=== PATIENT | female | born 1985 | race Caucasian/White ===

== ENCOUNTER 2019-10-19 22:20 | Inpatient (IN) | payer BC, OTHER ==
--- NOTE | 2019-10-19 22:34 | EDM.PDOC ---
ED HPI GENERAL MEDICAL PROBLEM - General Stated Complaint: SKIN CONDITION Time Seen by Provider: 10/19/19 22:21 Source of Information: Reports: Patient History Limitations: Reports: No Limitations - History of Present Illness INITIAL COMMENTS - FREE TEXT/NARRATIVE: 34 yo F history type 2 diabetes presents with perirectal abscess since last . She tried to drain it was very sterile razor blade, and states it ruptured on Friday with minimal drainage. Pain has worsened since. It is localized to the perirectal region, constant, exacerbated with sitting, moderate in severity, nonradiating. Patient denies fever, chills, headache, chest pain, shortness of breath, abdominal pain, focal numbness or weakness. ROS: A 10-point review of systems, other than pertinent positives and negatives as stated per HPI, is otherwise negative Past medical history: No additional pertinent history Past Surgical history: No additional pertinent history Social history: No additional pertinent history Family history: No additional pertinent history PHYSICAL EXAM General: AOx4, GCS = 15, mild distress HEENT: dry mucous membrane Neck: supple, no meningismus, no Kernig or Brudzinski Cardiac: S1S2 tachycardia Respiratory: CTAB, no crackles or rales, no wheezing Abdomen: Soft, nontender, no rebound or guarding, nondistended, no pulsatile mass. perirectal abscess and tenderness Back: nontender Musculoskeletal: NVI distally, no deformity Neuro: No focal deficits, CN 2 - 12 WNL. mid gluteal area Pain Score (Numeric/FACES): 10 - Related Data Allergies Allergy/AdvReac Type Severity Reaction Status Date / Time No Known Allergies Allergy Verified 10/19/19 22:40 Home Meds: Home Meds FLUoxetine [PROzac] 25 mg PO DAILY 10/19/19 [History] metFORMIN [Glucophage] 1,000 mg PO BIDMEALS 10/19/19 [History] ED ROS GENERAL - Review of Systems Review Of Systems: Comprehensive ROS is negative, except as noted in HPI. ED EXAM, GENERAL - Physical Exam Exam: See Below (see dictation) Course - Vital Signs Last Recorded V/S: Last Vital Signs Temp 97.5 F 10/19/19 22:40 Pulse 107 H 10/19/19 23:25 Resp 18 10/19/19 23:25 BP 107/69 10/19/19 23:25 Pulse Ox 98 10/19/19 23:25 - Orders/Labs/Meds Orders: Active Orders 24 hr Category Date Time Status Admission Status [Patient Status] [ADT] Stat ADT 10/20/19 01:37 Ordered CORONAVIRUS COVID-19 PCR PHL Stat Lab 10/20/19 01:30 Ordered CULTURE BLOOD [BC] Stat Lab 10/20/19 01:30 Ordered CULTURE BLOOD [BC] Stat Lab 10/20/19 01:35 Ordered LACTIC ACID,WHOLE BLOOD [BG] Stat Lab 10/20/19 01:36 Ordered Lactated Ringers [Ringers, Lactated] 1,000 ml Med 10/20/19 01:40 Ordered IV .BOLUS Piperacillin/Tazobactam [Piperacil-Tazobact] 3.375 gm Med 10/20/19 01:28 Ordered Sodium Chloride 0.9% [Normal Saline] 50 ml IV ONETIME Vancomycin 1 gm Med 10/20/19 01:28 Ordered Sodium Chloride 0.9% [Normal Saline (AdvBag)] 250 ml IV ONETIME Medication Orders Piperacillin Sod/Tazobactam (Sod 3.375 gm/ Sodium Chloride) 50 mls @ 100 mls/hr IV ONETIME ONE Stop: 10/20/19 01:57 Vancomycin HCl 1 gm/ Sodium (Chloride) 250 mls @ 166 mls/hr IV ONETIME ONE Stop: 10/20/19 02:58 Labs: Laboratory Tests 10/19/19 10/19/19 10/19/19 Range/Units 23:10 23:10 23:10 WBC 12.51 H (4.0-11.0) K/uL RBC 3.89 L (4.30-5.90) M/uL Hgb 11.9 L (12.0-16.0) g/dL Hct 35.7 L (36.0-46.0) % MCV 91.8 (80.0-98.0) fL MCH 30.6 (27.0-32.0) pg MCHC 33.3 (31.0-37.0) g/dL RDW Std Deviation 43.1 (28.0-62.0) fl RDW Coeff of [place] 13 (11.0-15.0) % Plt Count 411 H (150-400) K/uL MPV 10.00 (7.40-12.00) fL Neut % (Auto) 82.2 H (48.0-80.0) % Lymph % (Auto) 11.2 L (16.0-40.0) % [place] % (Auto) 5.6 (0.0-15.0) % Eos % (Auto) 0.8 (0.0-7.0) % Baso % (Auto) 0.2 (0.0-1.5) % Neut # (Auto) 10.3 H (1.4-5.7) K/uL Lymph # (Auto) 1.4 (0.6-2.4) K/uL [place] # (Auto) 0.7 (0.0-0.8) K/uL Eos # (Auto) 0.1 (0.0-0.7) K/uL Baso # (Auto) 0.0 (0.0-0.1) K/uL Nucleated RBC % 0.0 /100WBC Nucleated RBCs # 0 K/uL APTT 25.0 (18.6-31.3) SEC Sodium 132 L (136-145) mmol/L Potassium 4.2 (3.5-5.1) mmol/L Chloride 100 (98-107) mmol/L Carbon Dioxide 18.5 L (21.0-32.0) mmol/L BUN 20 H (7.0-18.0) mg/dL Creatinine 1.2 H (0.6-1.0) mg/dL Est Cr Clr Drug Dosing 66.01 mL/min Estimated GFR (MDRD) 51.1 ml/min Glucose 615 H* (74-106) mg/dL Calcium 8.8 (8.5-10.1) mg/dL Total Bilirubin 0.2 (0.2-1.0) mg/dL AST 10 L (15-37) IU/L ALT 9 L (14-63) IU/L Alkaline Phosphatase 93 (46-116) U/L Total Protein 7.3 (6.4-8.2) g/dL Albumin 3.3 L (3.4-5.0) g/dL Globulin 4.0 (2.6-4.0) g/dL Albumin/Globulin Ratio 0.8 L (0.9-1.6) HCG, Qual (NEG) Ketones (NEG) 10/19/19 10/20/19 Range/Units 23:10 23:10 WBC (4.0-11.0) K/uL RBC (4.30-5.90) M/uL Hgb (12.0-16.0) g/dL Hct (36.0-46.0) % MCV (80.0-98.0) fL MCH (27.0-32.0) pg MCHC (31.0-37.0) g/dL RDW Std Deviation (28.0-62.0) fl RDW Coeff of [place] (11.0-15.0) % Plt Count (150-400) K/uL MPV (7.40-12.00) fL Neut % (Auto) (48.0-80.0) % Lymph % (Auto) (16.0-40.0) % [place] % (Auto) (0.0-15.0) % Eos % (Auto) (0.0-7.0) % Baso % (Auto) (0.0-1.5) % Neut # (Auto) (1.4-5.7) K/uL Lymph # (Auto) (0.6-2.4) K/uL [place] # (Auto) (0.0-0.8) K/uL Eos # (Auto) (0.0-0.7) K/uL Baso # (Auto) (0.0-0.1) K/uL Nucleated RBC % /100WBC Nucleated RBCs # K/uL APTT (18.6-31.3) SEC Sodium (136-145) mmol/L Potassium (3.5-5.1) mmol/L Chloride (98-107) mmol/L Carbon Dioxide (21.0-32.0) mmol/L BUN (7.0-18.0) mg/dL Creatinine (0.6-1.0) mg/dL Est Cr Clr Drug Dosing mL/min Estimated GFR (MDRD) ml/min Glucose (74-106) mg/dL Calcium (8.5-10.1) mg/dL Total Bilirubin (0.2-1.0) mg/dL AST (15-37) IU/L ALT (14-63) IU/L Alkaline Phosphatase (46-116) U/L Total Protein (6.4-8.2) g/dL Albumin (3.4-5.0) g/dL Globulin (2.6-4.0) g/dL Albumin/Globulin Ratio (0.9-1.6) HCG, Qual NEGATIVE (NEG) Ketones NEGATIVE (NEG) Meds: Medications Generic Name Dose Route Start Last Admin Trade Name Freq PRN Reason Stop Dose Admin Piperacillin Sod/Tazobactam 50 mls @ 100 mls/hr 10/20/19 01:28 Sod 3.375 gm/ Sodium Chloride IV 10/20/19 01:57 ONETIME ONE Vancomycin HCl 1 gm/ Sodium 250 mls @ 166 mls/hr 10/20/19 01:28 Chloride IV 10/20/19 02:58 ONETIME ONE Discontinued Medications Generic Name Dose Route Start Last Admin Trade Name Freq PRN Reason Stop Dose Admin Lactated Ringer's 1,000 mls @ 999 mls/hr 10/19/19 23:08 10/19/19 23:29 Ringers, Lactated IV 10/20/19 00:08 999 mls/hr .BOLUS ONE Administration Lactated Ringer's 1,000 mls @ 999 mls/hr 10/20/19 00:12 10/20/19 00:40 Ringers, Lactated IV 10/20/19 01:12 999 mls/hr .BOLUS ONE Administration Insulin Human Regular 8 unit 10/20/19 00:13 10/20/19 00:41 Novolin R IVPUSH 10/20/19 00:14 8 unit ONETIME ONE Administration Protocol Iopamidol 75 ml 10/20/19 00:38 10/20/19 00:39 Isovue Multipack-370 (76%) IVPUSH 10/20/19 00:39 75 ml ONETIME STA Administration Morphine Sulfate 4 mg 10/19/19 23:08 10/19/19 23:29 Morphine IVPUSH 10/19/19 23:09 4 mg ONETIME ONE Administration - Re-Assessments/Exams Free Text/Narrative Re-Assessment/Exam: 10/20/19 00:13 Ordered second liter IV fluids and 8 units IV regular insulin for blood glucose = 615 with anion gap of 13 10/20/19 01:[address] Robb, who agrees to admit patient to obs/tele. Initiated vancomycin and zosyn IV. The hospitalist's documentation supersedes all other documentation on this patient with regard to any conflicts or discrepancies from this point forward. Any emergency conditions have been treated to the ability of the ED prior to admission. 10/20/19 01:41 SHe was ordered 3L IVF, given IV Abx. She is hemodynamically stable after fluid resuscitation. Blood cultures x2 and lactate drawn. Departure - Departure Time of Disposition: 01:39 Disposition: Refer to Observation Condition: Good Clinical Impression: Cellulitis, Abscess, Hyperglycemia, Sepsis - Discharge Information *PRESCRIPTION DRUG MONITORING PROGRAM REVIEWED*: Not Applicable *COPY OF PRESCRIPTION DRUG MONITORING REPORT IN PATIENT LANG: Not Applicable Referrals: PCP,Not In Area [Primary Care Provider] - Critical Care Note - Critical Care Note Total Time (mins): 40 Comments: Critical Care: The high probability of sudden, clinically significant deterioration in the patient's condition required the highest level of my preparedness to intervene urgently. The services I provided to this patient were to treat and/or prevent clinically significant deterioration. Services included the following: chart data review, reviewing nursing notes and/or old charts, documentation time, analysis consultant collaboration regarding findings and treatment options, medication orders and management, direct patient care, vital sign assessments and ordering, interpreting and reviewing diagnostic studies/lab tests. Aggregate critical care time includes only time during which I was engaged in work directly related to the patient's care, as described above, whether at the bedside or elsewhere in the Emergency Department. It did not include time spent performing other reported procedures or the services of residents, students, nurses or physician assistants. Frequent interventions and/or frequent repeat evaluations were required as well as counseling and coordination of care regarding prognosis, treatments, and discussions with patient, staff and consultants. Critical Care (excluding other procedures): 40 minutes Sepsis Event Note (ED) - Focused Exam Vital Signs: Vital Signs Temp Pulse Resp BP Pulse Ox 10/19/19 23:25 107 H 18 107/69 98 10/19/19 22:40 97.5 F 126 H 18 144/94 H 98 - My Orders Last 24 Hours: My Active Orders 10/20/19 01:28 Piperacillin/Tazobactam [Piperacil-Tazobact] 3.375 gm Sodium Chloride 0.9% [Normal Saline] 50 ml IV ONETIME Vancomycin 1 gm Sodium Chloride 0.9% [Normal Saline (AdvBag)] 250 ml IV ONETIME 10/20/19 01:30 CORONAVIRUS COVID-19 PCR PHL Stat CULTURE BLOOD [BC] Stat 10/20/19 01:35 CULTURE BLOOD [BC] Stat 10/20/19 01:36 LACTIC ACID,WHOLE BLOOD [BG] Stat 10/20/19 01:37 Admission Status [Patient Status] [ADT] Stat 10/20/19 01:40 Lactated Ringers [Ringers, Lactated] 1,000 ml IV .BOLUS - Assessment/Plan Last 24 Hours: My Active Orders 10/20/19 01:28 Piperacillin/Tazobactam [Piperacil-Tazobact] 3.375 gm Sodium Chloride 0.9% [Normal Saline] 50 ml IV ONETIME Vancomycin 1 gm Sodium Chloride 0.9% [Normal Saline (AdvBag)] 250 ml IV ONETIME 10/20/19 01:30 CORONAVIRUS COVID-19 PCR PHL Stat CULTURE BLOOD [BC] Stat 10/20/19 01:35 CULTURE BLOOD [BC] Stat 10/20/19 01:36 LACTIC ACID,WHOLE BLOOD [BG] Stat 10/20/19 01:37 Admission Status [Patient Status] [ADT] Stat 10/20/19 01:40 Lactated Ringers [Ringers, Lactated] 1,000 ml IV .BOLUS
[2019-10-19] MEDS ORDERED: Morphine 4 MG/ML Syringe IVPUSH ONE (23:08)
[2019-10-19] MEDS ORDERED: Lactated Ringers 1,000 ML IV ONE (23:08)
[2019-10-19 23:42] LABS: CARBON DIOXIDE,CO2 18.5 mmol/L (21.0-32.0); POTASSIUM,K 4.2 mmol/L (3.5-5.1)
[2019-10-20] MEDS ORDERED: Lactated Ringers 1,000 ML IV ONE ×2 (00:12→01:40)
[2019-10-20] MEDS ORDERED: Insulin Regular, Human 100 Units/ML 10 ML Vial IVPUSH ONE (00:13)
[2019-10-20] MEDS ORDERED: Iopamidol 755 MG/ML 500 ML Multipack Bottle IVPUSH STA (00:38)
--- NOTE | 2019-10-20 00:51 | CT ---
INDICATION: Perirectal abscess TECHNIQUE: CT pelvis with 75 cc Isovue 370 intravenous contrast. COMPARISON: None FINDINGS: Bowel: No dilated loops of large or small intestine. Pelvis: The bladder is unremarkable. Uterus is anteverted. No adnexal mass. Rectum and anus: At the right posterior perianal tissues, just distal to the anal sphincter there is fat stranding which extends into the subcutaneous tissues to the level of the skin surface. There is some amorphous low-density within this area measuring up to 11 millimeters in maximal diameter. This shows some partial rim enhancement. Other: Right inguinal lymph nodes measure up to 12 millimeters in short axis. IMPRESSION: 1. Right posterior perianal fat stranding consistent with cellulitis. Just distal to the anal sphincter there is an 11 millimeter area of poorly defined fluid, likely phlegmon versus early/forming abscess. Please note that all CT scans at this facility use dose modulation, iterative reconstruction, and/or weight-based dosing when appropriate to reduce radiation dose to as low as reasonably achievable. Dictated by Ace Muñiz MD @ Oct 20 2019 12:37AM Signed by Dr. Ace Muñiz @ Oct 20 2019 12:50AM
[2019-10-20] MEDS ORDERED: Piperacillin/Tazobactam 3.375 GM in Sodium Chloride 0.9% 50 ML IV ONE (01:28)
[2019-10-20] MEDS ORDERED: Morphine 4 MG/ML Syringe IVPUSH ONE (02:29)
[2019-10-20] MEDS ORDERED: Ondansetron 4 MG/2 ML SDV IVPUSH ONE (02:29)
[2019-10-20] MEDS: Morphine 2 MG/ML SYRINGE IVPUSH PRN ×4 (04:15→15:04)
[2019-10-20] MEDS: Lactated Ringers 1,000 ML IV SCH ×2 (04:15→17:45)
[2019-10-20] MEDS ORDERED: Insulin Aspart 100 Units/ML 3 ML Pen SUBCUT SCH ×2 (07:30→12:00)
--- NOTE | 2019-10-20 08:31 | PCM.HP.2 ---
<[place] - Last Filed: 10/20/19 12:02> H&P History of Present Illness - General Date of Service: 10/20/19 Admit Problem/Dx: Admission Diagnosis/Problem Admission Diagnosis/Problem Cellulitis Source of Information: Patient - History of Present Illness Initial Comments - Free Text/Narative: Patient is a 34-year-old female with a significant past medical history of type 2 diabetes presenting today with concerns about abscess formation around the rectum. States on noticing some pain in the perirectal area thinking it was a hemorrhoid; noticed pain was worsening and tried popping the region with a razor blade; sterile. However this morning states the pain has increased and proceeded to the ED. Throughout this time patient denies any fevers, chills, body aches, constipation. Did endorse not taking her metformin for the past 4 days secondary to not eating as much. ED; received 2 L IV normal saline with 8 units of insulin secondary to blood glucose of 650. CT pelvis showed area of cellulitis with concerns about early abscess versus phlegmon formation. No rectal involvement at this time Bedside; endorsing pain has improved but is still interfering with her sleep denies any fevers, chills, body aches, constipation, diarrhea. Denies any anal intercourse, foreign body insertion or hair plucking. mid gluteal area Pain Score (Numeric/FACES): 8 - Related Data Allergies/Adverse Reactions: Allergies Allergy/AdvReac Type Severity Reaction Status Date / Time No Known Allergies Allergy Verified 10/20/19 03:43 Home Medications: Home Meds FLUoxetine [PROzac] 20 mg PO DAILY 10/19/19 [History] metFORMIN [Glucophage] 1,000 mg PO BIDMEALS 10/19/19 [History] glyBURIDE [Micronase] 5 mg PO DAILY 10/20/19 [History] Past Medical History HEENT History: Reports: None Cardiovascular History: Reports: None Respiratory History: Reports: None Gastrointestinal History: Reports: None Genitourinary History: Reports: None TREE PRUNER History: Reports: None Musculoskeletal History: Reports: None Neurological History: Reports: None Psychiatric History: Reports: Anxiety, Depression Endocrine/Metabolic History: Reports: Diabetes, Type II Insulin Pump Model and Toddler Caregiver: None Hematologic History: Reports: None Immunologic History: Reports: None Oncologic (Cancer) History: Reports: None Dermatologic History: Reports: None - Infectious Disease History Infectious Disease History: Reports: None - Past Surgical History Head Surgeries/Procedures: Reports: None Female Surgical History: Reports: None Social & Family History - Tobacco Use Smoking Status *Q: Current Every Day Smoker Years of Tobacco use: 20 Packs/Tins Daily: 1.5 - Caffeine Use Caffeine Use: Reports: None - Recreational Drug Use Recreational Drug Use: No H&P Review of Systems - Review of Systems: Review Of Systems: See Below General: Reports: No Symptoms. Denies: Fever, Chills, Malaise HEENT: Reports: No Symptoms Pulmonary: Reports: No Symptoms Cardiovascular: Reports: No Symptoms Gastrointestinal: Reports: Other (rectal pain ). Denies: Bloody Stool, Constipation, Diarrhea, Decreased Appetite, Nausea, Vomiting Genitourinary: Reports: No Symptoms Musculoskeletal: Reports: No Symptoms Psychiatric: Reports: No Symptoms Neurological: Reports: No Symptoms Exam - Exam Exam: See Below - Vital Signs Vital Signs: Last Vital Signs Temp 98.6 F 10/20/19 07:00 Pulse 101 H 10/20/19 07:00 Resp 16 10/20/19 07:00 BP 109/72 10/20/19 07:00 Pulse Ox 97 10/20/19 07:00 Weight: 71.259 kg - Exam Quality Assessment: No: Supplemental Oxygen General: Alert, Oriented HEENT: EOMI, Hearing Intact Neck: Supple, Trachea Midline Lungs: Clear to Auscultation, Normal Respiratory Effort Cardiovascular: Regular Rate, Regular Rhythm GI/Abdominal Exam: Soft, Non-Tender Rectal (Female) Exam: Tenderness, Other (margot-rectal tenderness from 2 o'clock top 6 o'clock position; no signs of bleeding; good rectal tone . nurse :elle present in room; no overt fluctuance appreciated ..) Back Exam: Normal Inspection Extremities: Normal Inspection Skin: Warm, Dry Neurological: Cranial Nerves Intact Neuro Extensive - Mental Status: Alert, Oriented x3, Normal Mood/Affect Neuro Extensive - Motor, Sensory, Reflexes: CN II-XII Intact Psychiatric: Alert, Normal Affect, Normal Mood - Patient Data Lab Results Last 24 hrs: Laboratory Results - last 24 hr 10/19/19 10/19/19 10/19/19 Range/Units 23:10 23:10 23:10 WBC 12.51 H (4.0-11.0) K/uL RBC 3.89 L (4.30-5.90) M/uL Hgb 11.9 L (12.0-16.0) g/dL Hct 35.7 L (36.0-46.0) % MCV 91.8 (80.0-98.0) fL MCH 30.6 (27.0-32.0) pg MCHC 33.3 (31.0-37.0) g/dL RDW Std Deviation 43.1 (28.0-62.0) fl RDW Coeff of Yuin 13 (11.0-15.0) % Plt Count 411 H (150-400) K/uL MPV 10.00 (7.40-12.00) fL Neut % (Auto) 82.2 H (48.0-80.0) % Lymph % (Auto) 11.2 L (16.0-40.0) % Arthur % (Auto) 5.6 (0.0-15.0) % Eos % (Auto) 0.8 (0.0-7.0) % Baso % (Auto) 0.2 (0.0-1.5) % Neut # (Auto) 10.3 H (1.4-5.7) K/uL Lymph # (Auto) 1.4 (0.6-2.4) K/uL Arthur # (Auto) 0.7 (0.0-0.8) K/uL Eos # (Auto) 0.1 (0.0-0.7) K/uL Baso # (Auto) 0.0 (0.0-0.1) K/uL Nucleated RBC % 0.0 /100WBC Nucleated RBCs # 0 K/uL APTT 25.0 (18.6-31.3) SEC Lactate (0.20-2.00) mmol/L Sodium 132 L (136-145) mmol/L Potassium 4.2 (3.5-5.1) mmol/L Chloride 100 (98-107) mmol/L Carbon Dioxide 18.5 L (21.0-32.0) mmol/L BUN 20 H (7.0-18.0) mg/dL Creatinine 1.2 H (0.6-1.0) mg/dL Est Cr Clr Drug Dosing 66.01 mL/min Estimated GFR (MDRD) 51.1 ml/min Glucose 615 H* (74-106) mg/dL POC Glucose (60-110) mg/dL Calcium 8.8 (8.5-10.1) mg/dL Total Bilirubin 0.2 (0.2-1.0) mg/dL AST 10 L (15-37) IU/L ALT 9 L (14-63) IU/L Alkaline Phosphatase 93 (46-116) U/L Total Protein 7.3 (6.4-8.2) g/dL Albumin 3.3 L (3.4-5.0) g/dL Globulin 4.0 (2.6-4.0) g/dL Albumin/Globulin Ratio 0.8 L (0.9-1.6) HCG, Qual (NEG) Urine Color Urine Appearance Urine pH (5.0-8.0) Ur Specific [place] (1.001-1.035) Urine Protein (NEGATIVE) mg/dL Urine Glucose (UA) (NEGATIVE) mg/dL Urine Ketones (NEGATIVE) mg/dL Urine Occult Blood (NEGATIVE) Urine Nitrite (NEGATIVE) Urine Bilirubin (NEGATIVE) Urine Urobilinogen (<2.0) EU/dL Ur Leukocyte Esterase (NEGATIVE) Urine RBC (0-2/HPF) Urine WBC (0-5/HPF) Ur Epithelial Cells (NONE-FEW) Urine Bacteria (NEGATIVE) Urine Mucus (NONE-MOD) Ketones (NEG) SARS Virus RNA (PCR) (NEGATIVE) 10/19/19 10/20/19 10/20/19 Range/Units 23:10 01:30 01:45 WBC (4.0-11.0) K/uL RBC (4.30-5.90) M/uL Hgb (12.0-16.0) g/dL Hct (36.0-46.0) % MCV (80.0-98.0) fL MCH (27.0-32.0) pg MCHC (31.0-37.0) g/dL RDW Std Deviation (28.0-62.0) fl RDW Coeff of Yuni (11.0-15.0) % Plt Count (150-400) K/uL MPV (7.40-12.00) fL Neut % (Auto) (48.0-80.0) % Lymph % (Auto) (16.0-40.0) % Arthur % (Auto) (0.0-15.0) % Eos % (Auto) (0.0-7.0) % Baso % (Auto) (0.0-1.5) % Neut # (Auto) (1.4-5.7) K/uL Lymph # (Auto) (0.6-2.4) K/uL Arthur # (Auto) (0.0-0.8) K/uL Eos # (Auto) (0.0-0.7) K/uL Baso # (Auto) (0.0-0.1) K/uL Nucleated RBC % /100WBC Nucleated RBCs # K/uL APTT (18.6-31.3) SEC Lactate (0.20-2.00) mmol/L Sodium (136-145) mmol/L Potassium (3.5-5.1) mmol/L Chloride (98-107) mmol/L Carbon Dioxide (21.0-32.0) mmol/L BUN (7.0-18.0) mg/dL Creatinine (0.6-1.0) mg/dL Est Cr Clr Drug Dosing mL/min Estimated GFR (MDRD) ml/min Glucose (74-106) mg/dL POC Glucose (60-110) mg/dL Calcium (8.5-10.1) mg/dL Total Bilirubin (0.2-1.0) mg/dL AST (15-37) IU/L ALT (14-63) IU/L Alkaline Phosphatase (46-116) U/L Total Protein (6.4-8.2) g/dL Albumin (3.4-5.0) g/dL Globulin (2.6-4.0) g/dL Albumin/Globulin Ratio (0.9-1.6) HCG, Qual NEGATIVE (NEG) Urine Color YELLOW Urine Appearance CLEAR Urine pH 5.5 (5.0-8.0) Ur Specific [place] 1.010 (1.001-1.035) Urine Protein NEGATIVE (NEGATIVE) mg/dL Urine Glucose (UA) >=1000 (NEGATIVE) mg/dL Urine Ketones NEGATIVE (NEGATIVE) mg/dL Urine Occult Blood TRACE-INTACT H (NEGATIVE) Urine Nitrite NEGATIVE (NEGATIVE) Urine Bilirubin NEGATIVE (NEGATIVE) Urine Urobilinogen 0.2 (<2.0) EU/dL Ur Leukocyte Esterase NEGATIVE (NEGATIVE) Urine RBC NONE SEEN (0-2/HPF) Urine WBC 0-1 (0-5/HPF) Ur Epithelial Cells RARE (NONE-FEW) Urine Bacteria RARE (NEGATIVE) Urine Mucus LIGHT (NONE-MOD) Ketones (NEG) SARS Virus RNA (PCR) NEGATIVE (NEGATIVE) 10/20/19 10/20/19 10/20/19 Range/Units 01:53 03:16 06:27 WBC (4.0-11.0) K/uL RBC (4.30-5.90) M/uL Hgb (12.0-16.0) g/dL Hct (36.0-46.0) % MCV (80.0-98.0) fL MCH (27.0-32.0) pg MCHC (31.0-37.0) g/dL RDW Std Deviation (28.0-62.0) fl RDW Coeff of Yuni (11.0-15.0) % Plt Count (150-400) K/uL MPV (7.40-12.00) fL Neut % (Auto) (48.0-80.0) % Lymph % (Auto) (16.0-40.0) % Arthur % (Auto) (0.0-15.0) % Eos % (Auto) (0.0-7.0) % Baso % (Auto) (0.0-1.5) % Neut # (Auto) (1.4-5.7) K/uL Lymph # (Auto) (0.6-2.4) K/uL Arthur # (Auto) (0.0-0.8) K/uL Eos # (Auto) (0.0-0.7) K/uL Baso # (Auto) (0.0-0.1) K/uL Nucleated RBC % /100WBC Nucleated RBCs # K/uL APTT (18.6-31.3) SEC Lactate 2.0 (0.20-2.00) mmol/L Sodium (136-145) mmol/L Potassium (3.5-5.1) mmol/L Chloride (98-107) mmol/L Carbon Dioxide (21.0-32.0) mmol/L BUN (7.0-18.0) mg/dL Creatinine (0.6-1.0) mg/dL Est Cr Clr Drug Dosing mL/min Estimated GFR (MDRD) ml/min Glucose (74-106) mg/dL POC Glucose 192 H 202 H (60-110) mg/dL Calcium (8.5-10.1) mg/dL Total Bilirubin (0.2-1.0) mg/dL AST (15-37) IU/L ALT (14-63) IU/L Alkaline Phosphatase (46-116) U/L Total Protein (6.4-8.2) g/dL Albumin (3.4-5.0) g/dL Globulin (2.6-4.0) g/dL Albumin/Globulin Ratio (0.9-1.6) HCG, Qual (NEG) Urine Color Urine Appearance Urine pH (5.0-8.0) Ur Specific [place] (1.001-1.035) Urine Protein (NEGATIVE) mg/dL Urine Glucose (UA) (NEGATIVE) mg/dL Urine Ketones (NEGATIVE) mg/dL Urine Occult Blood (NEGATIVE) Urine Nitrite (NEGATIVE) Urine Bilirubin (NEGATIVE) Urine Urobilinogen (<2.0) EU/dL Ur Leukocyte Esterase (NEGATIVE) Urine RBC (0-2/HPF) Urine WBC (0-5/HPF) Ur Epithelial Cells (NONE-FEW) Urine Bacteria (NEGATIVE) Urine Mucus (NONE-MOD) Ketones (NEG) SARS Virus RNA (PCR) (NEGATIVE) 10/20/19 Range/Units 23:10 WBC (4.0-11.0) K/uL RBC (4.30-5.90) M/uL Hgb (12.0-16.0) g/dL Hct (36.0-46.0) % MCV (80.0-98.0) fL MCH (27.0-32.0) pg MCHC (31.0-37.0) g/dL RDW Std Deviation (28.0-62.0) fl RDW Coeff of Yuni (11.0-15.0) % Plt Count (150-400) K/uL MPV (7.40-12.00) fL Neut % (Auto) (48.0-80.0) % Lymph % (Auto) (16.0-40.0) % Arthur % (Auto) (0.0-15.0) % Eos % (Auto) (0.0-7.0) % Baso % (Auto) (0.0-1.5) % Neut # (Auto) (1.4-5.7) K/uL Lymph # (Auto) (0.6-2.4) K/uL Arthur # (Auto) (0.0-0.8) K/uL Eos # (Auto) (0.0-0.7) K/uL Baso # (Auto) (0.0-0.1) K/uL Nucleated RBC % /100WBC Nucleated RBCs # K/uL APTT (18.6-31.3) SEC Lactate (0.20-2.00) mmol/L Sodium (136-145) mmol/L Potassium (3.5-5.1) mmol/L Chloride (98-107) mmol/L Carbon Dioxide (21.0-32.0) mmol/L BUN (7.0-18.0) mg/dL Creatinine (0.6-1.0) mg/dL Est Cr Clr Drug Dosing mL/min Estimated GFR (MDRD) ml/min Glucose (74-106) mg/dL POC Glucose (60-110) mg/dL Calcium (8.5-10.1) mg/dL Total Bilirubin (0.2-1.0) mg/dL AST (15-37) IU/L ALT (14-63) IU/L Alkaline Phosphatase (46-116) U/L Total Protein (6.4-8.2) g/dL Albumin (3.4-5.0) g/dL Globulin (2.6-4.0) g/dL Albumin/Globulin Ratio (0.9-1.6) HCG, Qual (NEG) Urine Color Urine Appearance Urine pH (5.0-8.0) Ur Specific [place] (1.001-1.035) Urine Protein (NEGATIVE) mg/dL Urine Glucose (UA) (NEGATIVE) mg/dL Urine Ketones (NEGATIVE) mg/dL Urine Occult Blood (NEGATIVE) Urine Nitrite (NEGATIVE) Urine Bilirubin (NEGATIVE) Urine Urobilinogen (<2.0) EU/dL Ur Leukocyte Esterase (NEGATIVE) Urine RBC (0-2/HPF) Urine WBC (0-5/HPF) Ur Epithelial Cells (NONE-FEW) Urine Bacteria (NEGATIVE) Urine Mucus (NONE-MOD) Ketones NEGATIVE (NEG) SARS Virus RNA (PCR) (NEGATIVE) Result Diagrams: 10/20/19 11:15 10/20/19 11:15 Sepsis Event Note - Evaluation Sepsis Screening Result: No Definite Risk - Focused Exam Vital Signs: Vital Signs Temp Pulse Resp BP Pulse Ox 10/20/19 07:00 98.6 F 101 H 16 109/72 97 10/20/19 03:40 98.2 F 108 H 16 126/78 97 10/20/19 01:44 98.6 F 101 H 18 110/80 97 10/19/19 23:25 107 H 18 107/69 98 10/19/19 22:40 97.5 F 126 H 18 144/94 H 98 Problem List Initiated/Reviewed/Updated: Yes Orders Last 24hrs: Active Orders 24 hr Category Date Time Status Admission Status [Patient Status] [ADT] Stat ADT 10/20/19 01:37 Active Antiembolic Devices [RC] PER UNIT ROUTINE Care 10/20/19 02:58 Active Blood Glucose Check, Bedside [RC] TIDAC Care 10/20/19 02:57 Active Oxygen Therapy [RC] ASDIRECTED Care 10/20/19 02:57 Active Telemetry Monitoring [Cardiac Monitoring] [RC] Q8H Care 10/20/19 03:14 Active Up With Assistance [RC] ASDIRECTED Care 10/20/19 02:57 Active Vital Signs [RC] Q4H Care 10/20/19 02:57 Active [employer] Diet [DIET] Diet 10/20/19 Breakfast Active CULTURE BLOOD [BC] Stat Lab 10/20/19 01:45 Received CULTURE BLOOD [BC] Stat Lab 10/20/19 01:53 Received GLYCOSYLATED HEMOGLOBIN,HGBA1C [CHEM] Routine Lab 10/20/19 08:27 Ordered VANCOMYCIN TROUGH [CHEM] Timed Lab 10/22/19 02:30 Ordered Insulin Aspart [NovoLOG] Med 10/20/19 07:30 Active See Protocol SUBCUT TIDAC Lactated Ringers [Ringers, Lactated] 1,000 ml Med 10/20/19 03:00 Active IV ASDIRECTED Morphine Med 10/20/19 02:57 Active 1 mg IVPUSH Q4H PRN Pharmacy to Dose - Vancomycin Med 10/20/19 03:00 Active 1 dose .XX ASDIRECTED Vancomycin [Vancocin] 1 gm Med 10/20/19 03:30 Active Sodium Chloride 0.9% [Normal Saline (AdvBag)] 250 ml IV Q12H Sequential Compression Device [OM.PC] Routine Oth 10/20/19 02:57 Ordered Medication Orders Lactated Ringer's (Ringers, Lactated) 1,000 mls @ 125 mls/hr IV ASDIRECTED [facility] Last Admin: 10/20/19 04:15 Dose: 125 mls/hr Documented by: ULISES Vancomycin HCl 1 gm/ Sodium (Chloride) 250 mls @ 166 mls/hr IV Q12H [facility] Last Admin: 10/20/19 03:48 Dose: Not Given Documented by: ULISES Insulin Aspart (Novolog) 0 unit SUBCUT TIDAC [facility]; Protocol Last Admin: 10/20/19 07:37 Dose: 6 units Documented by: ULISES Morphine Sulfate (Morphine) 1 mg IVPUSH Q4H PRN PRN Reason: Chest Pain Last Admin: 10/20/19 07:36 Dose: 1 mg Documented by: Admin: 10/20/19 04:15 Dose: 1 mg Documented by: ULISES Vancomycin HCl (Pharmacy To Dose - Vancomycin) 1 dose .XX ASDIRECTED [facility] Assessment/Plan Comment:: Assessment: 1. Margot-rectal cellulitis w. concerns for early abscess vs phlegmon formation 2. Elevated BG in a type II DM 3. Mild leukocytosis 4. Pseudohyponatremia Plan Admit to observation. Full code. i/O;s per routine. GI:pantoprazole 40 DVT: SCD (if surgery required) NPO: until evaluated by surgery 1. Cellulitis: Bcx ordered, afebrile; started on Vancomycin and Zosyn Concerns for early abscess formation vs phlegmon based off of pelvic CT; will consider General surgery consult Denies any constipation/anal intercourse and or trauma Denies any overt pain on defecation; just pressure sensation Mentions some drainage on BM Morphine for pain control 2. DM w. elevated BG: hold PO meds including glyburide and metformin: sliding s saul initiated A1c elevated at 12 <Elias Robb - Last Filed: 10/21/19 10:52> H&P History of Present Illness - General Admit Problem/Dx: Admission Diagnosis/Problem Admission Diagnosis/Problem Cellulitis - History of Present Illness Initial Comments - Free Text/Narative: I performed a history and physical exam of the patient and discussed management with resident. I have reviewed the residents note and agree with documented findings and plan unless otherwise specified in my note. Exam - Vital Signs Vital Signs: Last Vital Signs Temp 37.0 C 10/21/19 07:00 Pulse 90 10/21/19 03:24 Resp 16 10/21/19 07:00 BP 110/63 10/21/19 07:00 Pulse Ox 96 10/21/19 07:00 - Patient Data Lab Results Last 24 hrs: Laboratory Results - last 24 hr 10/20/19 10/20/19 10/20/19 Range/Units 11:15 11:15 11:36 WBC 13.25 H (4.0-11.0) K/uL RBC 3.61 L (4.30-5.90) M/uL Hgb 10.9 L (12.0-16.0) g/dL Hct 32.5 L (36.0-46.0) % MCV 90.0 (80.0-98.0) fL MCH 30.2 (27.0-32.0) pg MCHC 33.5 (31.0-37.0) g/dL RDW Std Deviation 41.7 (28.0-62.0) fl RDW Coeff of Yuni 13 (11.0-15.0) % Plt Count 381 (150-400) K/uL MPV 9.30 (7.40-12.00) fL Neut % (Auto) 84.4 H (48.0-80.0) % Lymph % (Auto) 9.1 L (16.0-40.0) % Arthur % (Auto) 5.6 (0.0-15.0) % Eos % (Auto) 0.6 (0.0-7.0) % Baso % (Auto) 0.3 (0.0-1.5) % Neut # (Auto) 11.2 H (1.4-5.7) K/uL Lymph # (Auto) 1.2 (0.6-2.4) K/uL Arthur # (Auto) 0.7 (0.0-0.8) K/uL Eos # (Auto) 0.1 (0.0-0.7) K/uL Baso # (Auto) 0.0 (0.0-0.1) K/uL Nucleated RBC % 0.0 /100WBC Nucleated RBCs # 0 K/uL Sodium 132 L (136-145) mmol/L Potassium 3.8 (3.5-5.1) mmol/L Chloride 103 (98-107) mmol/L Carbon Dioxide 18.0 L (21.0-32.0) mmol/L BUN 13 (7.0-18.0) mg/dL Creatinine 0.8 (0.6-1.0) mg/dL Est Cr Clr Drug Dosing 99.01 mL/min Estimated GFR (MDRD) > 60.0 ml/min Glucose 329 H (74-106) mg/dL POC Glucose 289 H (60-110) mg/dL Calcium 8.3 L (8.5-10.1) mg/dL 10/20/19 10/20/19 10/21/19 Range/Units 17:45 20:48 05:08 WBC 10.41 (4.0-11.0) K/uL RBC 3.28 L (4.30-5.90) M/uL Hgb 9.8 L (12.0-16.0) g/dL Hct 29.4 L (36.0-46.0) % MCV 89.6 (80.0-98.0) fL MCH 29.9 (27.0-32.0) pg MCHC 33.3 (31.0-37.0) g/dL RDW Std Deviation 40.5 (28.0-62.0) fl RDW Coeff of Yuni 12 (11.0-15.0) % Plt Count 393 (150-400) K/uL MPV 9.70 (7.40-12.00) fL Neut % (Auto) 72.9 (48.0-80.0) % Lymph % (Auto) 17.4 (16.0-40.0) % Arthur % (Auto) 7.7 (0.0-15.0) % Eos % (Auto) 1.6 (0.0-7.0) % Baso % (Auto) 0.4 (0.0-1.5) % Neut # (Auto) 7.6 H (1.4-5.7) K/uL Lymph # (Auto) 1.8 (0.6-2.4) K/uL Arthur # (Auto) 0.8 (0.0-0.8) K/uL Eos # (Auto) 0.2 (0.0-0.7) K/uL Baso # (Auto) 0.0 (0.0-0.1) K/uL Nucleated RBC % 0.0 /100WBC Nucleated RBCs # 0 K/uL Sodium (136-145) mmol/L Potassium (3.5-5.1) mmol/L Chloride (98-107) mmol/L Carbon Dioxide (21.0-32.0) mmol/L BUN (7.0-18.0) mg/dL Creatinine (0.6-1.0) mg/dL Est Cr Clr Drug Dosing mL/min Estimated GFR (MDRD) ml/min Glucose (74-106) mg/dL POC Glucose 207 H 202 H (60-110) mg/dL Calcium (8.5-10.1) mg/dL 10/21/19 10/21/19 10/21/19 Range/Units 05:08 06:29 08:49 WBC (4.0-11.0) K/uL RBC (4.30-5.90) M/uL Hgb (12.0-16.0) g/dL Hct (36.0-46.0) % MCV (80.0-98.0) fL MCH (27.0-32.0) pg MCHC (31.0-37.0) g/dL RDW Std Deviation (28.0-62.0) fl RDW Coeff of [place]uni (11.0-15.0) % Plt Count (150-400) K/uL MPV (7.40-12.00) fL Neut % (Auto) (48.0-80.0) % Lymph % (Auto) (16.0-40.0) % Arthur % (Auto) (0.0-15.0) % Eos % (Auto) (0.0-7.0) % Baso % (Auto) (0.0-1.5) % Neut # (Auto) (1.4-5.7) K/uL Lymph # (Auto) (0.6-2.4) K/uL Arthur # (Auto) (0.0-0.8) K/uL Eos # (Auto) (0.0-0.7) K/uL Baso # (Auto) (0.0-0.1) K/uL Nucleated RBC % /100WBC Nucleated RBCs # K/uL Sodium 136 (136-145) mmol/L Potassium 3.3 L (3.5-5.1) mmol/L Chloride 106 (98-107) mmol/L Carbon Dioxide 17.1 L (21.0-32.0) mmol/L BUN 13 (7.0-18.0) mg/dL Creatinine 0.6 (0.6-1.0) mg/dL Est Cr Clr Drug Dosing 132.02 mL/min Estimated GFR (MDRD) > 60.0 ml/min Glucose 241 H (74-106) mg/dL POC Glucose 232 H 221 H (60-110) mg/dL Calcium 8.4 L (8.5-10.1) mg/dL Result Diagrams: 10/21/19 05:08 10/21/19 05:08 Javi Results Last 24 hrs: Microbiology 10/20/19 01:45 Aerobic Blood Culture - Preliminary Blood NO GROWTH AFTER 1 DAY Anaerobic Blood Culture - Preliminary NO GROWTH AFTER 1 DAY 10/20/19 01:53 Aerobic Blood Culture - Preliminary Blood NO GROWTH AFTER 1 DAY Anaerobic Blood Culture - Preliminary NO GROWTH AFTER 1 DAY Sepsis Event Note - Focused Exam Vital Signs: Vital Signs Temp Pulse Resp BP Pulse Ox 10/21/19 07:00 37.0 C 16 110/63 96 10/21/19 03:24 36.6 C 90 16 99/65 97 10/20/19 22:55 36.6 C 105 H 16 109/69 98 Orders Last 24hrs: Active Orders 24 hr Category Date Time Status Patient Status [ADT] Stat ADT 10/21/19 10:26 Active Accu Check [Blood Glucose Check, Bedside] [RC] TIDMEALS Care 10/20/19 16:49 Active Fecal Occult Blood Collection [RC] ASDIRECTED Care 10/21/19 07:29 Active Notify Provider Consults [RC] ASDIRECTED Care 10/20/19 12:19 Active Consult to Check Processing Clerk [Consult to Diabetic Nurse Cons 10/21/19 07:33 Active Specialist] [CONS] Routine Consult to Physician [CONS] Routine Cons 10/20/19 12:18 Active [employer] Diet [DIET] Diet 10/20/19 Lunch Active BMP [BASIC METABOLIC PANEL,BMP] [CHEM] AM Lab 10/22/19 05:11 Ordered BMP [BASIC METABOLIC PANEL,BMP] [CHEM] AM Lab 10/23/19 05:11 Ordered BMP [BASIC METABOLIC PANEL,BMP] [CHEM] AM Lab 10/24/19 05:11 Ordered CBC WITH AUTO DIFF [HEME] AM Lab 10/22/19 05:11 Ordered CBC WITH AUTO DIFF [HEME] AM Lab 10/23/19 05:11 Ordered CBC WITH AUTO DIFF [HEME] AM Lab 10/24/19 05:11 Ordered VANCOMYCIN TROUGH [CHEM] Timed Lab 10/22/19 02:30 Ordered Acetaminophen/HYDROcodone [[place] 325-5 MG] Med 10/20/19 18:16 Active 1 tab PO Q4H PRN HYDROmorphone [Dilaudid] Med 10/21/19 10:26 Active 0.5 mg IVPUSH Q4H PRN Ibuprofen [Motrin] Med 10/20/19 18:17 Active 400 mg PO Q6H PRN Insulin Aspart [NovoLOG] Med 10/20/19 17:00 Active See Protocol SUBCUT TIDAC Melatonin Med 10/20/19 21:36 Active 6 mg PO BEDTIME PRN Piperacillin/Tazobactam [Piperacil-Tazobact] 3.375 gm Med 10/20/19 11:15 Active Sodium Chloride 0.9% [Normal Saline] 50 ml IV Q6H [place] [OM.PC] Routine Oth 10/20/19 13:35 Ordered Code Status [Resuscitation Status] Routine Resus Stat 10/20/19 14:45 Ordered Medication Orders Hydrocodone Bitart/Acetaminophen ([place] 325-5 Mg) 1 tab PO Q4H PRN PRN Reason: Pain Last Admin: 10/21/19 08:41 Dose: 1 tab Documented by: OSCAR Cosigned by: MICHELLE Admin: 10/21/19 03:54 Dose: 1 tab Documented by: Admin: 10/20/19 22:57 Dose: 1 tab Documented by: Admin: 10/20/19 18:31 Dose: 1 tab Documented by: JEFF Fluoxetine HCl (Prozac) 20 mg PO DAILY [facility] Last Admin: 10/21/19 08:42 Dose: 20 mg Documented by: OSCAR Cosigned by: MICHELLE Admin: 10/20/19 09:53 Dose: 20 mg Documented by: MICHELLE Hydromorphone HCl (Dilaudid) 0.5 mg IVPUSH Q4H PRN PRN Reason: Pain Lactated Ringer's (Ringers, Lactated) 1,000 mls @ 125 mls/hr IV ASDIRECTED [facility] Last Admin: 10/21/19 07:25 Dose: 125 mls/hr Documented by: Infusion: 10/21/19 01:45 Dose: 125 mls/hr Documented by: Admin: 10/20/19 17:45 Dose: 125 mls/hr Documented by: Infusion: 10/20/19 12:15 Dose: 125 mls/hr Documented by: Admin: 10/20/19 04:15 Dose: 125 mls/hr Documented by: ULISES Vancomycin HCl 1 gm/ Sodium (Chloride) 250 mls @ 166 mls/hr IV Q12H [facility] Last Admin: 10/21/19 03:54 Dose: 166 mls/hr Documented by: Infusion: 10/20/19 16:38 Dose: 166 mls/hr Documented by: Admin: 10/20/19 15:07 Dose: 166 mls/hr Documented by: Admin: 10/20/19 03:48 Dose: Not Given Documented by: ULISES Piperacillin Sod/Tazobactam (Sod 3.375 gm/ Sodium Chloride) 50 mls @ 100 mls/hr IV Q6H [facility] Last Admin: 10/21/19 05:36 Dose: 100 mls/hr Documented by: Infusion: 10/20/19 23:30 Dose: 100 mls/hr Documented by: Admin: 10/20/19 23:00 Dose: 100 mls/hr Documented by: Infusion: 10/20/19 17:20 Dose: 100 mls/hr Documented by: Admin: 10/20/19 16:50 Dose: 100 mls/hr Documented by: Infusion: 10/20/19 12:00 Dose: 100 mls/hr Documented by: Admin: 10/20/19 11:30 Dose: 100 mls/hr Documented by: MICHELLE Ibuprofen (Motrin) 400 mg PO Q6H PRN PRN Reason: Pain Last Admin: 10/20/19 20:39 Dose: 400 mg Documented by: SOSA [facility] ([facility]olog) [facility] Protocol Last Admin: 10/21/19 08:50 Dose: 6 units Documented by: OSCAR Cosigned by: MICHELLE Admin: 10/20/19 18:12 Dose: 6 units Documented by: MICHELLE Melatonin (Melatonin) 6 mg PO BEDTIME PRN PRN Reason: Insomnia Last Admin: 10/20/19 22:48 Dose: 6 mg Documented by: SOSA Vancomycin HCl (Pharmacy To Dose - Vancomycin) 1 dose .XX ASDIRECTED [facility]
[2019-10-20] MEDS ORDERED: Morphine 2 MG/ML SYRINGE IVPUSH PRN (08:59)
[2019-10-20 09:30] LABS: HEMOGLOBIN A1C 12.8 % (4.5-6.2)
[2019-10-20] MEDS: FLUoxetine 20 MG Cap PO SCH (09:53)
[2019-10-20] MEDS: Piperacillin/Tazobactam 3.375 GM in Sodium Chloride 0.9% 50 ML IV SCH ×3 (11:30→23:00)
[2019-10-20 11:53] LABS: BLOOD UREA NITROGEN,BUN 13 mg/dL (7.0-18.0); CHLORIDE,CL 103 mmol/L (98-107); GLUCOSE RANDOM 329 mg/dL (74-106); POTASSIUM,K 3.8 mmol/L (3.5-5.1); SODIUM,NA 132 mmol/L (136-145)
--- NOTE | 2019-10-20 12:58 | PCM.CONS ---
H&P History of Present Illness - General Date of Service: 10/20/19 Admit Problem/Dx: Admission Diagnosis/Problem Admission Diagnosis/Problem Cellulitis Source of Information: Patient History Limitations: Reports: No Limitations - History of Present Illness Initial Comments - Free Text/Narative: Patient is a 34-year-old female who was admitted via the emergency room last night with complaints of significant perianal pain and swelling. She states this started last Friday and she thought she may have had an abscess. She says she sterilely prepped. A razor blade and tried to incise this. There was some drainage. She denies any fever or chills. The pain became progressively worse to the point that she finally sought medical attention in the emergency room and was admitted to the hospitalist service last night. I do note that her white count was 13,000 with 84% segs and her lactate was 2.0. Symptom Onset Date: 10/15/19 Duration of Symptoms: Reports: Day(s): Location: Reports: Other (Perianal region) Quality: Reports: Pressure, Throbbing Severity: Moderate Improves with: Reports: Rest Worsens with: Reports: Movement Associated Symptoms: Denies: Confusion, Chest Pain, Fever/Chills, Headaches, Loss of Appetite, Malaise, Nausea/Vomiting mid gluteal area Pain Score (Numeric/FACES): 8 - Related Data Allergies/Adverse Reactions: Allergies Allergy/AdvReac Type Severity Reaction Status Date / Time No Known Allergies Allergy Verified 10/20/19 03:43 Home Medications: Home Meds FLUoxetine [PROzac] 20 mg PO DAILY 10/19/19 [History] metFORMIN [Glucophage] 1,000 mg PO BIDMEALS 10/19/19 [History] glyBURIDE [Micronase] 5 mg PO DAILY 10/20/19 [History] Past Medical History HEENT History: Reports: None Cardiovascular History: Reports: None Respiratory History: Reports: None Gastrointestinal History: Reports: None Genitourinary History: Reports: None [employer] History: Reports: None Musculoskeletal History: Reports: None Neurological History: Reports: None Psychiatric History: Reports: Anxiety, Depression Endocrine/Metabolic History: Reports: Diabetes, Type II Insulin Pump Model and Wellness Assistant: None Hematologic History: Reports: None Immunologic History: Reports: None Oncologic (Cancer) History: Reports: None Dermatologic History: Reports: None - Infectious Disease History Infectious Disease History: Reports: None - Past Surgical History Head Surgeries/Procedures: Reports: None GI Surgical History: Reports: Appendectomy Female Surgical History: Reports: None Social & Family History - Tobacco Use Smoking Status *Q: Current Every Day Smoker Years of Tobacco use: 20 Packs/Tins Daily: 1.5 - Caffeine Use Caffeine Use: Reports: None - Recreational Drug Use Recreational Drug Use: No H&P Review of Systems - Review of Systems: Review Of Systems: See Below General: Denies: Fever, Chills, Malaise, Weakness, Fatigue HEENT: Reports: No Symptoms Pulmonary: Denies: Shortness of Breath, Wheezing Cardiovascular: Denies: Chest Pain, Palpitations, Dyspnea on Exertion Gastrointestinal: Reports: Flatus. Denies: Abdominal Pain, Anorexia, Black Stool, Bloody Stool, Constipation, Diarrhea, Decreased Appetite, Distension, Hematemesis, Hematochezia, Melena, Nausea, Stool Incontinence, Vomiting Genitourinary: Denies: Dysuria, Frequency, Burning, Pain, Urgency Musculoskeletal: Denies: Neck Pain, Shoulder Pain Skin: Denies: Cyanosis, Jaundice, Mottled, Pallor, Diaphoresis Psychiatric: Denies: Confusion, Depression, Mood Lability, Anxiety Neurological: Denies: Confusion, Dizziness, Headache Hematologic/Lymphatic: Reports: No Symptoms Immunologic: Reports: No Symptoms Exam - Exam Exam: See Below - Vital Signs Vital Signs: Last Vital Signs Temp 98.6 F 10/20/19 07:00 Pulse 101 H 10/20/19 07:00 Resp 16 10/20/19 07:00 BP 109/72 10/20/19 07:00 Pulse Ox 97 10/20/19 07:00 Weight: 157 lb 1.6 oz - Exam Quality Assessment: No: Supplemental Oxygen, Central Line/PICC, Urinary Catheter General: Alert, Oriented, Cooperative, Moderate Distress HEENT: Conjunctiva Clear, EACs Clear, Nares Patent, Pupils Equal, Pupils Reactive. No: Scleral Icterus Neck: Supple, Trachea Midline Lungs: Clear to Auscultation, Normal Respiratory Effort Cardiovascular: Regular Rate, Regular Rhythm, Normal S1, Normal S2, Tachycardia (Mild) GI/Abdominal Exam: Normal Bowel Sounds, Soft, Non-Tender (Female) Exam: Deferred Rectal (Female) Exam: Tenderness, Other (Patient does have significant cellulitis along the right buttock. No fluctuant mass is noted.) Extremities: Normal Inspection, Normal Range of Motion, Non-Tender. No: Keisha's Sign Skin: Warm, Dry, Intact Neurological: Cranial Nerves Intact Neuro Extensive - Mental Status: Alert, Oriented x3, Normal Mood/Affect Psychiatric: Alert, Normal Affect, Normal Mood. No: Anxious, Depressed - Patient Data Lab Results Last 24 hrs: Laboratory Results - last 24 hr 10/19/19 10/19/19 10/19/19 Range/Units 23:10 23:10 23:10 WBC 12.51 H (4.0-11.0) K/uL RBC 3.89 L (4.30-5.90) M/uL Hgb 11.9 L (12.0-16.0) g/dL Hct 35.7 L (36.0-46.0) % MCV 91.8 (80.0-98.0) fL MCH 30.6 (27.0-32.0) pg MCHC 33.3 (31.0-37.0) g/dL RDW Std Deviation 43.1 (28.0-62.0) fl RDW Coeff of [place]uni 13 (11.0-15.0) % Plt Count 411 H (150-400) K/uL MPV 10.00 (7.40-12.00) fL Neut % (Auto) 82.2 H (48.0-80.0) % Lymph % (Auto) 11.2 L (16.0-40.0) % Dare % (Auto) 5.6 (0.0-15.0) % Eos % (Auto) 0.8 (0.0-7.0) % Baso % (Auto) 0.2 (0.0-1.5) % Neut # (Auto) 10.3 H (1.4-5.7) K/uL Lymph # (Auto) 1.4 (0.6-2.4) K/uL Dare # (Auto) 0.7 (0.0-0.8) K/uL Eos # (Auto) 0.1 (0.0-0.7) K/uL Baso # (Auto) 0.0 (0.0-0.1) K/uL Nucleated RBC % 0.0 /100WBC Nucleated RBCs # 0 K/uL APTT 25.0 (18.6-31.3) SEC Lactate (0.20-2.00) mmol/L Sodium 132 L (136-145) mmol/L Potassium 4.2 (3.5-5.1) mmol/L Chloride 100 (98-107) mmol/L Carbon Dioxide 18.5 L (21.0-32.0) mmol/L BUN 20 H (7.0-18.0) mg/dL Creatinine 1.2 H (0.6-1.0) mg/dL Est Cr Clr Drug Dosing 66.01 mL/min Estimated GFR (MDRD) 51.1 ml/min Glucose 615 H* (74-106) mg/dL POC Glucose (60-110) mg/dL Hemoglobin A1c (4.5-6.2) % Calcium 8.8 (8.5-10.1) mg/dL Total Bilirubin 0.2 (0.2-1.0) mg/dL AST 10 L (15-37) IU/L ALT 9 L (14-63) IU/L Alkaline Phosphatase 93 (46-116) U/L Total Protein 7.3 (6.4-8.2) g/dL Albumin 3.3 L (3.4-5.0) g/dL Globulin 4.0 (2.6-4.0) g/dL Albumin/Globulin Ratio 0.8 L (0.9-1.6) HCG, Qual (NEG) Urine Color Urine Appearance Urine pH (5.0-8.0) Ur Specific [place] (1.001-1.035) Urine Protein (NEGATIVE) mg/dL Urine Glucose (UA) (NEGATIVE) mg/dL Urine Ketones (NEGATIVE) mg/dL Urine Occult Blood (NEGATIVE) Urine Nitrite (NEGATIVE) Urine Bilirubin (NEGATIVE) Urine Urobilinogen (<2.0) EU/dL Ur Leukocyte Esterase (NEGATIVE) Urine RBC (0-2/HPF) Urine WBC (0-5/HPF) Ur Epithelial Cells (NONE-FEW) Urine Bacteria (NEGATIVE) Urine Mucus (NONE-MOD) Ketones (NEG) SARS Virus RNA (PCR) (NEGATIVE) 10/19/19 10/19/19 10/20/19 Range/Units 23:10 23:10 01:30 WBC (4.0-11.0) K/uL RBC (4.30-5.90) M/uL Hgb (12.0-16.0) g/dL Hct (36.0-46.0) % MCV (80.0-98.0) fL MCH (27.0-32.0) pg MCHC (31.0-37.0) g/dL RDW Std Deviation (28.0-62.0) fl RDW Coeff of [place] (11.0-15.0) % Plt Count (150-400) K/uL MPV (7.40-12.00) fL Neut % (Auto) (48.0-80.0) % Lymph % (Auto) (16.0-40.0) % Dare % (Auto) (0.0-15.0) % Eos % (Auto) (0.0-7.0) % Baso % (Auto) (0.0-1.5) % Neut # (Auto) (1.4-5.7) K/uL Lymph # (Auto) (0.6-2.4) K/uL Dare # (Auto) (0.0-0.8) K/uL Eos # (Auto) (0.0-0.7) K/uL Baso # (Auto) (0.0-0.1) K/uL Nucleated RBC % /100WBC Nucleated RBCs # K/uL APTT (18.6-31.3) SEC Lactate (0.20-2.00) mmol/L Sodium (136-145) mmol/L Potassium (3.5-5.1) mmol/L Chloride (98-107) mmol/L Carbon Dioxide (21.0-32.0) mmol/L BUN (7.0-18.0) mg/dL Creatinine (0.6-1.0) mg/dL Est Cr Clr Drug Dosing mL/min Estimated GFR (MDRD) ml/min Glucose (74-106) mg/dL POC Glucose (60-110) mg/dL Hemoglobin A1c 12.8 H (4.5-6.2) % Calcium (8.5-10.1) mg/dL Total Bilirubin (0.2-1.0) mg/dL AST (15-37) IU/L ALT (14-63) IU/L Alkaline Phosphatase (46-116) U/L Total Protein (6.4-8.2) g/dL Albumin (3.4-5.0) g/dL Globulin (2.6-4.0) g/dL Albumin/Globulin Ratio (0.9-1.6) HCG, Qual NEGATIVE (NEG) Urine Color Urine Appearance Urine pH (5.0-8.0) Ur Specific [place] (1.001-1.035) Urine Protein (NEGATIVE) mg/dL Urine Glucose (UA) (NEGATIVE) mg/dL Urine Ketones (NEGATIVE) mg/dL Urine Occult Blood (NEGATIVE) Urine Nitrite (NEGATIVE) Urine Bilirubin (NEGATIVE) Urine Urobilinogen (<2.0) EU/dL Ur Leukocyte Esterase (NEGATIVE) Urine RBC (0-2/HPF) Urine WBC (0-5/HPF) Ur Epithelial Cells (NONE-FEW) Urine Bacteria (NEGATIVE) Urine Mucus (NONE-MOD) Ketones (NEG) SARS Virus RNA (PCR) NEGATIVE (NEGATIVE) 10/20/19 10/20/19 10/20/19 Range/Units 01:45 01:53 03:16 WBC (4.0-11.0) K/uL RBC (4.30-5.90) M/uL Hgb (12.0-16.0) g/dL Hct (36.0-46.0) % MCV (80.0-98.0) fL MCH (27.0-32.0) pg MCHC (31.0-37.0) g/dL RDW Std Deviation (28.0-62.0) fl RDW Coeff of [place] (11.0-15.0) % Plt Count (150-400) K/uL MPV (7.40-12.00) fL Neut % (Auto) (48.0-80.0) % Lymph % (Auto) (16.0-40.0) % Dare % (Auto) (0.0-15.0) % Eos % (Auto) (0.0-7.0) % Baso % (Auto) (0.0-1.5) % Neut # (Auto) (1.4-5.7) K/uL Lymph # (Auto) (0.6-2.4) K/uL Dare # (Auto) (0.0-0.8) K/uL Eos # (Auto) (0.0-0.7) K/uL Baso # (Auto) (0.0-0.1) K/uL Nucleated RBC % /100WBC Nucleated RBCs # K/uL APTT (18.6-31.3) SEC Lactate 2.0 (0.20-2.00) mmol/L Sodium (136-145) mmol/L Potassium (3.5-5.1) mmol/L Chloride (98-107) mmol/L Carbon Dioxide (21.0-32.0) mmol/L BUN (7.0-18.0) mg/dL Creatinine (0.6-1.0) mg/dL Est Cr Clr Drug Dosing mL/min Estimated GFR (MDRD) ml/min Glucose (74-106) mg/dL POC Glucose 192 H (60-110) mg/dL Hemoglobin A1c (4.5-6.2) % Calcium (8.5-10.1) mg/dL Total Bilirubin (0.2-1.0) mg/dL AST (15-37) IU/L ALT (14-63) IU/L Alkaline Phosphatase (46-116) U/L Total Protein (6.4-8.2) g/dL Albumin (3.4-5.0) g/dL Globulin (2.6-4.0) g/dL Albumin/Globulin Ratio (0.9-1.6) HCG, Qual (NEG) Urine Color YELLOW Urine Appearance CLEAR Urine pH 5.5 (5.0-8.0) Ur Specific [place] 1.010 (1.001-1.035) Urine Protein NEGATIVE (NEGATIVE) mg/dL Urine Glucose (UA) >=1000 (NEGATIVE) mg/dL Urine Ketones NEGATIVE (NEGATIVE) mg/dL Urine Occult Blood TRACE-INTACT H (NEGATIVE) Urine Nitrite NEGATIVE (NEGATIVE) Urine Bilirubin NEGATIVE (NEGATIVE) Urine Urobilinogen 0.2 (<2.0) EU/dL Ur Leukocyte Esterase NEGATIVE (NEGATIVE) Urine RBC NONE SEEN (0-2/HPF) Urine WBC 0-1 (0-5/HPF) Ur Epithelial Cells RARE (NONE-FEW) Urine Bacteria RARE (NEGATIVE) Urine Mucus LIGHT (NONE-MOD) Ketones (NEG) SARS Virus RNA (PCR) (NEGATIVE) 08/26/20 08/26/20 08/26/20 Range/Units 06:27 11:15 11:15 WBC 13.25 H (4.0-11.0) K/uL RBC 3.61 L (4.30-5.90) M/uL Hgb 10.9 L (12.0-16.0) g/dL Hct 32.5 L (36.0-46.0) % MCV 90.0 (80.0-98.0) fL MCH 30.2 (27.0-32.0) pg MCHC 33.5 (31.0-37.0) g/dL RDW Std Deviation 41.7 (28.0-62.0) fl RDW Coeff of [place] 13 (11.0-15.0) % Plt Count 381 (150-400) K/uL MPV 9.30 (7.40-12.00) fL Neut % (Auto) 84.4 H (48.0-80.0) % Lymph % (Auto) 9.1 L (16.0-40.0) % Dare % (Auto) 5.6 (0.0-15.0) % Eos % (Auto) 0.6 (0.0-7.0) % Baso % (Auto) 0.3 (0.0-1.5) % Neut # (Auto) 11.2 H (1.4-5.7) K/uL Lymph # (Auto) 1.2 (0.6-2.4) K/uL Dare # (Auto) 0.7 (0.0-0.8) K/uL Eos # (Auto) 0.1 (0.0-0.7) K/uL Baso # (Auto) 0.0 (0.0-0.1) K/uL Nucleated RBC % 0.0 /100WBC Nucleated RBCs # 0 K/uL APTT (18.6-31.3) SEC Lactate (0.20-2.00) mmol/L Sodium 132 L (136-145) mmol/L Potassium 3.8 (3.5-5.1) mmol/L Chloride 103 (98-107) mmol/L Carbon Dioxide 18.0 L (21.0-32.0) mmol/L BUN 13 (7.0-18.0) mg/dL Creatinine 0.8 (0.6-1.0) mg/dL Est Cr Clr Drug Dosing 99.01 mL/min Estimated GFR (MDRD) > 60.0 ml/min Glucose 329 H (74-106) mg/dL POC Glucose 202 H (60-110) mg/dL Hemoglobin A1c (4.5-6.2) % Calcium 8.3 L (8.5-10.1) mg/dL Total Bilirubin (0.2-1.0) mg/dL AST (15-37) IU/L ALT (14-63) IU/L Alkaline Phosphatase (46-116) U/L Total Protein (6.4-8.2) g/dL Albumin (3.4-5.0) g/dL Globulin (2.6-4.0) g/dL Albumin/Globulin Ratio (0.9-1.6) HCG, Qual (NEG) Urine Color Urine Appearance Urine pH (5.0-8.0) Ur Specific [place] (1.001-1.035) Urine Protein (NEGATIVE) mg/dL Urine Glucose (UA) (NEGATIVE) mg/dL Urine Ketones (NEGATIVE) mg/dL Urine Occult Blood (NEGATIVE) Urine Nitrite (NEGATIVE) Urine Bilirubin (NEGATIVE) Urine Urobilinogen (<2.0) EU/dL Ur Leukocyte Esterase (NEGATIVE) Urine RBC (0-2/HPF) Urine WBC (0-5/HPF) Ur Epithelial Cells (NONE-FEW) Urine Bacteria (NEGATIVE) Urine Mucus (NONE-MOD) Ketones (NEG) SARS Virus RNA (PCR) (NEGATIVE) 10/20/19 10/20/19 Range/Units 11:36 23:10 WBC (4.0-11.0) K/uL RBC (4.30-5.90) M/uL Hgb (12.0-16.0) g/dL Hct (36.0-46.0) % MCV (80.0-98.0) fL MCH (27.0-32.0) pg MCHC (31.0-37.0) g/dL RDW Std Deviation (28.0-62.0) fl RDW Coeff of [place] (11.0-15.0) % Plt Count (150-400) K/uL MPV (7.40-12.00) fL Neut % (Auto) (48.0-80.0) % Lymph % (Auto) (16.0-40.0) % Dare % (Auto) (0.0-15.0) % Eos % (Auto) (0.0-7.0) % Baso % (Auto) (0.0-1.5) % Neut # (Auto) (1.4-5.7) K/uL Lymph # (Auto) (0.6-2.4) K/uL Dare # (Auto) (0.0-0.8) K/uL Eos # (Auto) (0.0-0.7) K/uL Baso # (Auto) (0.0-0.1) K/uL Nucleated RBC % /100WBC Nucleated RBCs # K/uL APTT (18.6-31.3) SEC Lactate (0.20-2.00) mmol/L Sodium (136-145) mmol/L Potassium (3.5-5.1) mmol/L Chloride (98-107) mmol/L Carbon Dioxide (21.0-32.0) mmol/L BUN (7.0-18.0) mg/dL Creatinine (0.6-1.0) mg/dL Est Cr Clr Drug Dosing mL/min Estimated GFR (MDRD) ml/min Glucose (74-106) mg/dL POC Glucose 289 H (60-110) mg/dL Hemoglobin A1c (4.5-6.2) % Calcium (8.5-10.1) mg/dL Total Bilirubin (0.2-1.0) mg/dL AST (15-37) IU/L ALT (14-63) IU/L Alkaline Phosphatase (46-116) U/L Total Protein (6.4-8.2) g/dL Albumin (3.4-5.0) g/dL Globulin (2.6-4.0) g/dL Albumin/Globulin Ratio (0.9-1.6) HCG, Qual (NEG) Urine Color Urine Appearance Urine pH (5.0-8.0) Ur Specific [place] (1.001-1.035) Urine Protein (NEGATIVE) mg/dL Urine Glucose (UA) (NEGATIVE) mg/dL Urine Ketones (NEGATIVE) mg/dL Urine Occult Blood (NEGATIVE) Urine Nitrite (NEGATIVE) Urine Bilirubin (NEGATIVE) Urine Urobilinogen (<2.0) EU/dL Ur Leukocyte Esterase (NEGATIVE) Urine RBC (0-2/HPF) Urine WBC (0-5/HPF) Ur Epithelial Cells (NONE-FEW) Urine Bacteria (NEGATIVE) Urine Mucus (NONE-MOD) Ketones NEGATIVE (NEG) SARS Virus RNA (PCR) (NEGATIVE) Result Diagrams: 10/20/19 11:15 10/20/19 11:15 Sepsis Event Note - Evaluation Sepsis Screening Result: No Definite Risk - Focused Exam Vital Signs: Vital Signs Temp Pulse Resp BP Pulse Ox 10/20/19 07:00 98.6 F 101 H 16 109/72 97 10/20/19 03:40 98.2 F 108 H 16 126/78 97 10/20/19 01:44 98.6 F 101 H 18 110/80 97 Consult PN Assessment/Plan (1) Perianal cellulitis SNOMED Code(s): 492267151 Code(s): K61.0 - ANAL ABSCESS Current Visit: Yes Assessment:: This is perianal cellulitis with no obvious abscess at the present time. (2) Type 2 diabetes mellitus SNOMED Code(s): 38343045 Code(s): E11.9 - TYPE 2 DIABETES MELLITUS WITHOUT COMPLICATIONS Priority: High Current Visit: Yes Problem List Initiated/Reviewed/Updated: Yes Plan: At the present time I do not see any evidence of an abscess. She does have significant cellulitis and I would certainly continue the antibiotic regimen that you have her on. Additionally, she would benefit from sitz baths, 1-2 times daily. Would also repeat her laboratory studies tomorrow. Patient will also need better control of her her diabetes. Thank you for this consultation.
[2019-10-20] MEDS ORDERED: Acetaminophen 325 MG Tab PO PRN (15:13)
[2019-10-20] MEDS: Insulin Aspart 100 Units/ML 3 ML Pen SUBCUT SCH (18:12)
[2019-10-20] MEDS: Acetaminophen/HYDROcodone 325-5 MG Tab PO PRN ×2 (18:31→22:57)
[2019-10-20] MEDS ORDERED: Insulin Detemir 100 Units/ML 3 ML Pen SUBCUT ONE (19:15)
[2019-10-20] MEDS: Ibuprofen 400 MG Tab PO PRN (20:39)
[2019-10-20] MEDS: Melatonin 3 MG Tab PO PRN (22:48)
[2019-10-21] MEDS: Acetaminophen/HYDROcodone 325-5 MG Tab PO PRN ×4 (03:54→19:30)
[2019-10-21] MEDS: Piperacillin/Tazobactam 3.375 GM in Sodium Chloride 0.9% 50 ML IV SCH ×4 (05:36→23:00)
[2019-10-21 06:17] LABS: BLOOD UREA NITROGEN,BUN 13 mg/dL (7.0-18.0); CARBON DIOXIDE,CO2 17.1 mmol/L (21.0-32.0); CHLORIDE,CL 106 mmol/L (98-107); GLUCOSE RANDOM 241 mg/dL (74-106); POTASSIUM,K 3.3 mmol/L (3.5-5.1); SODIUM,NA 136 mmol/L (136-145)
[2019-10-21] MEDS: Lactated Ringers 1,000 ML IV SCH ×2 (07:25→18:06)
[2019-10-21] MEDS ORDERED: Potassium Chloride 20 MEQ Tab.ER PO ONE (07:30)
--- NOTE | 2019-10-21 08:29 | PCM.PN ---
<[place] - Last Filed: 10/21/19 10:29> - General Info Date of Service: 10/21/19 Subjective Update: Bedside : endorsing a mild NAVARRO; pain improving with PO meds but is noticing swelling is still present - Review of Systems General: Reports: No Symptoms HEENT: Reports: No Symptoms Pulmonary: Reports: No Symptoms Cardiovascular: Reports: No Symptoms Gastrointestinal: Reports: Other (rectal pain ). Denies: Abdominal Pain, Diarrhea, Hematochezia, Nausea, Vomiting Genitourinary: Reports: No Symptoms Musculoskeletal: Reports: No Symptoms Neurological: Reports: No Symptoms - Patient Data Vitals - Most Recent: Last Vital Signs Temp 97.8 F 10/21/19 03:24 Pulse 90 10/21/19 03:24 Resp 16 10/21/19 03:24 BP 99/65 10/21/19 03:24 Pulse Ox 97 10/21/19 03:24 Weight - Most Recent: 71.259 kg I&O - Last 24 Hours: Intake & Output 10/20/19 10/21/19 10/21/19 22:59 06:59 14:59 Intake Total 640 3950 Output Total 850 Balance 640 3100 Lab Results Last 24 Hours: Laboratory Results - last 24 hr 10/19/19 10/20/19 10/20/19 Range/Units 23:10 11:15 11:15 WBC 13.25 H (4.0-11.0) K/uL RBC 3.61 L (4.30-5.90) M/uL Hgb 10.9 L (12.0-16.0) g/dL Hct 32.5 L (36.0-46.0) % MCV 90.0 (80.0-98.0) fL MCH 30.2 (27.0-32.0) pg MCHC 33.5 (31.0-37.0) g/dL RDW Std Deviation 41.7 (28.0-62.0) fl RDW Coeff of Yuni 13 (11.0-15.0) % Plt Count 381 (150-400) K/uL MPV 9.30 (7.40-12.00) fL Neut % (Auto) 84.4 H (48.0-80.0) % Lymph % (Auto) 9.1 L (16.0-40.0) % Wheeler % (Auto) 5.6 (0.0-15.0) % Eos % (Auto) 0.6 (0.0-7.0) % Baso % (Auto) 0.3 (0.0-1.5) % Neut # (Auto) 11.2 H (1.4-5.7) K/uL Lymph # (Auto) 1.2 (0.6-2.4) K/uL Wheeler # (Auto) 0.7 (0.0-0.8) K/uL Eos # (Auto) 0.1 (0.0-0.7) K/uL Baso # (Auto) 0.0 (0.0-0.1) K/uL Nucleated RBC % 0.0 /100WBC Nucleated RBCs # 0 K/uL Sodium 132 L (136-145) mmol/L Potassium 3.8 (3.5-5.1) mmol/L Chloride 103 (98-107) mmol/L Carbon Dioxide 18.0 L (21.0-32.0) mmol/L BUN 13 (7.0-18.0) mg/dL Creatinine 0.8 (0.6-1.0) mg/dL Est Cr Clr Drug Dosing 99.01 mL/min Estimated GFR (MDRD) > 60.0 ml/min Glucose 329 H (74-106) mg/dL POC Glucose (60-110) mg/dL Hemoglobin A1c 12.8 H (4.5-6.2) % Calcium 8.3 L (8.5-10.1) mg/dL 10/20/19 10/20/19 10/20/19 Range/Units 11:36 17:45 20:48 WBC (4.0-11.0) K/uL RBC (4.30-5.90) M/uL Hgb (12.0-16.0) g/dL Hct (36.0-46.0) % MCV (80.0-98.0) fL MCH (27.0-32.0) pg MCHC (31.0-37.0) g/dL RDW Std Deviation (28.0-62.0) fl RDW Coeff of Yuni (11.0-15.0) % Plt Count (150-400) K/uL MPV (7.40-12.00) fL Neut % (Auto) (48.0-80.0) % Lymph % (Auto) (16.0-40.0) % Wheeler % (Auto) (0.0-15.0) % Eos % (Auto) (0.0-7.0) % Baso % (Auto) (0.0-1.5) % Neut # (Auto) (1.4-5.7) K/uL Lymph # (Auto) (0.6-2.4) K/uL Wheeler # (Auto) (0.0-0.8) K/uL Eos # (Auto) (0.0-0.7) K/uL Baso # (Auto) (0.0-0.1) K/uL Nucleated RBC % /100WBC Nucleated RBCs # K/uL Sodium (136-145) mmol/L Potassium (3.5-5.1) mmol/L Chloride (98-107) mmol/L Carbon Dioxide (21.0-32.0) mmol/L BUN (7.0-18.0) mg/dL Creatinine (0.6-1.0) mg/dL Est Cr Clr Drug Dosing mL/min Estimated GFR (MDRD) ml/min Glucose (74-106) mg/dL POC Glucose 289 H 207 H 202 H (60-110) mg/dL Hemoglobin A1c (4.5-6.2) % Calcium (8.5-10.1) mg/dL 10/21/19 10/21/19 Range/Units 05:08 05:08 WBC 10.41 (4.0-11.0) K/uL RBC 3.28 L (4.30-5.90) M/uL Hgb 9.8 L (12.0-16.0) g/dL Hct 29.4 L (36.0-46.0) % MCV 89.6 (80.0-98.0) fL MCH 29.9 (27.0-32.0) pg MCHC 33.3 (31.0-37.0) g/dL RDW Std Deviation 40.5 (28.0-62.0) fl RDW Coeff of Yuni 12 (11.0-15.0) % Plt Count 393 (150-400) K/uL MPV 9.70 (7.40-12.00) fL Neut % (Auto) 72.9 (48.0-80.0) % Lymph % (Auto) 17.4 (16.0-40.0) % Wheeler % (Auto) 7.7 (0.0-15.0) % Eos % (Auto) 1.6 (0.0-7.0) % Baso % (Auto) 0.4 (0.0-1.5) % Neut # (Auto) 7.6 H (1.4-5.7) K/uL Lymph # (Auto) 1.8 (0.6-2.4) K/uL Wheeler # (Auto) 0.8 (0.0-0.8) K/uL Eos # (Auto) 0.2 (0.0-0.7) K/uL Baso # (Auto) 0.0 (0.0-0.1) K/uL Nucleated RBC % 0.0 /100WBC Nucleated RBCs # 0 K/uL Sodium 136 (136-145) mmol/L Potassium 3.3 L (3.5-5.1) mmol/L Chloride 106 (98-107) mmol/L Carbon Dioxide 17.1 L (21.0-32.0) mmol/L BUN 13 (7.0-18.0) mg/dL Creatinine 0.6 (0.6-1.0) mg/dL Est Cr Clr Drug Dosing 132.02 mL/min Estimated GFR (MDRD) > 60.0 ml/min Glucose 241 H (74-106) mg/dL POC Glucose (60-110) mg/dL Hemoglobin A1c (4.5-6.2) % Calcium 8.4 L (8.5-10.1) mg/dL Javi Results Last 24 Hours: Microbiology 10/20/19 01:45 Aerobic Blood Culture - Preliminary Blood NO GROWTH AFTER 1 DAY Anaerobic Blood Culture - Preliminary NO GROWTH AFTER 1 DAY 10/20/19 01:53 Aerobic Blood Culture - Preliminary Blood NO GROWTH AFTER 1 DAY Anaerobic Blood Culture - Preliminary NO GROWTH AFTER 1 DAY Med Orders - Current: Current Medications Hydrocodone Bitart/Acetaminophen ([place] 325-5 Mg) 1 tab PO Q4H PRN PRN Reason: Pain Last Admin: 10/21/19 03:54 Dose: 1 tab Documented by: Fluoxetine HCl (Prozac) 20 mg PO DAILY [facility] Last Admin: 10/20/19 09:53 Dose: 20 mg Documented by: Lactated Ringer's (Ringers, Lactated) 1,000 mls @ 125 mls/hr IV ASDIRECTED [facility] Last Admin: 10/21/19 07:25 Dose: 125 mls/hr Documented by: Vancomycin HCl 1 gm/ Sodium (Chloride) 250 mls @ 166 mls/hr IV Q12H [facility] Last Admin: 10/21/19 03:54 Dose: 166 mls/hr Documented by: Piperacillin Sod/Tazobactam (Sod 3.375 gm/ Sodium Chloride) 50 mls @ 100 mls/hr IV Q6H [facility] Last Admin: 10/21/19 05:36 Dose: 100 mls/hr Documented by: Ibuprofen (Motrin) 400 mg PO Q6H PRN PRN Reason: Pain Last Admin: 10/20/19 20:39 Dose: 400 mg Documented by: Insulin Asp[facility] (Nov[facility]) [facility]; Protocol Last Admin: 10/20/19 18:12 Dose: 6 units Documented by: Melatonin (Melatonin) 6 mg PO BEDTIME PRN PRN Reason: Insomnia Last Admin: 10/20/19 22:48 Dose: 6 mg Documented by: Vancomycin HCl (Pharmacy To Dose - Vancomycin) 1 dose .XX ASDIRECTED [facility] Discontinued Medications Acetaminophen (Tylenol) 650 mg PO Q6H PRN PRN Reason: Pain Last Admin: 10/20/19 15:00 Dose: 650 mg Documented by: Fluoxetine HCl (Prozac) 25 mg PO DAILY [facility] Lactated Ringer's (Ringers, Lactated) 1,000 mls @ 999 mls/hr IV .BOLUS ONE Stop: 10/20/19 00:08 Last Admin: 10/19/19 23:29 Dose: 999 mls/hr Documented by: Lactated Ringer's (Ringers, Lactated) 1,000 mls @ 999 mls/hr IV .BOLUS ONE Stop: 10/20/19 01:12 Last Admin: 10/20/19 00:40 Dose: 999 mls/hr Documented by: Piperacillin Sod/Tazobactam (Sod 3.375 gm/ Sodium Chloride) 50 mls @ 100 mls/hr IV ONETIME ONE Stop: 10/20/19 01:57 Last Admin: 10/20/19 03:47 Dose: 100 mls/hr Documented by: Vancomycin HCl 1 gm/ Sodium (Chloride) 250 mls @ 166 mls/hr IV ONETIME ONE Stop: 10/20/19 02:58 Last Admin: 10/20/19 01:44 Dose: 166 mls/hr Documented by: Lactated Ringer's (Ringers, Lactated) 1,000 mls @ 999 mls/hr IV .BOLUS ONE Stop: 10/20/19 02:40 Last Admin: 10/20/19 01:45 Dose: 999 mls/hr Documented by: Insulin Aspart (Novolog) 0 unit SUBCUT TIDAC [facility]; Protocol Last Admin: 10/20/19 07:37 Dose: 6 units Documented by: Insulin Aspart (Novolog) 0 unit SUBCUT Q6H [facility]; Protocol Last Admin: 10/20/19 11:40 Dose: 9 units Documented by: Insulin Detemir (Levemir) 10 unit SUBCUT ONETIME ONE Stop: 10/20/19 19:16 Last Admin: 10/20/19 20:49 Dose: 10 units Documented by: Insulin Human Regular (Novolin R) 8 unit IVPUSH ONETIME ONE; Protocol Stop: 10/20/19 00:14 Last Admin: 10/20/19 00:41 Dose: 8 unit Documented by: Iopamidol (Isovue Multipack-370 (76%)) 75 ml IVPUSH ONETIME STA Stop: 10/20/19 00:39 Last Admin: 10/20/19 00:39 Dose: 75 ml Documented by: Morphine Sulfate (Morphine) 4 mg IVPUSH ONETIME ONE Stop: 10/19/19 23:09 Last Admin: 10/19/19 23:29 Dose: 4 mg Documented by: Morphine Sulfate (Morphine) 4 mg IVPUSH ONETIME ONE Stop: 10/20/19 02:30 Last Admin: 10/20/19 02:37 Dose: 4 mg Documented by: Morphine Sulfate (Morphine) 1 mg IVPUSH Q4H PRN PRN Reason: Chest Pain Last Admin: 10/20/19 07:36 Dose: 1 mg Documented by: Morphine Sulfate (Morphine) 2 mg IVPUSH Q4H PRN PRN Reason: Pain Morphine Sulfate (Morphine) 2 mg IVPUSH Q4H PRN PRN Reason: Pain Last Admin: 10/20/19 15:04 Dose: 2 mg Documented by: Ondansetron HCl (Zofran) 4 mg IVPUSH ONETIME ONE Stop: 10/20/19 02:30 Last Admin: 10/20/19 02:36 Dose: 4 mg Documented by: Potassium Chloride (Klor-Con M20) 40 meq PO ONETIME ONE Stop: 10/21/19 07:31 - Exam General: Alert, Oriented, Cooperative, No Acute Distress HEENT: EOMI Neck: Supple Lungs: Clear to Auscultation, Normal Respiratory Effort Cardiovascular: Regular Rate, Regular Rhythm GI/Abdominal Exam: Soft, Non-Tender, Other (increasing discharge at 2-3 o'clock position; decreased redness ;soft tissue swelling unchanged... no other changes ) Back Exam: Normal Inspection Skin: Warm, Dry Neurological: No New Focal Deficit Psy/Mental Status: Alert, Normal Affect, Normal Mood Sepsis Event Note - Evaluation Sepsis Screening Result: No Definite Risk - Focused Exam Vital Signs: Vital Signs Temp Pulse Resp BP Pulse Ox 10/21/19 03:24 97.8 F 90 16 99/65 97 10/20/19 22:55 97.8 F 105 H 16 109/69 98 - Problem List Review Problem List Initiated/Reviewed/Updated: Yes - My Orders Last 24 Hours: My Active Orders 10/20/19 09:00 FLUoxetine [PROzac] 20 mg PO DAILY 10/20/19 09:25 Antiembolic Devices [RC] PER UNIT ROUTINE Sequential Compression Device [OM.PC] Routine 10/20/19 Lunch [place] [employer] Diet [DIET] 10/20/19 12:18 Consult to Physician [CONS] Routine 10/20/19 12:19 Notify Provider Consults [RC] ASDIRECTED 10/20/19 13:35 Sitz Bath [OM.PC] Routine 10/20/19 14:45 Code Status [Resuscitation Status] Routine 10/20/19 16:49 Accu Check [Blood Glucose Check, Bedside] [RC] TIDMEALS 10/20/19 17:00 Insulin Aspart [NovoLOG] See Protocol SUBCUT TIDAC 10/20/19 18:16 Acetaminophen/HYDROcodone [[place] 325-5 MG] 1 tab PO Q4H PRN 10/20/19 18:17 Ibuprofen [Motrin] 400 mg PO Q6H PRN 10/21/19 07:29 Fecal Occult Blood Collection [RC] ASDIRECTED 10/21/19 07:33 Consult to Sixth Grade Teacher [Consult to Diabetic Nurse Specialist] [CONS] Routine - Plan Plan:: Assessment: 1. Margot-rectal cellulitis w. concerns for early abscess vs phlegmon formation 2. Elevated BG in a type II DM 3. Mild leukocytosis:resolved 4. Pseudohyponatremia:resolved 5. Hypokalemia Plan Admit to observation. Full code. i/O;s per routine. GI:pantoprazole 40 DVT: SCD (if surgery required) NPO: until evaluated by surgery 1. Cellulitis: Bcx ordered, afebrile; continue on Vancomycin and Zosyn General surgery recommends IV abx + sitz bath with daily monitoring: we appreciate Dr Chase's expertise and help with this case Denies any constipation/anal intercourse and or trauma Denies any overt pain on defecation; just pressure sensation Mentions some drainage on BM Dilaudid for pain control +[place] + ibuprofen 2. DM w. elevated BG: hold PO meds including glyburide and metformin: sliding scale initiated A1c elevated at 12 DM educator consult placed. history of DKA 4 years prior; never on insulin provided Levemir 10 units last night to evaluate for response and tolerability Discussed diet + medication regimen; will reassess based off of insurance/tolerability Hypokalemia: provided with 40 PO mEq of Potassium Chloride in AM ; recheck BMP tomorrow AM <Elias Robb - Last Filed: 10/21/19 10:50> - General Info Subjective Update: I have seen and evaluated the patient and agree with the residents note unless specified in my note - Patient Data Vitals - Most Recent: Last Vital Signs Temp 37.0 C 10/21/19 07:00 Pulse 90 10/21/19 03:24 Resp 16 10/21/19 07:00 BP 110/63 10/21/19 07:00 Pulse Ox 96 10/21/19 07:00 I&O - Last 24 Hours: Intake & Output 10/20/19 10/21/19 10/21/19 22:59 06:59 14:59 Intake Total 640 3950 Output Total 850 Balance 640 3100 Lab Results Last 24 Hours: Laboratory Results - last 24 hr 10/20/19 10/20/19 10/20/19 Range/Units 11:15 11:15 11:36 WBC 13.25 H (4.0-11.0) K/uL RBC 3.61 L (4.30-5.90) M/uL Hgb 10.9 L (12.0-16.0) g/dL Hct 32.5 L (36.0-46.0) % MCV 90.0 (80.0-98.0) fL MCH 30.2 (27.0-32.0) pg MCHC 33.5 (31.0-37.0) g/dL RDW Std Deviation 41.7 (28.0-62.0) fl RDW Coeff of Yuni 13 (11.0-15.0) % Plt Count 381 (150-400) K/uL MPV 9.30 (7.40-12.00) fL Neut % (Auto) 84.4 H (48.0-80.0) % Lymph % (Auto) 9.1 L (16.0-40.0) % Wheeler % (Auto) 5.6 (0.0-15.0) % Eos % (Auto) 0.6 (0.0-7.0) % Baso % (Auto) 0.3 (0.0-1.5) % Neut # (Auto) 11.2 H (1.4-5.7) K/uL Lymph # (Auto) 1.2 (0.6-2.4) K/uL Wheeler # (Auto) 0.7 (0.0-0.8) K/uL Eos # (Auto) 0.1 (0.0-0.7) K/uL Baso # (Auto) 0.0 (0.0-0.1) K/uL Nucleated RBC % 0.0 /100WBC Nucleated RBCs # 0 K/uL Sodium 132 L (136-145) mmol/L Potassium 3.8 (3.5-5.1) mmol/L Chloride 103 (98-107) mmol/L Carbon Dioxide 18.0 L (21.0-32.0) mmol/L BUN 13 (7.0-18.0) mg/dL Creatinine 0.8 (0.6-1.0) mg/dL Est Cr Clr Drug Dosing 99.01 mL/min Estimated GFR (MDRD) > 60.0 ml/min Glucose 329 H (74-106) mg/dL POC Glucose 289 H (60-110) mg/dL Calcium 8.3 L (8.5-10.1) mg/dL 10/20/19 10/20/19 10/21/19 Range/Units 17:45 20:48 05:08 WBC 10.41 (4.0-11.0) K/uL RBC 3.28 L (4.30-5.90) M/uL Hgb 9.8 L (12.0-16.0) g/dL Hct 29.4 L (36.0-46.0) % MCV 89.6 (80.0-98.0) fL MCH 29.9 (27.0-32.0) pg MCHC 33.3 (31.0-37.0) g/dL RDW Std Deviation 40.5 (28.0-62.0) fl RDW Coeff of Yuni 12 (11.0-15.0) % Plt Count 393 (150-400) K/uL MPV 9.70 (7.40-12.00) fL Neut % (Auto) 72.9 (48.0-80.0) % Lymph % (Auto) 17.4 (16.0-40.0) % Wheeler % (Auto) 7.7 (0.0-15.0) % Eos % (Auto) 1.6 (0.0-7.0) % Baso % (Auto) 0.4 (0.0-1.5) % Neut # (Auto) 7.6 H (1.4-5.7) K/uL Lymph # (Auto) 1.8 (0.6-2.4) K/uL Wheeler # (Auto) 0.8 (0.0-0.8) K/uL Eos # (Auto) 0.2 (0.0-0.7) K/uL Baso # (Auto) 0.0 (0.0-0.1) K/uL Nucleated RBC % 0.0 /100WBC Nucleated RBCs # 0 K/uL Sodium (136-145) mmol/L Potassium (3.5-5.1) mmol/L Chloride (98-107) mmol/L Carbon Dioxide (21.0-32.0) mmol/L BUN (7.0-18.0) mg/dL Creatinine (0.6-1.0) mg/dL Est Cr Clr Drug Dosing mL/min Estimated GFR (MDRD) ml/min Glucose (74-106) mg/dL POC Glucose 207 H 202 H (60-110) mg/dL Calcium (8.5-10.1) mg/dL 10/21/19 10/21/19 10/21/19 Range/Units 05:08 06:29 08:49 WBC (4.0-11.0) K/uL RBC (4.30-5.90) M/uL Hgb (12.0-16.0) g/dL Hct (36.0-46.0) % MCV (80.0-98.0) fL MCH (27.0-32.0) pg MCHC (31.0-37.0) g/dL RDW Std Deviation (28.0-62.0) fl RDW Coeff of Yuni (11.0-15.0) % Plt Count (150-400) K/uL MPV (7.40-12.00) fL Neut % (Auto) (48.0-80.0) % Lymph % (Auto) (16.0-40.0) % Wheeler % (Auto) (0.0-15.0) % Eos % (Auto) (0.0-7.0) % Baso % (Auto) (0.0-1.5) % Neut # (Auto) (1.4-5.7) K/uL Lymph # (Auto) (0.6-2.4) K/uL Wheeler # (Auto) (0.0-0.8) K/uL Eos # (Auto) (0.0-0.7) K/uL Baso # (Auto) (0.0-0.1) K/uL Nucleated RBC % /100WBC Nucleated RBCs # K/uL Sodium 136 (136-145) mmol/L Potassium 3.3 L (3.5-5.1) mmol/L Chloride 106 (98-107) mmol/L Carbon Dioxide 17.1 L (21.0-32.0) mmol/L BUN 13 (7.0-18.0) mg/dL Creatinine 0.6 (0.6-1.0) mg/dL Est Cr Clr Drug Dosing 132.02 mL/min Estimated GFR (MDRD) > 60.0 ml/min Glucose 241 H (74-106) mg/dL POC Glucose 232 H 221 H (60-110) mg/dL Calcium 8.4 L (8.5-10.1) mg/dL Javi Results Last 24 Hours: Microbiology 10/20/19 01:45 Aerobic Blood Culture - Preliminary Blood NO GROWTH AFTER 1 DAY Anaerobic Blood Culture - Preliminary NO GROWTH AFTER 1 DAY 10/20/19 01:53 Aerobic Blood Culture - Preliminary Blood NO GROWTH AFTER 1 DAY Anaerobic Blood Culture - Preliminary NO GROWTH AFTER 1 DAY Med Orders - Current: Current Medications Hydrocodone Bitart/Acetaminophen ([place] 325-5 Mg) 1 tab PO Q4H PRN PRN Reason: Pain Last Admin: 10/21/19 08:41 Dose: 1 tab Documented by: Fluoxetine HCl (Prozac) 20 mg PO DAILY [facility] Last Admin: 10/21/19 08:42 Dose: 20 mg Documented by: Hydromorphone HCl (Dilaudid) 0.5 mg IVPUSH Q4H PRN PRN Reason: Pain Lactated Ringer's (Ringers, Lactated) 1,000 mls @ 125 mls/hr IV ASDIRECTED [facility] Last Admin: 10/21/19 07:25 Dose: 125 mls/hr Documented by: Vancomycin HCl 1 gm/ Sodium (Chloride) 250 mls @ 166 mls/hr IV Q12H [facility] Last Admin: 10/21/19 03:54 Dose: 166 mls/hr Documented by: Piperacillin Sod/Tazobactam (Sod 3.375 gm/ Sodium Chloride) 50 mls @ 100 mls/hr IV Q6H [facility] Last Admin: 10/21/19 05:36 Dose: 100 mls/hr Documented by: Ibuprofen (Motrin) 400 mg PO Q6H PRN PRN Reason: Pain Last Admin: 10/20/19 20:39 Dose: 400 mg Documented by: Insulin Aspart (Novolog) 0 unit SUBCUT TIDAC [facility]; Protocol Last Admin: 10/21/19 08:50 Dose: 6 units Documented by: Melatonin (Melatonin) 6 mg PO BEDTIME PRN PRN Reason: Insomnia Last Admin: 10/20/19 22:48 Dose: 6 mg Documented by: Vancomycin HCl (Pharmacy To Dose - Vancomycin) 1 dose .XX ASDIRECTED [facility] Discontinued Medications Acetaminophen (Tylenol) 650 mg PO Q6H PRN PRN Reason: Pain Last Admin: 10/20/19 15:00 Dose: 650 mg Documented by: Fluoxetine HCl (Prozac) 25 mg PO DAILY [facility] Lactated Ringer's (Ringers, Lactated) 1,000 mls @ 999 mls/hr IV .BOLUS ONE Stop: 10/20/19 00:08 Last Admin: 10/19/19 23:29 Dose: 999 mls/hr Documented by: Lactated Ringer's (Ringers, Lactated) 1,000 mls @ 999 mls/hr IV .BOLUS ONE Stop: 10/20/19 01:12 Last Admin: 10/20/19 00:40 Dose: 999 mls/hr Documented by: Piperacillin Sod/Tazobactam (Sod 3.375 gm/ Sodium Chloride) 50 mls @ 100 mls/hr IV ONETIME ONE Stop: 10/20/19 01:57 Last Admin: 10/20/19 03:47 Dose: 100 mls/hr Documented by: Vancomycin HCl 1 gm/ Sodium (Chloride) 250 mls @ 166 mls/hr IV ONETIME ONE Stop: 10/20/19 02:58 Last Admin: 10/20/19 01:44 Dose: 166 mls/hr Documented by: Lactated Ringer's (Ringers, Lactated) 1,000 mls @ 999 mls/hr IV .BOLUS ONE Stop: 10/20/19 02:40 Last Admin: 10/20/19 01:45 Dose: 999 mls/hr Documented by: Insulin Aspart (Novolog) 0 unit SUBCUT TIDAC [facility]; Protocol Last Admin: 10/20/19 07:37 Dose: 6 units Documented by: Insulin Aspart (Novolog) 0 unit SUBCUT Q6H [facility]; Protocol Last Admin: 10/20/19 11:40 Dose: 9 units Documented by: Insulin Detemir (Levemir) 10 unit SUBCUT ONETIME ONE Stop: 10/20/19 19:16 Last Admin: 10/20/19 20:49 Dose: 10 units Documented by: Insulin Human Regular (Novolin R) 8 unit IVPUSH ONETIME ONE; Protocol Stop: 10/20/19 00:14 Last Admin: 10/20/19 00:41 Dose: 8 unit Documented by: Iopamidol (Isovue Multipack-370 (76%)) 75 ml IVPUSH ONETIME STA Stop: 10/20/19 00:39 Last Admin: 10/20/19 00:39 Dose: 75 ml Documented by: Morphine Sulfate (Morphine) 4 mg IVPUSH ONETIME ONE Stop: 10/19/19 23:09 Last Admin: 10/19/19 23:29 Dose: 4 mg Documented by: Morphine Sulfate (Morphine) 4 mg IVPUSH ONETIME ONE Stop: 10/20/19 02:30 Last Admin: 10/20/19 02:37 Dose: 4 mg Documented by: Morphine Sulfate (Morphine) 1 mg IVPUSH Q4H PRN PRN Reason: Chest Pain Last Admin: 10/20/19 07:36 Dose: 1 mg Documented by: Morphine Sulfate (Morphine) 2 mg IVPUSH Q4H PRN PRN Reason: Pain Morphine Sulfate (Morphine) 2 mg IVPUSH Q4H PRN PRN Reason: Pain Last Admin: 10/20/19 15:04 Dose: 2 mg Documented by: Ondansetron HCl (Zofran) 4 mg IVPUSH ONETIME ONE Stop: 10/20/19 02:30 Last Admin: 10/20/19 02:36 Dose: 4 mg Documented by: Potassium Chloride (Klor-Con M20) 40 meq PO ONETIME ONE Stop: 10/21/19 07:31 Last Admin: 10/21/19 08:40 Dose: 40 meq Documented by: Sepsis Event Note - Focused Exam Vital Signs: Vital Signs Temp Pulse Resp BP Pulse Ox 10/21/19 07:00 37.0 C 16 110/63 96 10/21/19 03:24 36.6 C 90 16 99/65 97 10/20/19 22:55 36.6 C 105 H 16 109/69 98 - My Orders Last 24 Hours: My Active Orders 10/20/19 21:36 Melatonin 6 mg PO BEDTIME PRN
[2019-10-21] MEDS: FLUoxetine 20 MG Cap PO SCH (08:42)
--- NOTE | 2019-10-21 08:49 | PCM.CONSN ---
- General Info Date of Service: 10/21/19 Admission Dx/Problem (Free Text): Admission Diagnosis/Problem Admission Diagnosis/Problem Cellulitis Subjective Update: Patient states she is feeling better today. As long as she is not sitting. She denies any pain. There has been some drainage. Overall she feels she is doing better. Functional Status: Reports: Pain Controlled, Tolerating Diet, Ambulating, Urinating. Denies: New Symptoms - Review of Systems General: Denies: Fever, Weakness, Fatigue HEENT: Reports: No Symptoms Pulmonary: Denies: Shortness of Breath, Cough Cardiovascular: Denies: Chest Pain Gastrointestinal: Denies: Abdominal Pain, Constipation, Diarrhea, Nausea, Vomiting Genitourinary: Reports: No Symptoms Musculoskeletal: Reports: No Symptoms Skin: Denies: Cyanosis, Jaundice, Mottled Neurological: Reports: No Symptoms Psychiatric: Reports: No Symptoms - Patient Data Vitals - Most Recent: Last Vital Signs Temp 97.8 F 10/21/19 03:24 Pulse 90 10/21/19 03:24 Resp 16 10/21/19 03:24 BP 99/65 10/21/19 03:24 Pulse Ox 97 10/21/19 03:24 Weight - Most Recent: 157 lb 1.6 oz I&O - Last 24 Hours: Intake & Output 10/20/19 10/21/19 10/21/19 19:59 03:59 11:59 Intake Total 690 2650 1300 Output Total 850 Balance 690 2650 450 Lab Results Last 24 Hours: Laboratory Results - last 24 hr 10/19/19 10/20/19 10/20/19 Range/Units 23:10 11:15 11:15 WBC 13.25 H (4.0-11.0) K/uL RBC 3.61 L (4.30-5.90) M/uL Hgb 10.9 L (12.0-16.0) g/dL Hct 32.5 L (36.0-46.0) % MCV 90.0 (80.0-98.0) fL MCH 30.2 (27.0-32.0) pg MCHC 33.5 (31.0-37.0) g/dL RDW Std Deviation 41.7 (28.0-62.0) fl RDW Coeff of Yuni 13 (11.0-15.0) % Plt Count 381 (150-400) K/uL MPV 9.30 (7.40-12.00) fL Neut % (Auto) 84.4 H (48.0-80.0) % Lymph % (Auto) 9.1 L (16.0-40.0) % Edmunds % (Auto) 5.6 (0.0-15.0) % Eos % (Auto) 0.6 (0.0-7.0) % Baso % (Auto) 0.3 (0.0-1.5) % Neut # (Auto) 11.2 H (1.4-5.7) K/uL Lymph # (Auto) 1.2 (0.6-2.4) K/uL Edmunds # (Auto) 0.7 (0.0-0.8) K/uL Eos # (Auto) 0.1 (0.0-0.7) K/uL Baso # (Auto) 0.0 (0.0-0.1) K/uL Nucleated RBC % 0.0 /100WBC Nucleated RBCs # 0 K/uL Sodium 132 L (136-145) mmol/L Potassium 3.8 (3.5-5.1) mmol/L Chloride 103 (98-107) mmol/L Carbon Dioxide 18.0 L (21.0-32.0) mmol/L BUN 13 (7.0-18.0) mg/dL Creatinine 0.8 (0.6-1.0) mg/dL Est Cr Clr Drug Dosing 99.01 mL/min Estimated GFR (MDRD) > 60.0 ml/min Glucose 329 H (74-106) mg/dL POC Glucose (60-110) mg/dL Hemoglobin A1c 12.8 H (4.5-6.2) % Calcium 8.3 L (8.5-10.1) mg/dL 10/20/19 10/20/19 10/20/19 Range/Units 11:36 17:45 20:48 WBC (4.0-11.0) K/uL RBC (4.30-5.90) M/uL Hgb (12.0-16.0) g/dL Hct (36.0-46.0) % MCV (80.0-98.0) fL MCH (27.0-32.0) pg MCHC (31.0-37.0) g/dL RDW Std Deviation (28.0-62.0) fl RDW Coeff of Yuni (11.0-15.0) % Plt Count (150-400) K/uL MPV (7.40-12.00) fL Neut % (Auto) (48.0-80.0) % Lymph % (Auto) (16.0-40.0) % Edmunds % (Auto) (0.0-15.0) % Eos % (Auto) (0.0-7.0) % Baso % (Auto) (0.0-1.5) % Neut # (Auto) (1.4-5.7) K/uL Lymph # (Auto) (0.6-2.4) K/uL Edmunds # (Auto) (0.0-0.8) K/uL Eos # (Auto) (0.0-0.7) K/uL Baso # (Auto) (0.0-0.1) K/uL Nucleated RBC % /100WBC Nucleated RBCs # K/uL Sodium (136-145) mmol/L Potassium (3.5-5.1) mmol/L Chloride (98-107) mmol/L Carbon Dioxide (21.0-32.0) mmol/L BUN (7.0-18.0) mg/dL Creatinine (0.6-1.0) mg/dL Est Cr Clr Drug Dosing mL/min Estimated GFR (MDRD) ml/min Glucose (74-106) mg/dL POC Glucose 289 H 207 H 202 H (60-110) mg/dL Hemoglobin A1c (4.5-6.2) % Calcium (8.5-10.1) mg/dL 10/21/19 10/21/19 Range/Units 05:08 05:08 WBC 10.41 (4.0-11.0) K/uL RBC 3.28 L (4.30-5.90) M/uL Hgb 9.8 L (12.0-16.0) g/dL Hct 29.4 L (36.0-46.0) % MCV 89.6 (80.0-98.0) fL MCH 29.9 (27.0-32.0) pg MCHC 33.3 (31.0-37.0) g/dL RDW Std Deviation 40.5 (28.0-62.0) fl RDW Coeff of Yuni 12 (11.0-15.0) % Plt Count 393 (150-400) K/uL MPV 9.70 (7.40-12.00) fL Neut % (Auto) 72.9 (48.0-80.0) % Lymph % (Auto) 17.4 (16.0-40.0) % Edmunds % (Auto) 7.7 (0.0-15.0) % Eos % (Auto) 1.6 (0.0-7.0) % Baso % (Auto) 0.4 (0.0-1.5) % Neut # (Auto) 7.6 H (1.4-5.7) K/uL Lymph # (Auto) 1.8 (0.6-2.4) K/uL Edmunds # (Auto) 0.8 (0.0-0.8) K/uL Eos # (Auto) 0.2 (0.0-0.7) K/uL Baso # (Auto) 0.0 (0.0-0.1) K/uL Nucleated RBC % 0.0 /100WBC Nucleated RBCs # 0 K/uL Sodium 136 (136-145) mmol/L Potassium 3.3 L (3.5-5.1) mmol/L Chloride 106 (98-107) mmol/L Carbon Dioxide 17.1 L (21.0-32.0) mmol/L BUN 13 (7.0-18.0) mg/dL Creatinine 0.6 (0.6-1.0) mg/dL Est Cr Clr Drug Dosing 132.02 mL/min Estimated GFR (MDRD) > 60.0 ml/min Glucose 241 H (74-106) mg/dL POC Glucose (60-110) mg/dL Hemoglobin A1c (4.5-6.2) % Calcium 8.4 L (8.5-10.1) mg/dL Javi Results Last 24 Hours: Microbiology 10/20/19 01:45 Aerobic Blood Culture - Preliminary Blood NO GROWTH AFTER 1 DAY Anaerobic Blood Culture - Preliminary NO GROWTH AFTER 1 DAY 10/20/19 01:53 Aerobic Blood Culture - Preliminary Blood NO GROWTH AFTER 1 DAY Anaerobic Blood Culture - Preliminary NO GROWTH AFTER 1 DAY Med Orders - Current: Current Medications Hydrocodone Bitart/Acetaminophen ([place] 325-5 Mg) 1 tab PO Q4H PRN PRN Reason: Pain Last Admin: 10/21/19 08:41 Dose: 1 tab Documented by: Fluoxetine HCl (Prozac) 20 mg PO DAILY [facility] Last Admin: 10/21/19 08:42 Dose: 20 mg Documented by: Lactated Ringer's (Ringers, Lactated) 1,000 mls @ 125 mls/hr IV ASDIRECTED [facility] Last Admin: 10/21/19 07:25 Dose: 125 mls/hr Documented by: Vancomycin HCl 1 gm/ Sodium (Chloride) 250 mls @ 166 mls/hr IV Q12H [facility] Last Admin: 10/21/19 03:54 Dose: 166 mls/hr Documented by: Piperacillin Sod/Tazobactam (Sod 3.375 gm/ Sodium Chloride) 50 mls @ 100 mls/hr IV Q6H [facility] Last Admin: 10/21/19 05:36 Dose: 100 mls/hr Documented by: Ibuprofen (Motrin) 400 mg PO Q6H PRN PRN Reason: Pain Last Admin: 10/20/19 20:39 Dose: 400 mg Documented by: Insulin Aspart (Novolog) 0 unit SUBCUT TIDAC [facility]; Protocol Last Admin: 10/20/19 18:12 Dose: 6 units Documented by: Melatonin (Melatonin) 6 mg PO BEDTIME PRN PRN Reason: Insomnia Last Admin: 10/20/19 22:48 Dose: 6 mg Documented by: Vancomycin HCl (Pharmacy To Dose - Vancomycin) 1 dose .XX ASDIRECTED [facility] Discontinued Medications Acetaminophen (Tylenol) 650 mg PO Q6H PRN PRN Reason: Pain Last Admin: 10/20/19 15:00 Dose: 650 mg Documented by: Fluoxetine HCl (Prozac) 25 mg PO DAILY [facility] Lactated Ringer's (Ringers, Lactated) 1,000 mls @ 999 mls/hr IV .BOLUS ONE Stop: 10/20/19 00:08 Last Admin: 10/19/19 23:29 Dose: 999 mls/hr Documented by: Lactated Ringer's (Ringers, Lactated) 1,000 mls @ 999 mls/hr IV .BOLUS ONE Stop: 10/20/19 01:12 Last Admin: 10/20/19 00:40 Dose: 999 mls/hr Documented by: Piperacillin Sod/Tazobactam (Sod 3.375 gm/ Sodium Chloride) 50 mls @ 100 mls/hr IV ONETIME ONE Stop: 10/20/19 01:57 Last Admin: 10/20/19 03:47 Dose: 100 mls/hr Documented by: Vancomycin HCl 1 gm/ Sodium (Chloride) 250 mls @ 166 mls/hr IV ONETIME ONE Stop: 10/20/19 02:58 Last Admin: 10/20/19 01:44 Dose: 166 mls/hr Documented by: Lactated Ringer's (Ringers, Lactated) 1,000 mls @ 999 mls/hr IV .BOLUS ONE Stop: 10/20/19 02:40 Last Admin: 10/20/19 01:45 Dose: 999 mls/hr Documented by: Insulin Aspart (Novolog) 0 unit SUBCUT TIDAC [facility]; Protocol Last Admin: 10/20/19 07:37 Dose: 6 units Documented by: Insulin Aspart (Novolog) 0 unit SUBCUT Q6H [facility]; Protocol Last Admin: 10/20/19 11:40 Dose: 9 units Documented by: Insulin Detemir (Levemir) 10 unit SUBCUT ONETIME ONE Stop: 10/20/19 19:16 Last Admin: 10/20/19 20:49 Dose: 10 units Documented by: Insulin Human Regular (Novolin R) 8 unit IVPUSH ONETIME ONE; Protocol Stop: 10/20/19 00:14 Last Admin: 10/20/19 00:41 Dose: 8 unit Documented by: Iopamidol (Isovue Multipack-370 (76%)) 75 ml IVPUSH ONETIME STA Stop: 10/20/19 00:39 Last Admin: 10/20/19 00:39 Dose: 75 ml Documented by: Morphine Sulfate (Morphine) 4 mg IVPUSH ONETIME ONE Stop: 10/19/19 23:09 Last Admin: 10/19/19 23:29 Dose: 4 mg Documented by: Morphine Sulfate (Morphine) 4 mg IVPUSH ONETIME ONE Stop: 10/20/19 02:30 Last Admin: 10/20/19 02:37 Dose: 4 mg Documented by: Morphine Sulfate (Morphine) 1 mg IVPUSH Q4H PRN PRN Reason: Chest Pain Last Admin: 10/20/19 07:36 Dose: 1 mg Documented by: Morphine Sulfate (Morphine) 2 mg IVPUSH Q4H PRN PRN Reason: Pain Morphine Sulfate (Morphine) 2 mg IVPUSH Q4H PRN PRN Reason: Pain Last Admin: 10/20/19 15:04 Dose: 2 mg Documented by: Ondansetron HCl (Zofran) 4 mg IVPUSH ONETIME ONE Stop: 10/20/19 02:30 Last Admin: 10/20/19 02:36 Dose: 4 mg Documented by: Potassium Chloride (Klor-Con M20) 40 meq PO ONETIME ONE Stop: 10/21/19 07:31 Last Admin: 10/21/19 08:40 Dose: 40 meq Documented by: - Exam Quality Assessment: DVT Prophylaxis. No: Supplemental Oxygen General: Alert, Oriented, Cooperative, Mild Distress HEENT: Pupils Equal, Pupils Reactive. No: Scleral Icterus Neck: Supple, Trachea Midline Lungs: Clear to Auscultation, Normal Respiratory Effort Cardiovascular: Regular Rate, Regular Rhythm GI/Abdominal Exam: Normal Bowel Sounds, Soft, Non-Tender (Female) Exam: Deferred Back Exam: Other (Perianal cellulitis appears to be resolving, as does the induration. She is still somewhat tender to touch. There has been some spontaneous drainage.) Extremities: Normal Inspection, Normal Range of Motion, Non-Tender. No: Keisha's Sign Skin: Warm, Dry, Intact Wound/Incisions: Drainage, Erythema Improving Neurological: No New Focal Deficit Psy/Mental Status: Alert, Normal Affect, Normal Mood Sepsis Event Note - Evaluation Sepsis Screening Result: No Definite Risk - Focused Exam Vital Signs: Vital Signs Temp Pulse Resp BP Pulse Ox 10/21/19 03:24 97.8 F 90 16 99/65 97 10/20/19 22:55 97.8 F 105 H 16 109/69 98 Consult PN Assessment/Plan (1) Perianal cellulitis SNOMED Code(s): 302025812 Code(s): K61.0 - ANAL ABSCESS Priority: Medium Current Visit: Yes (2) Type 2 diabetes mellitus SNOMED Code(s): 83557140 Code(s): E11.9 - TYPE 2 DIABETES MELLITUS WITHOUT COMPLICATIONS Priority: High Current Visit: Yes Problem List Initiated/Reviewed/Updated: Yes Plan: Overall, patient has showed some improvement overnight. Would continue with the antibiotics and conservative therapy. I note her white count has come down. Her glucose is still not well controlled. I will continue to follow.
[2019-10-21] MEDS: Insulin Aspart 100 Units/ML 3 ML Pen SUBCUT SCH ×3 (08:50→17:15)
[2019-10-21] MEDS: HYDROmorphone 1 MG/ML Syringe IVPUSH PRN ×3 (11:30→21:07)
[2019-10-21] MEDS: Ibuprofen 400 MG Tab PO PRN (17:25)
[2019-10-21] MEDS: Insulin Detemir 100 Units/ML 3 ML Pen SUBCUT SCH (22:08)
[2019-10-21] MEDS: Melatonin 3 MG Tab PO PRN (23:00)
[2019-10-22] MEDS: Acetaminophen/HYDROcodone 325-5 MG Tab PO PRN ×5 (00:37→21:34)
[2019-10-22] MEDS: HYDROmorphone 1 MG/ML Syringe IVPUSH PRN ×6 (02:47→22:47)
[2019-10-22] MEDS: Lactated Ringers 1,000 ML IV SCH ×2 (02:52→14:35)
[2019-10-22] MEDS: Piperacillin/Tazobactam 3.375 GM in Sodium Chloride 0.9% 50 ML IV SCH ×4 (05:10→22:42)
[2019-10-22 05:50] LABS: BLOOD UREA NITROGEN,BUN 11 mg/dL (7.0-18.0); CARBON DIOXIDE,CO2 19.6 mmol/L (21.0-32.0); CHLORIDE,CL 106 mmol/L (98-107); GLUCOSE RANDOM 207 mg/dL (74-106); POTASSIUM,K 3.3 mmol/L (3.5-5.1); SODIUM,NA 137 mmol/L (136-145)
[2019-10-22] MEDS ORDERED: Potassium Chloride 20 MEQ Tab.ER PO ONE (07:30)
[2019-10-22] MEDS: FLUoxetine 20 MG Cap PO SCH (08:57)
[2019-10-22] MEDS: Insulin Aspart 100 Units/ML 3 ML Pen SUBCUT SCH ×3 (08:58→17:22)
--- NOTE | 2019-10-22 09:10 | PCM.PN ---
<[place] - Last Filed: 10/22/19 10:32> - General Info Date of Service: 10/22/19 Subjective Update: Bedside: mentions pain is the same; increased swelling; gaining some relief with sitz baths. States she accidentally sat on it and made the pain worse since. - Review of Systems General: Reports: No Symptoms HEENT: Reports: No Symptoms Pulmonary: Reports: No Symptoms Cardiovascular: Reports: No Symptoms Gastrointestinal: Reports: Other (prei-rectal dicomfort ; passing stool/urine w.o issues ) Musculoskeletal: Reports: No Symptoms Skin: Reports: No Symptoms Neurological: Reports: No Symptoms Psychiatric: Reports: No Symptoms - Patient Data Vitals - Most Recent: Last Vital Signs Temp 98 F 10/22/19 03:33 Pulse 92 10/22/19 03:33 Resp 16 10/22/19 03:33 BP 110/69 10/22/19 03:33 Pulse Ox 95 10/22/19 03:33 Weight - Most Recent: 71.259 kg I&O - Last 24 Hours: Intake & Output 10/21/19 10/22/19 10/22/19 22:59 06:59 14:59 Intake Total 1193 2204 Output Total 800 Balance 1193 1404 Lab Results Last 24 Hours: Laboratory Results - last 24 hr 10/21/19 10/21/19 10/21/19 Range/Units 11:40 13:37 17:12 WBC (4.0-11.0) K/uL RBC (4.30-5.90) M/uL Hgb (12.0-16.0) g/dL Hct (36.0-46.0) % MCV (80.0-98.0) fL MCH (27.0-32.0) pg MCHC (31.0-37.0) g/dL RDW Std Deviation (28.0-62.0) fl RDW Coeff of [place] (11.0-15.0) % Plt Count (150-400) K/uL MPV (7.40-12.00) fL Neut % (Auto) (48.0-80.0) % Lymph % (Auto) (16.0-40.0) % [place] % (Auto) (0.0-15.0) % Eos % (Auto) (0.0-7.0) % Baso % (Auto) (0.0-1.5) % Neut # (Auto) (1.4-5.7) K/uL Lymph # (Auto) (0.6-2.4) K/uL [place] # (Auto) (0.0-0.8) K/uL Eos # (Auto) (0.0-0.7) K/uL Baso # (Auto) (0.0-0.1) K/uL Nucleated RBC % /100WBC Nucleated RBCs # K/uL Sodium (136-145) mmol/L Potassium (3.5-5.1) mmol/L Chloride (98-107) mmol/L Carbon Dioxide (21.0-32.0) mmol/L BUN (7.0-18.0) mg/dL Creatinine (0.6-1.0) mg/dL Est Cr Clr Drug Dosing mL/min Estimated GFR (MDRD) ml/min Glucose (74-106) mg/dL POC Glucose 358 H 295 H 156 H (60-110) mg/dL Calcium (8.5-10.1) mg/dL Vancomycin Trough (5.0-10.0) ug/mL 10/21/19 10/22/19 10/22/19 Range/Units 21:03 02:30 05:12 WBC 9.56 (4.0-11.0) K/uL RBC 3.09 L (4.30-5.90) M/uL Hgb 9.2 L (12.0-16.0) g/dL Hct 27.6 L (36.0-46.0) % MCV 89.3 (80.0-98.0) fL MCH 29.8 (27.0-32.0) pg MCHC 33.3 (31.0-37.0) g/dL RDW Std Deviation 41.0 (28.0-62.0) fl RDW Coeff of [place] 13 (11.0-15.0) % Plt Count 395 (150-400) K/uL MPV 9.40 (7.40-12.00) fL Neut % (Auto) 67.3 (48.0-80.0) % Lymph % (Auto) 21.5 (16.0-40.0) % [place] % (Auto) 9.2 (0.0-15.0) % Eos % (Auto) 1.6 (0.0-7.0) % Baso % (Auto) 0.4 (0.0-1.5) % Neut # (Auto) 6.4 H (1.4-5.7) K/uL Lymph # (Auto) 2.1 (0.6-2.4) K/uL [place] # (Auto) 0.9 H (0.0-0.8) K/uL Eos # (Auto) 0.2 (0.0-0.7) K/uL Baso # (Auto) 0.0 (0.0-0.1) K/uL Nucleated RBC % 0.0 /100WBC Nucleated RBCs # 0 K/uL Sodium (136-145) mmol/L Potassium (3.5-5.1) mmol/L Chloride (98-107) mmol/L Carbon Dioxide (21.0-32.0) mmol/L BUN (7.0-18.0) mg/dL Creatinine (0.6-1.0) mg/dL Est Cr Clr Drug Dosing mL/min Estimated GFR (MDRD) ml/min Glucose (74-106) mg/dL POC Glucose 273 H (60-110) mg/dL Calcium (8.5-10.1) mg/dL Vancomycin Trough 6.2 (5.0-10.0) ug/mL 10/22/19 10/22/19 Range/Units 05:12 06:24 WBC (4.0-11.0) K/uL RBC (4.30-5.90) M/uL Hgb (12.0-16.0) g/dL Hct (36.0-46.0) % MCV (80.0-98.0) fL MCH (27.0-32.0) pg MCHC (31.0-37.0) g/dL RDW Std Deviation (28.0-62.0) fl RDW Coeff of [place] (11.0-15.0) % Plt Count (150-400) K/uL MPV (7.40-12.00) fL Neut % (Auto) (48.0-80.0) % Lymph % (Auto) (16.0-40.0) % [place] % (Auto) (0.0-15.0) % Eos % (Auto) (0.0-7.0) % Baso % (Auto) (0.0-1.5) % Neut # (Auto) (1.4-5.7) K/uL Lymph # (Auto) (0.6-2.4) K/uL [place] # (Auto) (0.0-0.8) K/uL Eos # (Auto) (0.0-0.7) K/uL Baso # (Auto) (0.0-0.1) K/uL Nucleated RBC % /100WBC Nucleated RBCs # K/uL Sodium 137 (136-145) mmol/L Potassium 3.3 L (3.5-5.1) mmol/L Chloride 106 (98-107) mmol/L Carbon Dioxide 19.6 L (21.0-32.0) mmol/L BUN 11 (7.0-18.0) mg/dL Creatinine 0.6 (0.6-1.0) mg/dL Est Cr Clr Drug Dosing 132.02 mL/min Estimated GFR (MDRD) > 60.0 ml/min Glucose 207 H (74-106) mg/dL POC Glucose 192 H (60-110) mg/dL Calcium 8.2 L (8.5-10.1) mg/dL Vancomycin Trough (5.0-10.0) ug/mL Javi Results Last 24 Hours: Microbiology 10/20/19 01:45 Aerobic Blood Culture - Preliminary Blood NO GROWTH AFTER 2 DAYS Anaerobic Blood Culture - Preliminary NO GROWTH AFTER 2 DAYS 10/20/19 01:53 Aerobic Blood Culture - Preliminary Blood NO GROWTH AFTER 2 DAYS Anaerobic Blood Culture - Preliminary NO GROWTH AFTER 2 DAYS 10/21/19 11:09 Stool Occult Blood (JAVI) - Final Stool / Feces NEGATIVE OCCULT BLOOD REFERENCE RANGE: NEGATIVE Med Orders - Current: Current Medications Hydrocodone Bitart/Acetaminophen ([place] 325-5 Mg) 1 tab PO Q4H PRN PRN Reason: Pain Last Admin: 10/22/19 06:21 Dose: 1 tab Documented by: Fluoxetine HCl (Prozac) 20 mg PO DAILY LOU Last Admin: 10/22/19 08:57 Dose: 20 mg Documented by: Hydromorphone HCl (Dilaudid) 0.5 mg IVPUSH Q4H PRN PRN Reason: Pain Last Admin: 10/22/19 08:21 Dose: 0.5 mg Documented by: Lactated Ringer's (Ringers, Lactated) 1,000 mls @ 125 mls/hr IV ASDIRECTED [facility] Last Admin: 10/22/19 02:52 Dose: 125 mls/hr Documented by: Piperacillin Sod/Tazobactam (Sod 3.375 gm/ Sodium Chloride) 50 mls @ 100 mls/hr IV Q6H [facility] Last Admin: 10/22/19 05:10 Dose: 100 mls/hr Documented by: Vancomycin HCl 1.25 gm/ Sodium (Chloride) 250 mls @ 166.667 mls/hr IV Q12H [facility] Last Admin: 10/22/19 03:27 Dose: 166.667 mls/hr Documented by: Ibuprofen (Motrin) 400 mg PO Q6H PRN PRN Reason: Pain Last Admin: 10/21/19 17:25 Dose: 400 mg Documented by: Insulin Aspart (Novolog) 0 unit SUBCUT TIDAC [facility]; Protocol Last Admin: 10/22/19 08:58 Dose: 3 units Documented by: Insulin Detemir (Levemir) 12 unit SUBCUT BEDTIME [facility] Last Admin: 10/21/19 22:08 Dose: 12 units Documented by: Melatonin (Melatonin) 6 mg PO BEDTIME PRN PRN Reason: Insomnia Last Admin: 10/21/19 23:00 Dose: 6 mg Documented by: Vancomycin HCl (Pharmacy To Dose - Vancomycin) 1 dose .XX ASDIRECTED [facility] Discontinued Medications Acetaminophen (Tylenol) 650 mg PO Q6H PRN PRN Reason: Pain Last Admin: 10/20/19 15:00 Dose: 650 mg Documented by: Fluoxetine HCl (Prozac) 25 mg PO DAILY [facility] Lactated Ringer's (Ringers, Lactated) 1,000 mls @ 999 mls/hr IV .BOLUS ONE Stop: 10/20/19 00:08 Last Admin: 10/19/19 23:29 Dose: 999 mls/hr Documented by: Lactated Ringer's (Ringers, Lactated) 1,000 mls @ 999 mls/hr IV .BOLUS ONE Stop: 10/20/19 01:12 Last Admin: 10/20/19 00:40 Dose: 999 mls/hr Documented by: Piperacillin Sod/Tazobactam (Sod 3.375 gm/ Sodium Chloride) 50 mls @ 100 mls/hr IV ONETIME ONE Stop: 10/20/19 01:57 Last Admin: 10/20/19 03:47 Dose: 100 mls/hr Documented by: Vancomycin HCl 1 gm/ Sodium (Chloride) 250 mls @ 166 mls/hr IV ONETIME ONE Stop: 10/20/19 02:58 Last Admin: 10/20/19 01:44 Dose: 166 mls/hr Documented by: Lactated Ringer's (Ringers, Lactated) 1,000 mls @ 999 mls/hr IV .BOLUS ONE Stop: 10/20/19 02:40 Last Admin: 10/20/19 01:45 Dose: 999 mls/hr Documented by: Vancomycin HCl 1 gm/ Sodium (Chloride) 250 mls @ 166 mls/hr IV Q12H [facility] Last Admin: 10/21/19 14:53 Dose: 166 mls/hr Documented by: Insulin Aspart (Novolog) 0 unit SUBCUT TIDAC [facility]; Protocol Last Admin: 10/20/19 07:37 Dose: 6 units Documented by: Insulin Aspart (Novolog) 0 unit SUBCUT Q6H [facility]; Protocol Last Admin: 10/20/19 11:40 Dose: 9 units Documented by: Insulin Detemir (Levemir) 10 unit SUBCUT ONETIME ONE Stop: 10/20/19 19:16 Last Admin: 10/20/19 20:49 Dose: 10 units Documented by: Insulin Detemir (Levemir) 12 unit SUBCUT BEDTIME [facility] Last Admin: 10/21/19 22:16 Dose: Not Given Documented by: Insulin Human Regular (Novolin R) 8 unit IVPUSH ONETIME ONE; Protocol Stop: 10/20/19 00:14 Last Admin: 10/20/19 00:41 Dose: 8 unit Documented by: Iopamidol (Isovue Multipack-370 (76%)) 75 ml IVPUSH ONETIME STA Stop: 10/20/19 00:39 Last Admin: 10/20/19 00:39 Dose: 75 ml Documented by: Morphine Sulfate (Morphine) 4 mg IVPUSH ONETIME ONE Stop: 10/19/19 23:09 Last Admin: 10/19/19 23:29 Dose: 4 mg Documented by: Morphine Sulfate (Morphine) 4 mg IVPUSH ONETIME ONE Stop: 10/20/19 02:30 Last Admin: 10/20/19 02:37 Dose: 4 mg Documented by: Morphine Sulfate (Morphine) 1 mg IVPUSH Q4H PRN PRN Reason: Chest Pain Last Admin: 10/20/19 07:36 Dose: 1 mg Documented by: Morphine Sulfate (Morphine) 2 mg IVPUSH Q4H PRN PRN Reason: Pain Morphine Sulfate (Morphine) 2 mg IVPUSH Q4H PRN PRN Reason: Pain Last Admin: 10/20/19 15:04 Dose: 2 mg Documented by: Ondansetron HCl (Zofran) 4 mg IVPUSH ONETIME ONE Stop: 10/20/19 02:30 Last Admin: 10/20/19 02:36 Dose: 4 mg Documented by: Potassium Chloride (Klor-Con M20) 40 meq PO ONETIME ONE Stop: 10/21/19 07:31 Last Admin: 10/21/19 08:40 Dose: 40 meq Documented by: Potassium Chloride (Klor-Con M20) 40 meq PO ONETIME ONE Stop: 10/22/19 07:31 Last Admin: 10/22/19 08:21 Dose: 40 meq Documented by: - Exam Quality Assessment: No: Supplemental Oxygen General: Alert, Oriented Neck: Supple Lungs: Clear to Auscultation, Normal Respiratory Effort Cardiovascular: Regular Rate, Regular Rhythm GI/Abdominal Exam: Soft, Other (margot-rectal swelling unchanged from yesterday examination ; opening not draining as much as yesterday ; exquisetly tender at 2-3 o'clock poisition with increasing firmness compared to admission date ...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 ) Neurological: No New Focal Deficit Psy/Mental Status: Alert Sepsis Event Note - Evaluation Sepsis Screening Result: No Definite Risk - Focused Exam Vital Signs: Vital Signs Temp Pulse Resp BP Pulse Ox 10/22/19 03:33 98 F 92 16 110/69 95 10/22/19 00:00 98.2 F 92 15 107/66 95 - Problem List Review Problem List Initiated/Reviewed/Updated: Yes - My Orders Last 24 Hours: My Active Orders 10/21/19 21:32 Insulin Detemir [Levemir] 12 unit SUBCUT BEDTIME 10/23/19 05:11 BMP [BASIC METABOLIC PANEL,BMP] [CHEM] AM CBC WITH AUTO DIFF [HEME] AM 10/24/19 05:11 BMP [BASIC METABOLIC PANEL,BMP] [CHEM] AM CBC WITH AUTO DIFF [HEME] AM - Plan Plan:: Assessment: 1. Margot-rectal cellulitis w. concerns for early abscess vs phlegmon formation 2. Elevated BG in a type II DM 3. Mild leukocytosis:resolved 4. Pseudohyponatremia:resolved 5. Hypokalemia Plan Admit to observation. Full code. i/O;s per routine. GI:pantoprazole 40 DVT: SCD (if surgery required) NPO: until evaluated by surgery 1. Cellulitis: Bcx ordered, afebrile; continue on Vancomycin and Zosyn General surgery recommends IV abx + sitz bath with daily monitoring: we appreciate Dr Chase's expertise and help with this case; will touch base with surgery once CT results return today increasing hardness in area of cellulitis after sitting on it :repeat CT abdomen pelvis w. contrast to recheck for any new abscess formation (will provide 1 L NS bolus to avoid contrast nephropathy) Denies any constipation/anal intercourse and or trauma Denies any overt pain on defecation; just pressure sensation Mentions some drainage on BM Dilaudid for pain control +[place] + ibuprofen 2. DM w. elevated BG: hold PO meds including glyburide and metformin: sliding scale initiated +Levemir Q nightly: increased to 12 ; will consider 14 tonight based off AM/PM glucose trends A1c elevated at 12 DM educator recommendations discussed and agreed with; will set up outpatient PCP referral for follow up and DM control history of DKA 4 years prior; never on insulin provided Levemir 12 units last night to evaluate for response and tolerability Discussed diet + medication regimen; will reassess based off of insurance/tolerability Hypokalemia: provided with 40 PO mEq of Potassium Chloride in AM ; recheck BMP tomorrow AM <Elias Robb - Last Filed: 10/29/19 13:01> - General Info Subjective Update: I have seen and evaluated the patient and agree with the residents note unless specified in my note - Patient Data Vitals - Most Recent: Last Vital Signs Temp 36.3 C 10/24/19 12:22 Pulse 86 10/24/19 12:22 Resp 14 10/24/19 12:22 BP 104/65 10/24/19 12:22 Pulse Ox 95 10/24/19 12:22 Med Orders - Current: Current Medications Discontinued Medications Acetaminophen (Tylenol) 650 mg PO Q6H PRN PRN Reason: Pain Last Admin: 10/20/19 15:00 Dose: 650 mg Documented by: Hydrocodone Bitart/Acetaminophen ([place] 325-5 Mg) 1 tab PO Q4H PRN PRN Reason: Pain Last Admin: 10/23/19 03:47 Dose: 1 tab Documented by: Hydrocodone Bitart/Acetaminophen ([place] 325-10 Mg) 2 tab PO Q4H PRN PRN Reason: Pain Last Admin: 10/24/19 17:04 Dose: 2 tab Documented by: Bupivacaine HCl (Sensorcaine-Mpf 0.5%) Confirm Administered Dose 10 ml .ROUTE .STK-MED ONE Stop: 10/23/19 07:11 Fentanyl (Sublimaze) Confirm Administered Dose 100 mcg .ROUTE .STK-MED ONE Stop: 10/23/19 08:02 Fentanyl (Sublimaze) Confirm Administered Dose 100 mcg .ROUTE .STK-MED ONE Stop: 10/23/19 08:07 Fluoxetine HCl (Prozac) 25 mg PO DAILY LOU Fluoxetine HCl (Prozac) 20 mg PO DAILY LOU Last Admin: 10/24/19 08:20 Dose: 20 mg Documented by: Hydromorphone HCl (Dilaudid) 0.5 mg IVPUSH Q4H PRN PRN Reason: Pain Last Admin: 10/22/19 12:33 Dose: 0.5 mg Documented by: Hydromorphone HCl (Dilaudid) 1 mg IVPUSH Q4H PRN PRN Reason: Pain Hydromorphone HCl (Dilaudid) 1 mg IVPUSH Q3H PRN PRN Reason: Pain Last Admin: 10/23/19 06:06 Dose: 1 mg Documented by: Hydromorphone HCl (Dilaudid) Confirm Administered Dose 2 mg .ROUTE .STK-MED ONE Stop: 10/23/19 08:03 Hydromorphone HCl (Dilaudid) 1 mg IV ONETIME ONE Stop: 10/23/19 09:18 Last Admin: 10/23/19 09:20 Dose: 1 mg Documented by: Hydromorphone HCl (Dilaudid) Confirm Administered Dose 2 mg .ROUTE .STK-MED ONE Stop: 10/23/19 09:19 Last Admin: 10/23/19 10:32 Dose: Not Given Documented by: Hydromorphone HCl (Dilaudid) 0.5 mg IVPUSH Q1H PRN PRN Reason: Pain Last Admin: 10/24/19 10:39 Dose: 0.5 mg Documented by: Hydromorphone HCl (Dilaudid) Confirm Administered Dose 2 mg .ROUTE .STK-MED ONE Stop: 10/23/19 10:20 Last Admin: 10/23/19 09:20 Dose: Not Given Documented by: Hydromorphone HCl (Dilaudid) 0.5 mg IVPUSH Q4H PRN PRN Reason: Pain Lactated Ringer's (Ringers, Lactated) 1,000 mls @ 999 mls/hr IV .BOLUS ONE Stop: 10/20/19 00:08 Last Admin: 10/19/19 23:29 Dose: 999 mls/hr Documented by: Lactated Ringer's (Ringers, Lactated) 1,000 mls @ 999 mls/hr IV .BOLUS ONE Stop: 10/20/19 01:12 Last Admin: 10/20/19 00:40 Dose: 999 mls/hr Documented by: Piperacillin Sod/Tazobactam (Sod 3.375 gm/ Sodium Chloride) 50 mls @ 100 mls/hr IV ONETIME ONE Stop: 10/20/19 01:57 Last Admin: 10/20/19 03:47 Dose: 100 mls/hr Documented by: Vancomycin HCl 1 gm/ Sodium (Chloride) 250 mls @ 166 mls/hr IV ONETIME ONE Stop: 10/20/19 02:58 Last Admin: 10/20/19 01:44 Dose: 166 mls/hr Documented by: Lactated Ringer's (Ringers, Lactated) 1,000 mls @ 999 mls/hr IV .BOLUS ONE Stop: 10/20/19 02:40 Last Admin: 10/20/19 01:45 Dose: 999 mls/hr Documented by: Lactated Ringer's (Ringers, Lactated) 1,000 mls @ 125 mls/hr IV ASDIRECTED [facility] Last Admin: 10/23/19 03:44 Dose: 125 mls/hr Documented by: Vancomycin HCl 1 gm/ Sodium (Chloride) 250 mls @ 166 mls/hr IV Q12H [facility] Last Admin: 10/21/19 14:53 Dose: 166 mls/hr Documented by: Piperacillin Sod/Tazobactam (Sod 3.375 gm/ Sodium Chloride) 50 mls @ 100 mls/hr IV Q6H [facility] Last Admin: 10/24/19 13:20 Dose: 100 mls/hr Documented by: Vancomycin HCl 1.25 gm/ Sodium (Chloride) 250 mls @ 166.667 mls/hr IV Q12H [facility] Last Admin: 10/23/19 19:16 Dose: Not Given Documented by: Sodium Chloride (Normal Saline) 1,000 mls @ 999 mls/hr IV .Bolus ONE Stop: 10/22/19 10:56 Last Admin: 10/22/19 10:37 Dose: 999 mls/hr Documented by: Vancomycin HCl 1.25 gm/ Sodium (Chloride) 250 mls @ 166.667 mls/hr IV Q8H [facility] Last Admin: 10/24/19 16:26 Dose: Not Given Documented by: Vancomycin HCl 1 gm/ Sodium (Chloride) 250 mls @ 166 mls/hr IV Q8H [facility] Ibuprofen (Motrin) 400 mg PO Q6H PRN PRN Reason: Pain Last Admin: 10/23/19 16:41 Dose: 400 mg Documented by: Insulin Aspart (Novolog) 0 unit SUBCUT TIDAC [facility]; Protocol Last Admin: 10/20/19 07:37 Dose: 6 units Documented by: Insulin Aspart (Novolog) 0 unit SUBCUT Q6H [facility]; Protocol Last Admin: 10/20/19 11:40 Dose: 9 units Documented by: Insulin Aspart (Novolog) 0 unit SUBCUT TIDAC [facility]; Protocol Last Admin: 10/24/19 12:22 Dose: Not Given Documented by: Insulin Detemir (Levemir) 10 unit SUBCUT ONETIME ONE Stop: 10/20/19 19:16 Last Admin: 10/20/19 20:49 Dose: 10 units Documented by: Insulin Detemir (Levemir) 12 unit SUBCUT BEDTIME [facility] Last Admin: 10/21/19 22:16 Dose: Not Given Documented by: Insulin Detemir (Levemir) 12 unit SUBCUT BEDTIME LOU Last Admin: 10/22/19 21:35 Dose: 12 units Documented by: Insulin Detemir (Levemir) 14 unit SUBCUT BEDTIME [facility] Last Admin: 10/23/19 22:11 Dose: 14 units Documented by: Insulin Human Regular (Novolin R) 8 unit IVPUSH ONETIME ONE; Protocol Stop: 10/20/19 00:14 Last Admin: 10/20/19 00:41 Dose: 8 unit Documented by: Iopamidol (Isovue Multipack-370 (76%)) 75 ml IVPUSH ONETIME STA Stop: 10/20/19 00:39 Last Admin: 10/20/19 00:39 Dose: 75 ml Documented by: Iopamidol (Isovue Multipack-370 (76%)) 100 ml IVPUSH ONETIME ONE Stop: 10/22/19 12:24 Last Admin: 10/22/19 12:26 Dose: 100 ml Documented by: Ketorolac Tromethamine (Toradol) 15 mg IVPUSH ONETIME ONE Stop: 10/23/19 09:23 Last Admin: 10/23/19 09:25 Dose: 15 mg Documented by: Lidocaine (Xylocaine-Mpf 2%) Confirm Administered Dose 5 ml .ROUTE .STK-MED ONE Stop: 10/23/19 08:07 Melatonin (Melatonin) 6 mg PO BEDTIME PRN PRN Reason: Insomnia Last Admin: 10/23/19 22:12 Dose: 6 mg Documented by: Midazolam HCl (Versed 1 Mg/Ml) Confirm Administered Dose 2 mg .ROUTE .STK-MED ON E Stop: 10/23/19 08:03 Morphine Sulfate (Morphine) 4 mg IVPUSH ONETIME ONE Stop: 10/19/19 23:09 Last Admin: 10/19/19 23:29 Dose: 4 mg Documented by: Morphine Sulfate (Morphine) 4 mg IVPUSH ONETIME ONE Stop: 10/20/19 02:30 Last Admin: 10/20/19 02:37 Dose: 4 mg Documented by: Morphine Sulfate (Morphine) 1 mg IVPUSH Q4H PRN PRN Reason: Chest Pain Last Admin: 10/20/19 07:36 Dose: 1 mg Documented by: Morphine Sulfate (Morphine) 2 mg IVPUSH Q4H PRN PRN Reason: Pain Morphine Sulfate (Morphine) 2 mg IVPUSH Q4H PRN PRN Reason: Pain Last Admin: 10/20/19 15:04 Dose: 2 mg Documented by: Ondansetron HCl (Zofran) 4 mg IVPUSH ONETIME ONE Stop: 10/20/19 02:30 Last Admin: 10/20/19 02:36 Dose: 4 mg Documented by: Ondansetron HCl (Zofran) Confirm Administered Dose 4 mg .ROUTE .STK-MED ONE Stop: 10/23/19 08:02 Ondansetron HCl (Zofran) 4 mg IVPUSH Q6H PRN PRN Reason: Nausea/Vomiting Last Admin: 10/24/19 04:06 Dose: 4 mg Documented by: Ondansetron HCl (Zofran) 4 mg IVPUSH Q4H PRN PRN Reason: Nausea Last Admin: 10/24/19 12:20 Dose: 4 mg Documented by: Oxycodone HCl (Oxycodone) 5 mg PO Q4H PRN PRN Reason: Pain Last Admin: 10/24/19 14:26 Dose: 5 mg Documented by: Potassium Chloride (Klor-Con M20) 40 meq PO ONETIME ONE Stop: 10/21/19 07:31 Last Admin: 10/21/19 08:40 Dose: 40 meq Documented by: Potassium Chloride (Klor-Con M20) 40 meq PO ONETIME ONE Stop: 10/22/19 07:31 Last Admin: 10/22/19 08:21 Dose: 40 meq Documented by: Potassium Chloride (Klor-Con M20) 40 meq PO DAILY [facility] Last Admin: 10/24/19 08:19 Dose: 40 meq Documented by: Propofol (Diprivan 20 Ml) Confirm Administered Dose 200 mg .ROUTE .STK-MED ONE Stop: 10/23/19 08:02 Vancomycin HCl (Pharmacy To Dose - Vancomycin) 1 dose .XX ASDIRECTED [facility]
[2019-10-22] MEDS ORDERED: Sodium Chloride 0.9% 1,000 ML IV ONE (09:56)
--- NOTE | 2019-10-22 12:22 | PCM.CONSN ---
- General Info Date of Service: 10/22/19 Admission Dx/Problem (Free Text): Admission Diagnosis/Problem Admission Diagnosis/Problem Cellulitis Subjective Update: Patient is having more perineal pain today. No further spontaneous drainage. No new development of fevers. I do know her white count is gradually returning to normal. Pain is not well controlled. Functional Status: Reports: Tolerating Diet, Ambulating - Review of Systems General: Denies: Fever, Weakness, Fatigue, Malaise, Chills, Night Sweats HEENT: Reports: No Symptoms Pulmonary: Denies: Shortness of Breath, Cough Cardiovascular: Denies: Chest Pain Gastrointestinal: Denies: Abdominal Pain, Constipation, Decreased Appetite, Diarrhea, Nausea, Vomiting Genitourinary: Reports: No Symptoms Musculoskeletal: Reports: No Symptoms Skin: Reports: Other (Right buttock pain) Neurological: Reports: No Symptoms Psychiatric: Reports: No Symptoms - Patient Data Vitals - Most Recent: Last Vital Signs Temp 97.7 F 10/22/19 11:11 Pulse 94 10/22/19 11:11 Resp 17 10/22/19 11:11 BP 105/68 10/22/19 11:11 Pulse Ox 98 10/22/19 11:11 Weight - Most Recent: 157 lb 1.6 oz I&O - Last 24 Hours: Intake & Output 10/22/19 10/22/19 10/22/19 03:59 11:59 19:59 Intake Total 2204 Output Total 800 Balance 1404 Lab Results Last 24 Hours: Laboratory Results - last 24 hr 10/21/19 10/21/19 10/21/19 Range/Units 13:37 17:12 21:03 WBC (4.0-11.0) K/uL RBC (4.30-5.90) M/uL Hgb (12.0-16.0) g/dL Hct (36.0-46.0) % MCV (80.0-98.0) fL MCH (27.0-32.0) pg MCHC (31.0-37.0) g/dL RDW Std Deviation (28.0-62.0) fl RDW Coeff of [place] (11.0-15.0) % Plt Count (150-400) K/uL MPV (7.40-12.00) fL Neut % (Auto) (48.0-80.0) % Lymph % (Auto) (16.0-40.0) % [place] % (Auto) (0.0-15.0) % Eos % (Auto) (0.0-7.0) % Baso % (Auto) (0.0-1.5) % Neut # (Auto) (1.4-5.7) K/uL Lymph # (Auto) (0.6-2.4) K/uL [place] # (Auto) (0.0-0.8) K/uL Eos # (Auto) (0.0-0.7) K/uL Baso # (Auto) (0.0-0.1) K/uL Nucleated RBC % /100WBC Nucleated RBCs # K/uL Sodium (136-145) mmol/L Potassium (3.5-5.1) mmol/L Chloride (98-107) mmol/L Carbon Dioxide (21.0-32.0) mmol/L BUN (7.0-18.0) mg/dL Creatinine (0.6-1.0) mg/dL Est Cr Clr Drug Dosing mL/min Estimated GFR (MDRD) ml/min Glucose (74-106) mg/dL POC Glucose 295 H 156 H 273 H (60-110) mg/dL Calcium (8.5-10.1) mg/dL Vancomycin Trough (5.0-10.0) ug/mL 10/22/19 10/22/19 10/22/19 Range/Units 02:30 05:12 05:12 WBC 9.56 (4.0-11.0) K/uL RBC 3.09 L (4.30-5.90) M/uL Hgb 9.2 L (12.0-16.0) g/dL Hct 27.6 L (36.0-46.0) % MCV 89.3 (80.0-98.0) fL MCH 29.8 (27.0-32.0) pg MCHC 33.3 (31.0-37.0) g/dL RDW Std Deviation 41.0 (28.0-62.0) fl RDW Coeff of [place] 13 (11.0-15.0) % Plt Count 395 (150-400) K/uL MPV 9.40 (7.40-12.00) fL Neut % (Auto) 67.3 (48.0-80.0) % Lymph % (Auto) 21.5 (16.0-40.0) % [place] % (Auto) 9.2 (0.0-15.0) % Eos % (Auto) 1.6 (0.0-7.0) % Baso % (Auto) 0.4 (0.0-1.5) % Neut # (Auto) 6.4 H (1.4-5.7) K/uL Lymph # (Auto) 2.1 (0.6-2.4) K/uL [place] # (Auto) 0.9 H (0.0-0.8) K/uL Eos # (Auto) 0.2 (0.0-0.7) K/uL Baso # (Auto) 0.0 (0.0-0.1) K/uL Nucleated RBC % 0.0 /100WBC Nucleated RBCs # 0 K/uL Sodium 137 (136-145) mmol/L Potassium 3.3 L (3.5-5.1) mmol/L Chloride 106 (98-107) mmol/L Carbon Dioxide 19.6 L (21.0-32.0) mmol/L BUN 11 (7.0-18.0) mg/dL Creatinine 0.6 (0.6-1.0) mg/dL Est Cr Clr Drug Dosing 132.02 mL/min Estimated GFR (MDRD) > 60.0 ml/min Glucose 207 H (74-106) mg/dL POC Glucose (60-110) mg/dL Calcium 8.2 L (8.5-10.1) mg/dL Vancomycin Trough 6.2 (5.0-10.0) ug/mL 10/22/19 10/22/19 Range/Units 06:24 11:29 WBC (4.0-11.0) K/uL RBC (4.30-5.90) M/uL Hgb (12.0-16.0) g/dL Hct (36.0-46.0) % MCV (80.0-98.0) fL MCH (27.0-32.0) pg MCHC (31.0-37.0) g/dL RDW Std Deviation (28.0-62.0) fl RDW Coeff of [place] (11.0-15.0) % Plt Count (150-400) K/uL MPV (7.40-12.00) fL Neut % (Auto) (48.0-80.0) % Lymph % (Auto) (16.0-40.0) % [place] % (Auto) (0.0-15.0) % Eos % (Auto) (0.0-7.0) % Baso % (Auto) (0.0-1.5) % Neut # (Auto) (1.4-5.7) K/uL Lymph # (Auto) (0.6-2.4) K/uL [place] # (Auto) (0.0-0.8) K/uL Eos # (Auto) (0.0-0.7) K/uL Baso # (Auto) (0.0-0.1) K/uL Nucleated RBC % /100WBC Nucleated RBCs # K/uL Sodium (136-145) mmol/L Potassium (3.5-5.1) mmol/L Chloride (98-107) mmol/L Carbon Dioxide (21.0-32.0) mmol/L BUN (7.0-18.0) mg/dL Creatinine (0.6-1.0) mg/dL Est Cr Clr Drug Dosing mL/min Estimated GFR (MDRD) ml/min Glucose (74-106) mg/dL POC Glucose 192 H 347 H (60-110) mg/dL Calcium (8.5-10.1) mg/dL Vancomycin Trough (5.0-10.0) ug/mL Javi Results Last 24 Hours: Microbiology 10/20/19 01:45 Aerobic Blood Culture - Preliminary Blood NO GROWTH AFTER 2 DAYS Anaerobic Blood Culture - Preliminary NO GROWTH AFTER 2 DAYS 10/20/19 01:53 Aerobic Blood Culture - Preliminary Blood NO GROWTH AFTER 2 DAYS Anaerobic Blood Culture - Preliminary NO GROWTH AFTER 2 DAYS 10/21/19 11:09 Stool Occult Blood (JAVI) - Final Stool / Feces NEGATIVE OCCULT BLOOD REFERENCE RANGE: NEGATIVE Med Orders - Current: Current Medications Hydrocodone Bitart/Acetaminophen ([place] 325-5 Mg) 1 tab PO Q4H PRN PRN Reason: Pain Last Admin: 10/22/19 10:37 Dose: 1 tab Documented by: Fluoxetine HCl (Prozac) 20 mg PO DAILY LOU Last Admin: 10/22/19 08:57 Dose: 20 mg Documented by: Hydromorphone HCl (Dilaudid) 0.5 mg IVPUSH Q4H PRN PRN Reason: Pain Last Admin: 10/22/19 08:21 Dose: 0.5 mg Documented by: Lactated Ringer's (Ringers, Lactated) 1,000 mls @ 125 mls/hr IV ASDIRECTED [facility] Last Admin: 10/22/19 02:52 Dose: 125 mls/hr Documented by: Piperacillin Sod/Tazobactam (Sod 3.375 gm/ Sodium Chloride) 50 mls @ 100 mls/hr IV Q6H [facility] Last Admin: 10/22/19 05:10 Dose: 100 mls/hr Documented by: Vancomycin HCl 1.25 gm/ Sodium (Chloride) 250 mls @ 166.667 mls/hr IV Q12H [facility] Last Admin: 10/22/19 03:27 Dose: 166.667 mls/hr Documented by: Ibuprofen (Motrin) 400 mg PO Q6H PRN PRN Reason: Pain Last Admin: 10/21/19 17:25 Dose: 400 mg Documented by: Insulin Aspart (Novolog) 0 unit SUBCUT TIDAC [facility]; Protocol Last Admin: 10/22/19 08:58 Dose: 3 units Documented by: Insulin Detemir (Levemir) 12 unit SUBCUT BEDTIME [facility] Last Admin: 10/21/19 22:08 Dose: 12 units Documented by: Melatonin (Melatonin) 6 mg PO BEDTIME PRN PRN Reason: Insomnia Last Admin: 10/21/19 23:00 Dose: 6 mg Documented by: Vancomycin HCl (Pharmacy To Dose - Vancomycin) 1 dose .XX ASDIRECTED [facility] Discontinued Medications Acetaminophen (Tylenol) 650 mg PO Q6H PRN PRN Reason: Pain Last Admin: 10/20/19 15:00 Dose: 650 mg Documented by: Fluoxetine HCl (Prozac) 25 mg PO DAILY [facility] Lactated Ringer's (Ringers, Lactated) 1,000 mls @ 999 mls/hr IV .BOLUS ONE Stop: 10/20/19 00:08 Last Admin: 10/19/19 23:29 Dose: 999 mls/hr Documented by: Lactated Ringer's (Ringers, Lactated) 1,000 mls @ 999 mls/hr IV .BOLUS ONE Stop: 10/20/19 01:12 Last Admin: 10/20/19 00:40 Dose: 999 mls/hr Documented by: Piperacillin Sod/Tazobactam (Sod 3.375 gm/ Sodium Chloride) 50 mls @ 100 mls/hr IV ONETIME ONE Stop: 10/20/19 01:57 Last Admin: 10/20/19 03:47 Dose: 100 mls/hr Documented by: Vancomycin HCl 1 gm/ Sodium (Chloride) 250 mls @ 166 mls/hr IV ONETIME ONE Stop: 10/20/19 02:58 Last Admin: 10/20/19 01:44 Dose: 166 mls/hr Documented by: Lactated Ringer's (Ringers, Lactated) 1,000 mls @ 999 mls/hr IV .BOLUS ONE Stop: 10/20/19 02:40 Last Admin: 10/20/19 01:45 Dose: 999 mls/hr Documented by: Vancomycin HCl 1 gm/ Sodium (Chloride) 250 mls @ 166 mls/hr IV Q12H [facility] Last Admin: 10/21/19 14:53 Dose: 166 mls/hr Documented by: Sodium Chloride (Normal Saline) 1,000 mls @ 999 mls/hr IV .Bolus ONE Stop: 10/22/19 10:56 Last Admin: 10/22/19 10:37 Dose: 999 mls/hr Documented by: Insulin Aspart (Novolog) 0 unit SUBCUT TIDAC [facility]; Protocol Last Admin: 10/20/19 07:37 Dose: 6 units Documented by: Insulin Aspart (Novolog) 0 unit SUBCUT Q6H [facility]; Protocol Last Admin: 10/20/19 11:40 Dose: 9 units Documented by: Insulin Detemir (Levemir) 10 unit SUBCUT ONETIME ONE Stop: 10/20/19 19:16 Last Admin: 10/20/19 20:49 Dose: 10 units Documented by: Insulin Detemir (Levemir) 12 unit SUBCUT BEDTIME [facility] Last Admin: 10/21/19 22:16 Dose: Not Given Documented by: Insulin Human Regular (Novolin R) 8 unit IVPUSH ONETIME ONE; Protocol Stop: 10/20/19 00:14 Last Admin: 10/20/19 00:41 Dose: 8 unit Documented by: Iopamidol (Isovue Multipack-370 (76%)) 75 ml IVPUSH ONETIME STA Stop: 10/20/19 00:39 Last Admin: 10/20/19 00:39 Dose: 75 ml Documented by: Morphine Sulfate (Morphine) 4 mg IVPUSH ONETIME ONE Stop: 10/19/19 23:09 Last Admin: 10/19/19 23:29 Dose: 4 mg Documented by: Morphine Sulfate (Morphine) 4 mg IVPUSH ONETIME ONE Stop: 10/20/19 02:30 Last Admin: 10/20/19 02:37 Dose: 4 mg Documented by: Morphine Sulfate (Morphine) 1 mg IVPUSH Q4H PRN PRN Reason: Chest Pain Last Admin: 10/20/19 07:36 Dose: 1 mg Documented by: Morphine Sulfate (Morphine) 2 mg IVPUSH Q4H PRN PRN Reason: Pain Morphine Sulfate (Morphine) 2 mg IVPUSH Q4H PRN PRN Reason: Pain Last Admin: 10/20/19 15:04 Dose: 2 mg Documented by: Ondansetron HCl (Zofran) 4 mg IVPUSH ONETIME ONE Stop: 10/20/19 02:30 Last Admin: 10/20/19 02:36 Dose: 4 mg Documented by: Potassium Chloride (Klor-Con M20) 40 meq PO ONETIME ONE Stop: 10/21/19 07:31 Last Admin: 10/21/19 08:40 Dose: 40 meq Documented by: Potassium Chloride (Klor-Con M20) 40 meq PO ONETIME ONE Stop: 10/22/19 07:31 Last Admin: 10/22/19 08:21 Dose: 40 meq Documented by: - Exam Quality Assessment: DVT Prophylaxis. No: Supplemental Oxygen, Central Line/PICC General: Alert, Oriented, Cooperative, Moderate Distress HEENT: Pupils Equal, Pupils Reactive. No: Scleral Icterus Neck: Supple Lungs: Clear to Auscultation, Normal Respiratory Effort Cardiovascular: Regular Rate, Regular Rhythm GI/Abdominal Exam: Soft, Non-Tender (Female) Exam: Other (Patient now has developed what appears to be an area of fluctuance on that right cheek. This is more than the cellulitis that we have been observing.) Back Exam: Normal Inspection Extremities: Normal Inspection, Normal Capillary Refill Skin: Warm, Dry, Intact Neurological: No New Focal Deficit Psy/Mental Status: Alert, Normal Affect, Normal Mood Sepsis Event Note - Evaluation Sepsis Screening Result: No Definite Risk - Focused Exam Vital Signs: Vital Signs Temp Pulse Resp BP Pulse Ox 10/22/19 11:11 97.7 F 94 17 105/68 98 10/22/19 07:00 97.4 F 87 17 109/78 95 10/22/19 03:33 98 F 92 16 110/69 95 Consult PN Assessment/Plan (1) Perianal cellulitis SNOMED Code(s): 981951981 Code(s): K61.0 - ANAL ABSCESS Priority: Medium Current Visit: Yes (2) Type 2 diabetes mellitus SNOMED Code(s): 74309269 Code(s): E11.9 - TYPE 2 DIABETES MELLITUS WITHOUT COMPLICATIONS Priority: High Current Visit: Yes Problem List Initiated/Reviewed/Updated: Yes Plan: Patient now seems to be developing an area of fluctuance on the right buttock. This would be most consistent with a perianal abscess. She did eat breakfast th is morning, so has not been nothing by mouth. I do note the hospitalist services sending her down for repeat CAT scan. I do think she would benefit from incision and drainage and I will discuss this with Dr. Marcelino who will be on-call for surgery this weekend.
[2019-10-22] MEDS ORDERED: Iopamidol 755 MG/ML 500 ML Multipack Bottle IVPUSH ONE (12:23)
--- NOTE | 2019-10-22 13:35 | CT ---
INDICATION: Perirectal abscess/cellulitis. TECHNIQUE: CT abdomen and pelvis acquired with 100 cc Isovue 370 IV contrast. COMPARISON: October 20, 2019. FINDINGS: Lower chest: Unremarkable. Liver: There is periportal edema. Otherwise unremarkable. Gallbladder and bile ducts: Pericholecystic fluid is present. Otherwise unremarkable. Pancreas: Unremarkable. No mass or inflammation. Spleen: Few small anterior cysts of doubtful significance. Otherwise unremarkable. Adrenal glands: Unremarkable. No nodules. Kidneys: Few tiny nonobstructive renal stones. No hydronephrosis. GI tract: Unremarkable. Normal in caliber. No sign of mass or inflammation. Vasculature: Unremarkable. Mesenteric arteries are patent. Lymph nodes: No lymphadenopathy. Omentum/Peritoneum/Abdominal Wall: Unremarkable. No sign of mass or infiltration. No free air or significant free fluid. Pelvis: Again demonstrated is relatively severe right side perirectal inflammation which has slightly worsened. Oval-shaped ill-defined fluid collection in this area has slightly increased in size but is otherwise unchanged in appearance. No defined fluid collection to suggest abscess. Bones: Unremarkable for age. IMPRESSION: Slight interval worsening of a right side perirectal phlegmon and inflammation/cellulitis. Still no defined fluid collection to suggest abscess. No other significant changes. Please note that all CT scans at this facility use dose modulation, iterative reconstruction, and/or weight-based dosing when appropriate to reduce radiation dose to as low as reasonably achievable. Dictated by Colt Harman MD @ Oct 22 2019 1:20PM Signed by Dr. Colt Harman @ Oct 22 2019 1:34PM
[2019-10-22] MEDS ORDERED: HYDROmorphone 1 MG/ML Syringe IVPUSH PRN (15:04)
[2019-10-22] MEDS: Ibuprofen 400 MG Tab PO PRN (21:32)
[2019-10-22] MEDS: Insulin Detemir 100 Units/ML 3 ML Pen SUBCUT SCH (21:35)
[2019-10-22] MEDS: Melatonin 3 MG Tab PO PRN (22:50)
[2019-10-23] MEDS: HYDROmorphone 1 MG/ML Syringe IVPUSH PRN ×9 (01:52→23:56)
[2019-10-23] MEDS: Lactated Ringers 1,000 ML IV SCH (03:44)
[2019-10-23] MEDS: Acetaminophen/HYDROcodone 325-5 MG Tab PO PRN (03:47)
[2019-10-23] MEDS: Ibuprofen 400 MG Tab PO PRN ×2 (03:47→16:41)
[2019-10-23] MEDS: Piperacillin/Tazobactam 3.375 GM in Sodium Chloride 0.9% 50 ML IV SCH ×4 (06:02→22:15)
[2019-10-23 06:41] LABS: BLOOD UREA NITROGEN,BUN 9 mg/dL (7.0-18.0); CHLORIDE,CL 107 mmol/L (98-107); GLUCOSE RANDOM 227 mg/dL (74-106); POTASSIUM,K 3.2 mmol/L (3.5-5.1); SODIUM,NA 138 mmol/L (136-145)
[2019-10-23] MEDS: Insulin Aspart 100 Units/ML 3 ML Pen SUBCUT SCH ×3 (07:04→17:37)
[2019-10-23] MEDS ORDERED: Bupivacaine 0.5% 10 ML SDV ONE (07:10)
--- NOTE | 2019-10-23 07:58 | PCM.PREANE ---
Preanesthetic Assessment - Procedure Proposed Procedure: Perianal abscess I&D - Anesthesia/Transfusion/Family Hx Anesthesia History: Prior Anesthesia Without Reaction (Appendectomy as child, and wisdom teeth without complications) Family History of Anesthesia Reaction: No Transfusion History: No Prior Transfusion(s) - Review of Systems General: No Symptoms, Other (Poor dentition. Multiple missing and chipped teeth on top and bottom.) Pulmonary: No Symptoms Cardiovascular: No Symptoms Gastrointestinal: No Symptoms Neurological: No Symptoms Other: Reports: None (Perianal pain r/t abscess. Well-controlled and able to sleep per pt.) - Physical Assessment NPO Status Date: 10/22/19 NPO Status Time: 22:00 Vital Signs: Last Vital Signs Temp 36.8 C 10/23/19 03:45 Pulse 86 10/23/19 03:45 Resp 16 10/23/19 03:45 BP 106/71 10/23/19 03:45 Pulse Ox 94 L 10/23/19 03:45 Height: 1.73 m Weight: 71.259 kg ASA Class: 2 Mental Status: Alert & Oriented x3 Airway Class: Mallampati = 2 Dentition: Reports: Broken Tooth/Teeth, Missing Tooth/Teeth Thyro-Mental Finger Breadths: 4 Mouth Opening Finger Breadths: 3 ROM/Head Extension: Full Lungs: Clear to Auscultation, Normal Respiratory Effort Cardiovascular: Regular Rate, Regular Rhythm - Lab Values: Laboratory Last Values WBC 8.58 K/uL (4.0-11.0) 10/23/19 06:00 RBC 3.00 M/uL (4.30-5.90) L 10/23/19 06:00 Hgb 9.0 g/dL (12.0-16.0) L 10/23/19 06:00 Hct 26.7 % (36.0-46.0) L 10/23/19 06:00 MCV 89.0 fL (80.0-98.0) 10/23/19 06:00 MCH 30.0 pg (27.0-32.0) 10/23/19 06:00 MCHC 33.7 g/dL (31.0-37.0) 10/23/19 06:00 RDW Std Deviation 40.8 fl (28.0-62.0) 10/23/19 06:00 RDW Coeff of [place] 13 % (11.0-15.0) 10/23/19 06:00 Plt Count 422 K/uL (150-400) H 10/23/19 06:00 MPV 9.40 fL (7.40-12.00) 10/23/19 06:00 Neut % (Auto) 65.4 % (48.0-80.0) 10/23/19 06:00 Lymph % (Auto) 24.0 % (16.0-40.0) 10/23/19 06:00 [place] % (Auto) 8.7 % (0.0-15.0) 10/23/19 06:00 Eos % (Auto) 1.4 % (0.0-7.0) 10/23/19 06:00 Baso % (Auto) 0.5 % (0.0-1.5) 10/23/19 06:00 Neut # (Auto) 5.6 K/uL (1.4-5.7) 10/23/19 06:00 Lymph # (Auto) 2.1 K/uL (0.6-2.4) 10/23/19 06:00 [place] # (Auto) 0.8 K/uL (0.0-0.8) 10/23/19 06:00 Eos # (Auto) 0.1 K/uL (0.0-0.7) 10/23/19 06:00 Baso # (Auto) 0.0 K/uL (0.0-0.1) 10/23/19 06:00 Nucleated RBC % 0.0 /100WBC 10/23/19 06:00 Nucleated RBCs # 0 K/uL 10/23/19 06:00 APTT 25.0 SEC (18.6-31.3) 10/19/19 23:10 Lactate 2.0 mmol/L (0.20-2.00) 10/20/19 01:53 Sodium 138 mmol/L (136-145) 10/23/19 06:00 Potassium 3.2 mmol/L (3.5-5.1) L 10/23/19 06:00 Chloride 107 mmol/L (98-107) 10/23/19 06:00 Carbon Dioxide 22.0 mmol/L (21.0-32.0) 10/23/19 06:00 BUN 9 mg/dL (7.0-18.0) 10/23/19 06:00 Creatinine 0.5 mg/dL (0.6-1.0) L 10/23/19 06:00 Est Cr Clr Drug Dosing 158.42 mL/min 10/23/19 06:00 Estimated GFR (MDRD) > 60.0 ml/min 10/23/19 06:00 Glucose 227 mg/dL (74-106) H 10/23/19 06:00 POC Glucose 218 mg/dL (60-110) H 10/23/19 07:00 Hemoglobin A1c 12.8 % (4.5-6.2) H 10/19/19 23:10 Calcium 8.1 mg/dL (8.5-10.1) L 10/23/19 06:00 Total Bilirubin 0.2 mg/dL (0.2-1.0) 10/19/19 23:10 AST 10 IU/L (15-37) L 10/19/19 23:10 ALT 9 IU/L (14-63) L 10/19/19 23:10 Alkaline Phosphatase 93 U/L (46-116) 10/19/19 23:10 Total Protein 7.3 g/dL (6.4-8.2) 10/19/19 23:10 Albumin 3.3 g/dL (3.4-5.0) L 10/19/19 23:10 Globulin 4.0 g/dL (2.6-4.0) 10/19/19 23:10 Albumin/Globulin Ratio 0.8 (0.9-1.6) L 10/19/19 23:10 HCG, Qual NEGATIVE (NEG) 10/19/19 23:10 Urine Color YELLOW 10/20/19 01:45 Urine Appearance CLEAR 10/20/19 01:45 Urine pH 5.5 (5.0-8.0) 10/20/19 01:45 Ur Specific [place] 1.010 (1.001-1.035) 10/20/19 01:45 Urine Protein NEGATIVE mg/dL (NEGATIVE) 10/20/19 01:45 Urine Glucose (UA) >=1000 mg/dL (NEGATIVE) 10/20/19 01:45 Urine Ketones NEGATIVE mg/dL (NEGATIVE) 10/20/19 01:45 Urine Occult Blood TRACE-INTACT (NEGATIVE) H 10/20/19 01:45 Urine Nitrite NEGATIVE (NEGATIVE) 10/20/19 01:45 Urine Bilirubin NEGATIVE (NEGATIVE) 10/20/19 01:45 Urine Urobilinogen 0.2 EU/dL (<2.0) 10/20/19 01:45 Ur Leukocyte Esterase NEGATIVE (NEGATIVE) 10/20/19 01:45 Urine RBC NONE SEEN (0-2/HPF) 10/20/19 01:45 Urine WBC 0-1 (0-5/HPF) 10/20/19 01:45 Ur Epithelial Cells RARE (NONE-FEW) 10/20/19 01:45 Urine Bacteria RARE (NEGATIVE) 10/20/19 01:45 Urine Mucus LIGHT (NONE-MOD) 10/20/19 01:45 Vancomycin Trough 6.2 ug/mL (5.0-10.0) 10/22/19 02:30 Ketones NEGATIVE (NEG) 10/20/19 23:10 SARS Virus RNA (PCR) NEGATIVE (NEGATIVE) 10/20/19 01:30 - Allergies Allergies/Adverse Reactions: Allergies Allergy/AdvReac Type Severity Reaction Status Date / Time No Known Allergies Allergy Verified 10/20/19 03:43 - Acknowledgements Anesthesia Type Planned: General Anesthesia Pt an Appropriate Candidate for the Planned Anesthesia: Yes Alternatives and Risks of Anesthesia Discussed w Pt/Guardian: Yes Pt/Guardian Understands and Agrees with Anesthesia Plan: Yes PreAnesthesia Questionnaire HEENT History: Reports: None Cardiovascular History: Reports: None Respiratory History: Reports: None Gastrointestinal History: Reports: None Genitourinary History: Reports: None 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 Musculoskeletal History: Reports: None Neurological History: Reports: None Psychiatric History: Reports: Anxiety, Depression Endocrine/Metabolic History: Reports: Diabetes, Type II Hematologic History: Reports: None Immunologic History: Reports: None Oncologic (Cancer) History: Reports: None Dermatologic History: Reports: None - Infectious Disease History Infectious Disease History: Reports: None - Past Surgical History Head Surgeries/Procedures: Reports: None GI Surgical History: Reports: Appendectomy Female Surgical History: Reports: None - SUBSTANCE USE Smoking Status *Q: Current Every Day Smoker Tobacco Use Within Last Twelve Months: Cigarettes Recreational Drug Use History: No - HOME MEDS Home Medications: Home Meds FLUoxetine [PROzac] 20 mg PO DAILY 10/19/19 [History] metFORMIN [Glucophage] 1,000 mg PO BIDMEALS 10/19/19 [History] glyBURIDE [Micronase] 5 mg PO DAILY 10/20/19 [History] - CURRENT (IN HOUSE) MEDS Current Meds: Current Medications Hydrocodone Bitart/Acetaminophen ([place] 325-5 Mg) 1 tab PO Q4H PRN PRN Reason: Pain Last Admin: 10/23/19 03:47 Dose: 1 tab Documented by: Fluoxetine HCl (Prozac) 20 mg PO DAILY [facility] Last Admin: 10/22/19 08:57 Dose: 20 mg Documented by: Hydromorphone HCl (Dilaudid) 1 mg IVPUSH Q3H PRN PRN Reason: Pain Last Admin: 10/23/19 06:06 Dose: 1 mg Documented by: Lactated Ringer's (Ringers, Lactated) 1,000 mls @ 125 mls/hr IV ASDIRECTED [facility] Last Admin: 10/23/19 03:44 Dose: 125 mls/hr Documented by: Piperacillin Sod/Tazobactam (Sod 3.375 gm/ Sodium Chloride) 50 mls @ 100 mls/hr IV Q6H [facility] Last Admin: 10/23/19 06:02 Dose: 100 mls/hr Documented by: Vancomycin HCl 1.25 gm/ Sodium (Chloride) 250 mls @ 166.667 mls/hr IV Q12H [facility] Last Admin: 10/23/19 03:30 Dose: Not Given Documented by: Ibuprofen (Motrin) 400 mg PO Q6H PRN PRN Reason: Pain Last Admin: 10/23/19 03:47 Dose: 400 mg Documented by: Insulin Aspart (Novolog) 0 unit SUBCUT TIDAC [facility]; Protocol Last Admin: 10/23/19 07:04 Dose: 6 units Documented by: Insulin Detemir (Levemir) 12 unit SUBCUT BEDTIME [facility] Last Admin: 10/22/19 21:35 Dose: 12 units Documented by: Melatonin (Melatonin) 6 mg PO BEDTIME PRN PRN Reason: Insomnia Last Admin: 10/22/19 22:50 Dose: 6 mg Documented by: Vancomycin HCl (Pharmacy To Dose - Vancomycin) 1 dose .XX ASDIRECTED [facility] Discontinued Medications Acetaminophen (Tylenol) 650 mg PO Q6H PRN PRN Reason: Pain Last Admin: 10/20/19 15:00 Dose: 650 mg Documented by: Bupivacaine HCl (Sensorcaine-Mpf 0.5%) Confirm Administered Dose 10 ml .ROUTE .STK-MED ONE Stop: 10/23/19 07:11 Fluoxetine HCl (Prozac) 25 mg PO DAILY [facility] Hydromorphone HCl (Dilaudid) 0.5 mg IVPUSH Q4H PRN PRN Reason: Pain Last Admin: 10/22/19 12:33 Dose: 0.5 mg Documented by: Hydromorphone HCl (Dilaudid) 1 mg IVPUSH Q4H PRN PRN Reason: Pain Lactated Ringer's (Ringers, Lactated) 1,000 mls @ 999 mls/hr IV .BOLUS ONE Stop: 10/20/19 00:08 Last Admin: 10/19/19 23:29 Dose: 999 mls/hr Documented by: Lactated Ringer's (Ringers, Lactated) 1,000 mls @ 999 mls/hr IV .BOLUS ONE Stop: 10/20/19 01:12 Last Admin: 10/20/19 00:40 Dose: 999 mls/hr Documented by: Piperacillin Sod/Tazobactam (Sod 3.375 gm/ Sodium Chloride) 50 mls @ 100 mls/hr IV ONETIME ONE Stop: 10/20/19 01:57 Last Admin: 10/20/19 03:47 Dose: 100 mls/hr Documented by: Vancomycin HCl 1 gm/ Sodium (Chloride) 250 mls @ 166 mls/hr IV ONETIME ONE Stop: 10/20/19 02:58 Last Admin: 10/20/19 01:44 Dose: 166 mls/hr Documented by: Lactated Ringer's (Ringers, Lactated) 1,000 mls @ 999 mls/hr IV .BOLUS ONE Stop: 10/20/19 02:40 Last Admin: 10/20/19 01:45 Dose: 999 mls/hr Documented by: Vancomycin HCl 1 gm/ Sodium (Chloride) 250 mls @ 166 mls/hr IV Q12H LOU Last Admin: 10/21/19 14:53 Dose: 166 mls/hr Documented by: Sodium Chloride (Normal Saline) 1,000 mls @ 999 mls/hr IV .Bolus ONE Stop: 08/28/20 10:56 Last Admin: 10/22/19 10:37 Dose: 999 mls/hr Documented by: Insulin Aspart (Novolog) 0 unit SUBCUT TIDAC [facility]; Protocol Last Admin: 10/20/19 07:37 Dose: 6 units Documented by: Insulin Aspart (Novolog) 0 unit SUBCUT Q6H [facility]; Protocol Last Admin: 10/20/19 11:40 Dose: 9 units Documented by: Insulin Detemir (Levemir) 10 unit SUBCUT ONETIME ONE Stop: 10/20/19 19:16 Last Admin: 10/20/19 20:49 Dose: 10 units Documented by: Insulin Detemir (Levemir) 12 unit SUBCUT BEDTIME LOU Last Admin: 10/21/19 22:16 Dose: Not Given Documented by: Insulin Human Regular (Novolin R) 8 unit IVPUSH ONETIME ONE; Protocol Stop: 10/20/19 00:14 Last Admin: 10/20/19 00:41 Dose: 8 unit Documented by: Iopamidol (Isovue Multipack-370 (76%)) 75 ml IVPUSH ONETIME STA Stop: 10/20/19 00:39 Last Admin: 10/20/19 00:39 Dose: 75 ml Documented by: Iopamidol (Isovue Multipack-370 (76%)) 100 ml IVPUSH ONETIME ONE Stop: 10/22/19 12:24 Last Admin: 10/22/19 12:26 Dose: 100 ml Documented by: Morphine Sulfate (Morphine) 4 mg IVPUSH ONETIME ONE Stop: 10/19/19 23:09 Last Admin: 10/19/19 23:29 Dose: 4 mg Documented by: Morphine Sulfate (Morphine) 4 mg IVPUSH ONETIME ONE Stop: 10/20/19 02:30 Last Admin: 10/20/19 02:37 Dose: 4 mg Documented by: Morphine Sulfate (Morphine) 1 mg IVPUSH Q4H PRN PRN Reason: Chest Pain Last Admin: 10/20/19 07:36 Dose: 1 mg Documented by: Morphine Sulfate (Morphine) 2 mg IVPUSH Q4H PRN PRN Reason: Pain Morphine Sulfate (Morphine) 2 mg IVPUSH Q4H PRN PRN Reason: Pain Last Admin: 10/20/19 15:04 Dose: 2 mg Documented by: Ondansetron HCl (Zofran) 4 mg IVPUSH ONETIME ONE Stop: 10/20/19 02:30 Last Admin: 10/20/19 02:36 Dose: 4 mg Documented by: Potassium Chloride (Klor-Con M20) 40 meq PO ONETIME ONE Stop: 10/21/19 07:31 Last Admin: 10/21/19 08:40 Dose: 40 meq Documented by: Potassium Chloride (Klor-Con M20) 40 meq PO ONETIME ONE Stop: 10/22/19 07:31 Last Admin: 10/22/19 08:21 Dose: 40 meq Documented by:
[2019-10-23] MEDS ORDERED: Propofol 200 MG/20 ML SDV ONE (08:01)
[2019-10-23] MEDS ORDERED: Ondansetron 4 MG/2 ML SDV ONE (08:01)
[2019-10-23] MEDS ORDERED: fentaNYL 100 MCG/2 ML SDV ONE ×2 (08:01→08:06)
[2019-10-23] MEDS ORDERED: HYDROmorphone 2 MG/ML Syringe ONE ×2 (08:02→10:19)
[2019-10-23] MEDS ORDERED: Midazolam 1 MG/ML 2 ML SDV ONE (08:02)
[2019-10-23] MEDS ORDERED: Lidocaine 2% 5 ML SDV ONE (08:06)
--- NOTE | 2019-10-23 09:09 | PCM.OPNOTE ---
- General Post-Op/Procedure Note Date of Surgery/Procedure: 10/23/19 Operative Procedure(s): Excision and debridement of right buttock abscess Findings: Complex multiloculated abscess cavity of the right buttock and anoderm containing necrotic material. No evidence of a fistula Pre Op Diagnosis: Left buttock abscess Post-Op Diagnosis: Left buttock abscess Anesthesia Technique: General LMA Primary Surgeon: Hui Marcelino Fluid Replacement, Intraop: 1,000 EBL in mLs: 3 Drain/Tube Comments:: Raysa drains X 3 Condition: Fair Free Text/Narrative:: Intake & Output 10/22/19 10/23/19 10/23/19 22:59 06:59 14:59 Intake Total 1031 3470 Balance 1031 3470
[2019-10-23] MEDS: HYDROmorphone 1 MG/ML Syringe IV ONE ×2 (09:20→10:13)
[2019-10-23] MEDS: Ketorolac 30 MG/ML SDV IVPUSH ONE ×2 (09:25→10:15)
--- NOTE | 2019-10-23 09:58 | PCM48HPAN ---
Post Anesthesia Note - EVALUATION WITHIN 48HRS OF ANESTHETIC Vital Signs in Normal Range: Yes Patient Participated in Evaluation: Yes Respiratory Function Stable: Yes Airway Patent: Yes Cardiovascular Function Stable: Yes Hydration Status Stable: Yes Pain Control Satisfactory: Yes (Reports improved pain control.) Nausea and Vomiting Control Satisfactory: Yes Mental Status Recovered: Yes Vital Signs: Last Vital Signs Temp 36.8 C 10/23/19 09:45 Pulse 76 10/23/19 09:45 Resp 16 10/23/19 09:45 BP 117/75 10/23/19 09:45 Pulse Ox 99 10/23/19 09:45 - COMMENTS/OBSERVATIONS Free Text/Narrative:: Late entry, assessed at 0938
--- NOTE | 2019-10-23 09:58 | PCM.POSTAN ---
POST ANESTHESIA ASSESSMENT - MENTAL STATUS Mental Status: Alert (Late entry, assessed at 0930), Oriented - VITAL SIGNS Vital Signs: Last Vital Signs Temp 36.8 C 10/23/19 09:45 Pulse 76 10/23/19 09:45 Resp 16 10/23/19 09:45 BP 117/75 10/23/19 09:45 Pulse Ox 99 10/23/19 09:45 - RESPIRATORY Respiratory Status: Respiratory Rate WNL, Airway Patent, O2 Saturation Stable - CARDIOVASCULAR CV Status: Pulse Rate WNL, Blood Pressure Stable - GASTROINTESTINAL GI Status: No Symptoms - PAIN Pain Score: 6 - POST OP HYDRATION Hydration Status: Adequate & Stable
[2019-10-23] MEDS: Acetaminophen/HYDROcodone 325-10 MG Tab PO PRN ×3 (10:05→21:48)
[2019-10-23] MEDS: FLUoxetine 20 MG Cap PO SCH (10:05)
[2019-10-23] MEDS: HYDROmorphone 2 MG/ML Syringe ONE ×2 (10:14→10:32)
--- NOTE | 2019-10-23 10:59 | PCM.PN ---
<Prince Rock - Last Filed: 10/23/19 12:20> - General Info Date of Service: 10/23/19 Subjective Update: Bedside: patient does not endorse any pain post-procedure and just feels tired. No acute distress Functional Status: Reports: Pain Controlled - Review of Systems General: Reports: No Symptoms HEENT: Reports: No Symptoms Pulmonary: Reports: No Symptoms Cardiovascular: Reports: No Symptoms Gastrointestinal: Reports: No Symptoms Neurological: Reports: No Symptoms Psychiatric: Reports: No Symptoms - Patient Data Vitals - Most Recent: Last Vital Signs Temp 98.2 F 10/23/19 09:45 Pulse 82 10/23/19 10:30 Resp 17 10/23/19 10:30 BP 138/94 H 10/23/19 10:30 Pulse Ox 99 10/23/19 10:30 Weight - Most Recent: 71.259 kg I&O - Last 24 Hours: Intake & Output 10/22/19 10/23/19 10/23/19 22:59 06:59 14:59 Intake Total 1031 3470 2200 Balance 1031 3470 2200 Lab Results Last 24 Hours: Laboratory Results - last 24 hr 10/22/19 10/22/19 10/23/19 Range/Units 11:29 17:20 06:00 WBC 8.58 (4.0-11.0) K/uL RBC 3.00 L (4.30-5.90) M/uL Hgb 9.0 L (12.0-16.0) g/dL Hct 26.7 L (36.0-46.0) % MCV 89.0 (80.0-98.0) fL MCH 30.0 (27.0-32.0) pg MCHC 33.7 (31.0-37.0) g/dL RDW Std Deviation 40.8 (28.0-62.0) fl RDW Coeff of Yuni 13 (11.0-15.0) % Plt Count 422 H (150-400) K/uL MPV 9.40 (7.40-12.00) fL Neut % (Auto) 65.4 (48.0-80.0) % Lymph % (Auto) 24.0 (16.0-40.0) % Grant % (Auto) 8.7 (0.0-15.0) % Eos % (Auto) 1.4 (0.0-7.0) % Baso % (Auto) 0.5 (0.0-1.5) % Neut # (Auto) 5.6 (1.4-5.7) K/uL Lymph # (Auto) 2.1 (0.6-2.4) K/uL Grant # (Auto) 0.8 (0.0-0.8) K/uL Eos # (Auto) 0.1 (0.0-0.7) K/uL Baso # (Auto) 0.0 (0.0-0.1) K/uL Nucleated RBC % 0.0 /100WBC Nucleated RBCs # 0 K/uL Sodium (136-145) mmol/L Potassium (3.5-5.1) mmol/L Chloride (98-107) mmol/L Carbon Dioxide (21.0-32.0) mmol/L BUN (7.0-18.0) mg/dL Creatinine (0.6-1.0) mg/dL Est Cr Clr Drug Dosing mL/min Estimated GFR (MDRD) ml/min Glucose (74-106) mg/dL POC Glucose 347 H 234 H (60-110) mg/dL Calcium (8.5-10.1) mg/dL 10/23/19 10/23/19 Range/Units 06:00 07:00 WBC (4.0-11.0) K/uL RBC (4.30-5.90) M/uL Hgb (12.0-16.0) g/dL Hct (36.0-46.0) % MCV (80.0-98.0) fL MCH (27.0-32.0) pg MCHC (31.0-37.0) g/dL RDW Std Deviation (28.0-62.0) fl RDW Coeff of Yuni (11.0-15.0) % Plt Count (150-400) K/uL MPV (7.40-12.00) fL Neut % (Auto) (48.0-80.0) % Lymph % (Auto) (16.0-40.0) % Grant % (Auto) (0.0-15.0) % Eos % (Auto) (0.0-7.0) % Baso % (Auto) (0.0-1.5) % Neut # (Auto) (1.4-5.7) K/uL Lymph # (Auto) (0.6-2.4) K/uL Grant # (Auto) (0.0-0.8) K/uL Eos # (Auto) (0.0-0.7) K/uL Baso # (Auto) (0.0-0.1) K/uL Nucleated RBC % /100WBC Nucleated RBCs # K/uL Sodium 138 (136-145) mmol/L Potassium 3.2 L (3.5-5.1) mmol/L Chloride 107 (98-107) mmol/L Carbon Dioxide 22.0 (21.0-32.0) mmol/L BUN 9 (7.0-18.0) mg/dL Creatinine 0.5 L (0.6-1.0) mg/dL Est Cr Clr Drug Dosing 158.42 mL/min Estimated GFR (MDRD) > 60.0 ml/min Glucose 227 H (74-106) mg/dL POC Glucose 218 H (60-110) mg/dL Calcium 8.1 L (8.5-10.1) mg/dL Javi Results Last 24 Hours: Microbiology 10/20/19 01:45 Aerobic Blood Culture - Preliminary Blood NO GROWTH AFTER 3 DAYS Anaerobic Blood Culture - Preliminary NO GROWTH AFTER 3 DAYS 10/20/19 01:53 Aerobic Blood Culture - Preliminary Blood NO GROWTH AFTER 3 DAYS Anaerobic Blood Culture - Preliminary NO GROWTH AFTER 3 DAYS Med Orders - Current: Current Medications Hydrocodone Bitart/Acetaminophen (Moore 325-10 Mg) 2 tab PO Q4H PRN PRN Reason: Pain Last Admin: 10/23/19 10:05 Dose: 2 tab Documented by: Fluoxetine HCl (Prozac) 20 mg PO DAILY [facility] Last Admin: 10/23/19 10:05 Dose: 20 mg Documented by: Hydromorphone HCl (Dilaudid) 0.5 mg IVPUSH Q1H PRN PRN Reason: Pain Last Admin: 10/23/19 10:52 Dose: 0.5 mg Documented by: Lactated Ringer's (Ringers, Lactated) 1,000 mls @ 125 mls/hr IV ASDIRECTED [facility] Last Admin: 10/23/19 03:44 Dose: 125 mls/hr Documented by: Piperacillin Sod/Tazobactam (Sod 3.375 gm/ Sodium Chloride) 50 mls @ 100 mls/hr IV Q6H [facility] Last Admin: 10/23/19 10:55 Dose: 100 mls/hr Documented by: Vancomycin HCl 1.25 gm/ Sodium (Chloride) 250 mls @ 166.667 mls/hr IV Q12H [facility] Last Admin: 10/23/19 03:30 Dose: Not Given Documented by: Ibuprofen (Motrin) 400 mg PO Q6H PRN PRN Reason: Pain Last Admin: 10/23/19 03:47 Dose: 400 mg Documented by: Insulin Aspart (Novolog) 0 unit SUBCUT TIDAC [facility]; Protocol Last Admin: 10/23/19 07:04 Dose: 6 units Documented by: Insulin Detemir (Levemir) 12 unit SUBCUT BEDTIME [facility] Last Admin: 10/22/19 21:35 Dose: 12 units Documented by: Melatonin (Melatonin) 6 mg PO BEDTIME PRN PRN Reason: Insomnia Last Admin: 10/22/19 22:50 Dose: 6 mg Documented by: Vancomycin HCl (Pharmacy To Dose - Vancomycin) 1 dose .XX ASDIRECTED [facility] Discontinued Medications Acetaminophen (Tylenol) 650 mg PO Q6H PRN PRN Reason: Pain Last Admin: 10/20/19 15:00 Dose: 650 mg Documented by: Hydrocodone Bitart/Acetaminophen (Moore 325-5 Mg) 1 tab PO Q4H PRN PRN Reason: Pain Last Admin: 10/23/19 03:47 Dose: 1 tab Documented by: Bupivacaine HCl (Sensorcaine-Mpf 0.5%) Confirm Administered Dose 10 ml .ROUTE .STK-MED ONE Stop: 10/23/19 07:11 Fentanyl (Sublimaze) Confirm Administered Dose 100 mcg .ROUTE .STK-MED ONE Stop: 10/23/19 08:02 Fentanyl (Sublimaze) Confirm Administered Dose 100 mcg .ROUTE .STK-MED ONE Stop: 10/23/19 08:07 Fluoxetine HCl (Prozac) 25 mg PO DAILY [facility] Hydromorphone HCl (Dilaudid) 0.5 mg IVPUSH Q4H PRN PRN Reason: Pain Last Admin: 10/22/19 12:33 Dose: 0.5 mg Documented by: Hydromorphone HCl (Dilaudid) 1 mg IVPUSH Q4H PRN PRN Reason: Pain Hydromorphone HCl (Dilaudid) 1 mg IVPUSH Q3H PRN PRN Reason: Pain Last Admin: 10/23/19 06:06 Dose: 1 mg Documented by: Hydromorphone HCl (Dilaudid) Confirm Administered Dose 2 mg .ROUTE .STK-MED ONE Stop: 10/23/19 08:03 Hydromorphone HCl (Dilaudid) 1 mg IV ONETIME ONE Stop: 10/23/19 09:18 Last Admin: 10/23/19 09:20 Dose: 1 mg Documented by: Hydromorphone HCl (Dilaudid) Confirm Administered Dose 2 mg .ROUTE .STK-MED ONE Stop: 10/23/19 09:19 Last Admin: 10/23/19 10:32 Dose: Not Given Documented by: Hydromorphone HCl (Dilaudid) Confirm Administered Dose 2 mg .ROUTE .STK-MED ONE Stop: 10/23/19 10:20 Last Admin: 10/23/19 09:20 Dose: Not Given Documented by: Lactated Ringer's (Ringers, Lactated) 1,000 mls @ 999 mls/hr IV .BOLUS ONE Stop: 10/20/19 00:08 Last Admin: 10/19/19 23:29 Dose: 999 mls/hr Documented by: Lactated Ringer's (Ringers, Lactated) 1,000 mls @ 999 mls/hr IV .BOLUS ONE Stop: 10/20/19 01:12 Last Admin: 10/20/19 00:40 Dose: 999 mls/hr Documented by: Piperacillin Sod/Tazobactam (Sod 3.375 gm/ Sodium Chloride) 50 mls @ 100 mls/hr IV ONETIME ONE Stop: 10/20/19 01:57 Last Admin: 10/20/19 03:47 Dose: 100 mls/hr Documented by: Vancomycin HCl 1 gm/ Sodium (Chloride) 250 mls @ 166 mls/hr IV ONETIME ONE Stop: 10/20/19 02:58 Last Admin: 10/20/19 01:44 Dose: 166 mls/hr Documented by: Lactated Ringer's (Ringers, Lactated) 1,000 mls @ 999 mls/hr IV .BOLUS ONE Stop: 10/20/19 02:40 Last Admin: 10/20/19 01:45 Dose: 999 mls/hr Documented by: Vancomycin HCl 1 gm/ Sodium (Chloride) 250 mls @ 166 mls/hr IV Q12H [facility] Last Admin: 10/21/19 14:53 Dose: 166 mls/hr Documented by: Sodium Chloride (Normal Saline) 1,000 mls @ 999 mls/hr IV .Bolus ONE Stop: 10/22/19 10:56 Last Admin: 10/22/19 10:37 Dose: 999 mls/hr Documented by: Insulin Aspart (Novolog) 0 unit SUBCUT TIDAC [facility]; Protocol Last Admin: 10/20/19 07:37 Dose: 6 units Documented by: Insulin Aspart (Novolog) 0 unit SUBCUT Q6H [facility]; Protocol Last Admin: 10/20/19 11:40 Dose: 9 units Documented by: Insulin Detemir (Levemir) 10 unit SUBCUT ONETIME ONE Stop: 10/20/19 19:16 Last Admin: 10/20/19 20:49 Dose: 10 units Documented by: Insulin Detemir (Levemir) 12 unit SUBCUT BEDTIME [facility] Last Admin: 10/21/19 22:16 Dose: Not Given Documented by: Insulin Human Regular (Novolin R) 8 unit IVPUSH ONETIME ONE; Protocol Stop: 10/20/19 00:14 Last Admin: 10/20/19 00:41 Dose: 8 unit Documented by: Iopamidol (Isovue Multipack-370 (76%)) 75 ml IVPUSH ONETIME STA Stop: 10/20/19 00:39 Last Admin: 10/20/19 00:39 Dose: 75 ml Documented by: Iopamidol (Isovue Multipack-370 (76%)) 100 ml IVPUSH ONETIME ONE Stop: 10/22/19 12:24 Last Admin: 10/22/19 12:26 Dose: 100 ml Documented by: Ketorolac Tromethamine (Toradol) 15 mg IVPUSH ONETIME ONE Stop: 10/23/19 09:23 Last Admin: 10/23/19 09:25 Dose: 15 mg Documented by: Lidocaine (Xylocaine-Mpf 2%) Confirm Administered Dose 5 ml .ROUTE .STK-MED ONE Stop: 10/23/19 08:07 Midazolam HCl (Versed 1 Mg/Ml) Confirm Administered Dose 2 mg .ROUTE .STK-MED ONE Stop: 10/23/19 08:03 Morphine Sulfate (Morphine) 4 mg IVPUSH ONETIME ONE Stop: 10/19/19 23:09 Last Admin: 10/19/19 23:29 Dose: 4 mg Documented by: Morphine Sulfate (Morphine) 4 mg IVPUSH ONETIME ONE Stop: 10/20/19 02:30 Last Admin: 10/20/19 02:37 Dose: 4 mg Documented by: Morphine Sulfate (Morphine) 1 mg IVPUSH Q4H PRN PRN Reason: Chest Pain Last Admin: 10/20/19 07:36 Dose: 1 mg Documented by: Morphine Sulfate (Morphine) 2 mg IVPUSH Q4H PRN PRN Reason: Pain Morphine Sulfate (Morphine) 2 mg IVPUSH Q4H PRN PRN Reason: Pain Last Admin: 10/20/19 15:04 Dose: 2 mg Documented by: Ondansetron HCl (Zofran) 4 mg IVPUSH ONETIME ONE Stop: 10/20/19 02:30 Last Admin: 10/20/19 02:36 Dose: 4 mg Documented by: Ondansetron HCl (Zofran) Confirm Administered Dose 4 mg .ROUTE .STK-MED ONE Stop: 10/23/19 08:02 Potassium Chloride (Klor-Con M20) 40 meq PO ONETIME ONE Stop: 10/21/19 07:31 Last Admin: 10/21/19 08:40 Dose: 40 meq Documented by: Potassium Chloride (Klor-Con M20) 40 meq PO ONETIME ONE Stop: 10/22/19 07:31 Last Admin: 10/22/19 08:21 Dose: 40 meq Documented by: Propofol (Diprivan 20 Ml) Confirm Administered Dose 200 mg .ROUTE .STK-MED ONE Stop: 10/23/19 08:02 - Exam Quality Assessment: No: Supplemental Oxygen General: Alert, Oriented, Cooperative, No Acute Distress Neck: Supple Lungs: Clear to Auscultation, Normal Respiratory Effort Cardiovascular: Regular Rate, Regular Rhythm GI/Abdominal Exam: Soft, Non-Tender, Other (packing p[ost-procedure in-situ ) Extremities: Normal Inspection Neurological: No New Focal Deficit Psy/Mental Status: Alert, Normal Affect, Normal Mood Sepsis Event Note - Evaluation Sepsis Screening Result: No Definite Risk - Focused Exam Vital Signs: Vital Signs Temp Pulse Resp BP BP Pulse Ox 10/23/19 10:30 82 17 138/94 H 99 10/23/19 10:15 75 17 110/76 97 10/23/19 10:00 73 16 111/82 94 L 10/23/19 09:45 98.2 F 76 16 117/75 99 10/23/19 09:37 84 9 L 97/63 100 10/23/19 09:30 80 16 93/69 100 10/23/19 09:21 85 12 109/68 98 10/23/19 09:17 87 19 101/69 98 10/23/19 09:12 87 13 92/61 96 10/23/19 09:09 91 15 88/67 L 97 10/23/19 09:05 97.7 F 84 14 89/61 L 92 L 10/23/19 07:30 98.5 F 82 16 99/61 94 L 10/23/19 03:45 98.2 F 86 16 106/71 94 L 10/22/19 23:42 97.9 F 91 16 122/78 96 - Problem List Review Problem List Initiated/Reviewed/Updated: Yes - My Orders Last 24 Hours: My Active Orders 10/24/19 05:11 BMP [BASIC METABOLIC PANEL,BMP] [CHEM] AM CBC WITH AUTO DIFF [HEME] AM - Plan Plan:: Assessment: 1. Margot-rectal cellulitis w. concerns for early abscess vs phlegmon formation 2. Elevated BG in a type II DM 3. Mild leukocytosis:resolved 4. Pseudohyponatremia:resolved 5. Hypokalemia Plan Admit to observation. Full code. i/O;s per routine. GI:pantoprazole 40 DVT: SCD (if surgery required) 1. Cellulitis: Bcx ordered, afebrile; continue on Vancomycin and Zosyn S/p Incision and drainge courtesy of Surgical team; We appreciate Dr Marcelino's expertise and help.. Continue IV abx; recheck labs in AM; discussed case with surgery; will recheck dressing as needed pt tolerated procedure w.o any overt issues 2. DM w. elevated BG: hold PO meds including glyburide and metformin: sliding scale initiated +Levemir Q nightly: increased to 12 ; will consider 14 tonight based off AM/PM glucose trends A1c elevated at 12 DM educator recommendations discussed and agreed with; will set up outpatient PCP referral for follow up and DM control history of DKA 4 years prior; never on insulin provided Levemir 12 units last night to evaluate for response and tolerability Discussed diet + medication regimen; will reassess based off of insurance/tolerability Hypokalemia: provided with 40 PO mEq of Potassium Chloride in AM ; recheck BMP tomorrow AM <Raphael Levy - Last Filed: 10/24/19 22:31> - Patient Data Vitals - Most Recent: Last Vital Signs Temp 36.3 C 10/24/19 12:22 Pulse 86 10/24/19 12:22 Resp 14 10/24/19 12:22 BP 104/65 10/24/19 12:22 Pulse Ox 95 10/24/19 12:22 I&O - Last 24 Hours: Intake & Output 10/24/19 10/24/19 10/24/19 06:59 14:59 22:59 Intake Total 800 350 Output Total 3 Balance 797 350 Lab Results Last 24 Hours: Laboratory Results - last 24 hr 10/24/19 10/24/19 10/24/19 Range/Units 06:00 06:00 06:26 WBC 10.73 (4.0-11.0) K/uL RBC 3.16 L (4.30-5.90) M/uL Hgb 9.4 L (12.0-16.0) g/dL Hct 28.7 L (36.0-46.0) % MCV 90.8 (80.0-98.0) fL MCH 29.7 (27.0-32.0) pg MCHC 32.8 (31.0-37.0) g/dL RDW Std Deviation 42.4 (28.0-62.0) fl RDW Coeff of Yuni 13 (11.0-15.0) % Plt Count 455 H (150-400) K/uL MPV 9.10 (7.40-12.00) fL Neut % (Auto) 76.4 (48.0-80.0) % Lymph % (Auto) 12.8 L (16.0-40.0) % Grant % (Auto) 9.2 (0.0-15.0) % Eos % (Auto) 1.2 (0.0-7.0) % Baso % (Auto) 0.4 (0.0-1.5) % Neut # (Auto) 8.2 H (1.4-5.7) K/uL Lymph # (Auto) 1.4 (0.6-2.4) K/uL Grant # (Auto) 1.0 H (0.0-0.8) K/uL Eos # (Auto) 0.1 (0.0-0.7) K/uL Baso # (Auto) 0.0 (0.0-0.1) K/uL Nucleated RBC % 0.0 /100WBC Nucleated RBCs # 0 K/uL Sodium 140 (136-145) mmol/L Potassium 3.6 (3.5-5.1) mmol/L Chloride 106 (98-107) mmol/L Carbon Dioxide 25.0 (21.0-32.0) mmol/L BUN 8 (7.0-18.0) mg/dL Creatinine 0.7 (0.6-1.0) mg/dL Est Cr Clr Drug Dosing 113.16 mL/min Estimated GFR (MDRD) > 60.0 ml/min Glucose 280 H (74-106) mg/dL POC Glucose 248 H (60-110) mg/dL Calcium 8.2 L (8.5-10.1) mg/dL Vancomycin Trough (5.0-10.0) ug/mL 10/24/19 10/24/19 Range/Units 11:14 15:31 WBC (4.0-11.0) K/uL RBC (4.30-5.90) M/uL Hgb (12.0-16.0) g/dL Hct (36.0-46.0) % MCV (80.0-98.0) fL MCH (27.0-32.0) pg MCHC (31.0-37.0) g/dL RDW Std Deviation (28.0-62.0) fl RDW Coeff of Yuni (11.0-15.0) % Plt Count (150-400) K/uL MPV (7.40-12.00) fL Neut % (Auto) (48.0-80.0) % Lymph % (Auto) (16.0-40.0) % Grant % (Auto) (0.0-15.0) % Eos % (Auto) (0.0-7.0) % Baso % (Auto) (0.0-1.5) % Neut # (Auto) (1.4-5.7) K/uL Lymph # (Auto) (0.6-2.4) K/uL Grant # (Auto) (0.0-0.8) K/uL Eos # (Auto) (0.0-0.7) K/uL Baso # (Auto) (0.0-0.1) K/uL Nucleated RBC % /100WBC Nucleated RBCs # K/uL Sodium (136-145) mmol/L Potassium (3.5-5.1) mmol/L Chloride (98-107) mmol/L Carbon Dioxide (21.0-32.0) mmol/L BUN (7.0-18.0) mg/dL Creatinine (0.6-1.0) mg/dL Est Cr Clr Drug Dosing mL/min Estimated GFR (MDRD) ml/min Glucose (74-106) mg/dL POC Glucose 143 H (60-110) mg/dL Calcium (8.5-10.1) mg/dL Vancomycin Trough 17.2 H (5.0-10.0) ug/mL Javi Results Last 24 Hours: Microbiology 10/20/19 01:45 Aerobic Blood Culture - Preliminary Blood NO GROWTH AFTER 4 DAYS Anaerobic Blood Culture - Preliminary NO GROWTH AFTER 4 DAYS 10/20/19 01:53 Aerobic Blood Culture - Preliminary Blood NO GROWTH AFTER 4 DAYS Anaerobic Blood Culture - Preliminary NO GROWTH AFTER 4 DAYS Med Orders - Current: Current Medications Discontinued Medications Acetaminophen (Tylenol) 650 mg PO Q6H PRN PRN Reason: Pain Last Admin: 10/20/19 15:00 Dose: 650 mg Documented by: Hydrocodone Bitart/Acetaminophen (Moore 325-5 Mg) 1 tab PO Q4H PRN PRN Reason: Pain Last Admin: 10/23/19 03:47 Dose: 1 tab Documented by: Hydrocodone Bitart/Acetaminophen (Moore 325-10 Mg) 2 tab PO Q4H PRN PRN Reason: Pain Last Admin: 10/24/19 17:04 Dose: 2 tab Documented by: Bupivacaine HCl (Sensorcaine-Mpf 0.5%) Confirm Administered Dose 10 ml .ROUTE .STK-MED ONE Stop: 10/23/19 07:11 Fentanyl (Sublimaze) Confirm Administered Dose 100 mcg .ROUTE .STK-MED ONE Stop: 10/23/19 08:02 Fentanyl (Sublimaze) Confirm Administered Dose 100 mcg .ROUTE .STK-MED ONE Stop: 10/23/19 08:07 Fluoxetine HCl (Prozac) 25 mg PO DAILY [facility] Fluoxetine HCl (Prozac) 20 mg PO DAILY [facility] Last Admin: 10/24/19 08:20 Dose: 20 mg Documented by: Hydromorphone HCl (Dilaudid) 0.5 mg IVPUSH Q4H PRN PRN Reason: Pain Last Admin: 10/22/19 12:33 Dose: 0.5 mg Documented by: Hydromorphone HCl (Dilaudid) 1 mg IVPUSH Q4H PRN PRN Reason: Pain Hydromorphone HCl (Dilaudid) 1 mg IVPUSH Q3H PRN PRN Reason: Pain Last Admin: 10/23/19 06:06 Dose: 1 mg Documented by: Hydromorphone HCl (Dilaudid) Confirm Administered Dose 2 mg .ROUTE .STK-MED ONE Stop: 10/23/19 08:03 Hydromorphone HCl (Dilaudid) 1 mg IV ONETIME ONE Stop: 10/23/19 09:18 Last Admin: 10/23/19 09:20 Dose: 1 mg Documented by: Hydromorphone HCl (Dilaudid) Confirm Administered Dose 2 mg .ROUTE .STK-MED ONE Stop: 10/23/19 09:19 Last Admin: 10/23/19 10:32 Dose: Not Given Documented by: Hydromorphone HCl (Dilaudid) 0.5 mg IVPUSH Q1H PRN PRN Reason: Pain Last Admin: 10/24/19 10:39 Dose: 0.5 mg Documented by: Hydromorphone HCl (Dilaudid) Confirm Administered Dose 2 mg .ROUTE .STK-MED ONE Stop: 10/23/19 10:20 Last Admin: 10/23/19 09:20 Dose: Not Given Documented by: Hydromorphone HCl (Dilaudid) 0.5 mg IVPUSH Q4H PRN PRN Reason: Pain Lactated Ringer's (Ringers, Lactated) 1,000 mls @ 999 mls/hr IV .BOLUS ONE Stop: 10/20/19 00:08 Last Admin: 10/19/19 23:29 Dose: 999 mls/hr Documented by: Lactated Ringer's (Ringers, Lactated) 1,000 mls @ 999 mls/hr IV .BOLUS ONE Stop: 10/20/19 01:12 Last Admin: 10/20/19 00:40 Dose: 999 mls/hr Documented by: Piperacillin Sod/Tazobactam (Sod 3.375 gm/ Sodium Chloride) 50 mls @ 100 mls/hr IV ONETIME ONE Stop: 10/20/19 01:57 Last Admin: 10/20/19 03:47 Dose: 100 mls/hr Documented by: Vancomycin HCl 1 gm/ Sodium (Chloride) 250 mls @ 166 mls/hr IV ONETIME ONE Stop: 10/20/19 02:58 Last Admin: 10/20/19 01:44 Dose: 166 mls/hr Documented by: Lactated Ringer's (Ringers, Lactated) 1,000 mls @ 999 mls/hr IV .BOLUS ONE Stop: 10/20/19 02:40 Last Admin: 10/20/19 01:45 Dose: 999 mls/hr Documented by: Lactated Ringer's (Ringers, Lactated) 1,000 mls @ 125 mls/hr IV ASDIRECTED [facility] Last Admin: 10/23/19 03:44 Dose: 125 mls/hr Documented by: Vancomycin HCl 1 gm/ Sodium (Chloride) 250 mls @ 166 mls/hr IV Q12H [facility] Last Admin: 10/21/19 14:53 Dose: 166 mls/hr Documented by: Piperacillin Sod/Tazobactam (Sod 3.375 gm/ Sodium Chloride) 50 mls @ 100 mls/hr IV Q6H [facility] Last Admin: 10/24/19 13:20 Dose: 100 mls/hr Documented by: Vancomycin HCl 1.25 gm/ Sodium (Chloride) 250 mls @ 166.667 mls/hr IV Q12H [facility] Last Admin: 10/23/19 19:16 Dose: Not Given Documented by: Sodium Chloride (Normal Saline) 1,000 mls @ 999 mls/hr IV .Bolus ONE Stop: 10/22/19 10:56 Last Admin: 10/22/19 10:37 Dose: 999 mls/hr Documented by: Vancomycin HCl 1.25 gm/ Sodium (Chloride) 250 mls @ 166.667 mls/hr IV Q8H [facility] Last Admin: 10/24/19 16:26 Dose: Not Given Documented by: Vancomycin HCl 1 gm/ Sodium (Chloride) 250 mls @ 166 mls/hr IV Q8H [facility] Ibuprofen (Motrin) 400 mg PO Q6H PRN PRN Reason: Pain Last Admin: 10/23/19 16:41 Dose: 400 mg Documented by: Insulin Aspart (Novolog) 0 unit SUBCUT TIDAC [facility]; Protocol Last Admin: 10/20/19 07:37 Dose: 6 units Documented by: Insulin Aspart (Novolog) 0 unit SUBCUT Q6H [facility]; Protocol Last Admin: 10/20/19 11:40 Dose: 9 units Documented by: Insulin Aspart (Novolog) 0 unit SUBCUT TIDAC [facility]; Protocol Last Admin: 10/24/19 12:22 Dose: Not Given Documented by: Insulin Detemir (Levemir) 10 unit SUBCUT ONETIME ONE Stop: 10/20/19 19:16 Last Admin: 10/20/19 20:49 Dose: 10 units Documented by: Insulin Detemir (Levemir) 12 unit SUBCUT BEDTIME [facility] Last Admin: 10/21/19 22:16 Dose: Not Given Documented by: Insulin Detemir (Levemir) 12 unit SUBCUT BEDTIME [facility] Last Admin: 10/22/19 21:35 Dose: 12 units Documented by: Insulin Detemir (Levemir) 14 unit SUBCUT BEDTIME [facility] Last Admin: 10/23/19 22:11 Dose: 14 units Documented by: Insulin Human Regular (Novolin R) 8 unit IVPUSH ONETIME ONE; Protocol Stop: 10/20/19 00:14 Last Admin: 10/20/19 00:41 Dose: 8 unit Documented by: Iopamidol (Isovue Multipack-370 (76%)) 75 ml IVPUSH ONETIME STA Stop: 10/20/19 00:39 Last Admin: 10/20/19 00:39 Dose: 75 ml Documented by: Iopamidol (Isovue Multipack-370 (76%)) 100 ml IVPUSH ONETIME ONE Stop: 10/22/19 12:24 Last Admin: 10/22/19 12:26 Dose: 100 ml Documented by: Ketorolac Tromethamine (Toradol) 15 mg IVPUSH ONETIME ONE Stop: 10/23/19 09:23 Last Admin: 10/23/19 09:25 Dose: 15 mg Documented by: Lidocaine (Xylocaine-Mpf 2%) Confirm Administered Dose 5 ml .ROUTE .STK-MED ONE Stop: 10/23/19 08:07 Melatonin (Melatonin) 6 mg PO BEDTIME PRN PRN Reason: Insomnia Last Admin: 10/23/19 22:12 Dose: 6 mg Documented by: Midazolam HCl (Versed 1 Mg/Ml) Confirm Administered Dose 2 mg .ROUTE .STK-MED ONE Stop: 10/23/19 08:03 Morphine Sulfate (Morphine) 4 mg IVPUSH ONETIME ONE Stop: 10/19/19 23:09 Last Admin: 10/19/19 23:29 Dose: 4 mg Documented by: Morphine Sulfate (Morphine) 4 mg IVPUSH ONETIME ONE Stop: 10/20/19 02:30 Last Admin: 10/20/19 02:37 Dose: 4 mg Documented by: Morphine Sulfate (Morphine) 1 mg IVPUSH Q4H PRN PRN Reason: Chest Pain Last Admin: 10/20/19 07:36 Dose: 1 mg Documented by: Morphine Sulfate (Morphine) 2 mg IVPUSH Q4H PRN PRN Reason: Pain Morphine Sulfate (Morphine) 2 mg IVPUSH Q4H PRN PRN Reason: Pain Last Admin: 10/20/19 15:04 Dose: 2 mg Documented by: Ondansetron HCl (Zofran) 4 mg IVPUSH ONETIME ONE Stop: 10/20/19 02:30 Last Admin: 10/20/19 02:36 Dose: 4 mg Documented by: Ondansetron HCl (Zofran) Confirm Administered Dose 4 mg .ROUTE .STK-MED ONE Stop: 10/23/19 08:02 Ondansetron HCl (Zofran) 4 mg IVPUSH Q6H PRN PRN Reason: Nausea/Vomiting Last Admin: 10/24/19 04:06 Dose: 4 mg Documented by: Ondansetron HCl (Zofran) 4 mg IVPUSH Q4H PRN PRN Reason: Nausea Last Admin: 10/24/19 12:20 Dose: 4 mg Documented by: Oxycodone HCl (Oxycodone) 5 mg PO Q4H PRN PRN Reason: Pain Last Admin: 10/24/19 14:26 Dose: 5 mg Documented by: Potassium Chloride (Klor-Con M20) 40 meq PO ONETIME ONE Stop: 10/21/19 07:31 Last Admin: 10/21/19 08:40 Dose: 40 meq Documented by: Potassium Chloride (Klor-Con M20) 40 meq PO ONETIME ONE Stop: 10/22/19 07:31 Last Admin: 10/22/19 08:21 Dose: 40 meq Documented by: Potassium Chloride (Klor-Con M20) 40 meq PO DAILY [facility] Last Admin: 10/24/19 08:19 Dose: 40 meq Documented by: Propofol (Diprivan 20 Ml) Confirm Administered Dose 200 mg .ROUTE .STK-MED ONE Stop: 10/23/19 08:02 Vancomycin HCl (Pharmacy To Dose - Vancomycin) 1 dose .XX ASDIRECTED [facility] Sepsis Event Note - Focused Exam Vital Signs: Vital Signs Temp Pulse Resp BP Pulse Ox 10/24/19 12:22 36.3 C 86 14 104/65 95 - Free Text/Narrative Note: I have seen and evaluated the patient. I have discussed findings and treatment plan with resident. I agree with the assessment and plan as outlined in the following note.
--- NOTE | 2019-10-23 11:32 | OR ---
SURGEON: HUI MARCELINO MD DATE OF PROCEDURE: 10/23/2019 PREOPERATIVE DIAGNOSIS: Right buttock cellulitis and abscess. POSTOPERATIVE DIAGNOSIS: Right buttock cellulitis and abscess. PROCEDURE PERFORMED: Excisional debridement and drainage, right buttock abscess. PRIMARY SURGEON: Hui Marcelino MD. ANESTHESIA: General LMA. FLUID: 1 L crystalloid. EBL: 3 mL. FINDINGS: A complex multiloculated abscess cavity on the right buttock and anoderm containing necrotic material. The wound cavity measured approximately 12 x 10 x 3 cm. No evidence of a perianal fistula. COMPLICATIONS: None. INDICATIONS: The patient is a 34-year-old female who was admitted earlier this week with right buttock cellulitis. She was placed on IV antibiotics. Yesterday, she was noted to have a necrotic area associated with fluctuance on the right posterior anoderm. The patient was consented for an incision and drainage of perianal abscess with possible seton placement if a fistula was identified. I explained the procedure, expected perioperative course, and the risks including bleeding, infection, or damage to surrounding structures. The patient verbalized understanding and wishes to proceed. PROCEDURE IN DETAIL: The patient was brought into the OR and placed on the OR table in supine position. A time-out was completed verifying the patient's name, age, date of , allergies, and procedure to be performed. General LMA anesthesia was induced. Once adequate anesthesia was achieved and the airway was secured, the patient was placed in the left lateral decubitus position making sure to appropriately cushion and pad all bony prominences and to secure the patient to the table. The buttocks and anoderm were then prepped and draped in usual standard fashion. I started the case by grasping the necrotic tissue along the right posterior anoderm. The necrotic area measured 1.5 x 1 cm in size. The tissue was grasped with a forceps and elevated. This was attached to a large amount of necrotic tissue which was located within the abscess cavity. Using sharp dissection, I was able to dissect this tissue free from the underlying skin and soft tissues. A 3 x 4 cm piece of necrotic material covered in the pus was placed on the back table. I then began to explore the abscess cavity. It tracked both anteriorly, posteriorly, and laterally. It tunneled laterally 10 cm to the side. This area was explored with a fistula probe. All loculations were then bluntly broken up. A counter incision was made with a 15 blade and a Kelliher drain was looped through the lateral aspect of the incision. I then explored the wound posteriorly. This tracked about 2 cm posteriorly. All loculations were broken up bluntly. I then explored the wound anteriorly. There was a small opening anteriorly that tracked into a larger abscess cavity. This was explored bluntly with a hemostat. More necrotic tissue was encountered and suctioned out. A counter incision was made using a 15 blade and a quarter- inch Raysa was looped through this. Again, I palpated around the area and discovered another pocket that was more anterior than the one I had just explored. Using hemostat, I was able to find again another narrow connection between these two pockets. I opened this up and more necrotic purulent material was encountered. Another counter incision was made and another quarter-inch Raysa was looped through this. After I had assured myself that I had explored all the cavities associated with this abscess, I then irrigated the wound copiously. It was measured. It measured 12 cm from medial to lateral. It measured 10 cm from anterior to posterior and was 3 cm deep at the deepest point. I anesthetized the skin overlying these areas with 10 mL of 0.5% Marcaine plain. I then performed a digital rectal exam. This was normal. A bivalve proctoscope was inserted in the anus and I closely inspected the anal canal mucosa. There was no evidence of a fistula. Using a fistula probe, I attempted to palpate through the abscess cavity toward the anal canal, but again, no fistula was identified. The proctoscope was removed. I then packed the abscess cavity with 1-inch iodoform packing strip. The Raysa drains were secured in place with interrupted 2-0 silk sutures on the skin. 4 x 4 fluffs were placed over the area and secured in place with mesh underwear. The patient was placed back on the OR cart and extubated. She was taken to the PACU in stable condition. IRVING FLOYD /[id number]
[2019-10-23] MEDS: Potassium Chloride 20 MEQ Tab.ER PO SCH (12:00)
[2019-10-23] MEDS: Ondansetron 4 MG/2 ML SDV IVPUSH PRN ×2 (16:39→22:55)
[2019-10-23] MEDS ORDERED: Insulin Detemir 100 Units/ML 3 ML Pen SUBCUT SCH (21:00)
[2019-10-23] MEDS: Melatonin 3 MG Tab PO PRN (22:12)
[2019-10-24] MEDS: HYDROmorphone 1 MG/ML Syringe IVPUSH PRN ×6 (02:09→10:39)
[2019-10-24] MEDS: Ondansetron 4 MG/2 ML SDV IVPUSH PRN (04:06)
[2019-10-24] MEDS: Piperacillin/Tazobactam 3.375 GM in Sodium Chloride 0.9% 50 ML IV SCH ×2 (06:04→13:20)
[2019-10-24 06:23] LABS: BLOOD UREA NITROGEN,BUN 8 mg/dL (7.0-18.0); CHLORIDE,CL 106 mmol/L (98-107); GLUCOSE RANDOM 280 mg/dL (74-106); POTASSIUM,K 3.6 mmol/L (3.5-5.1); SODIUM,NA 140 mmol/L (136-145)
[2019-10-24] MEDS: Acetaminophen/HYDROcodone 325-10 MG Tab PO PRN ×3 (07:32→17:04)
[2019-10-24] MEDS: Insulin Aspart 100 Units/ML 3 ML Pen SUBCUT SCH ×2 (07:38→12:22)
--- NOTE | 2019-10-24 08:11 | PCM48HPAN ---
Post Anesthesia Note - EVALUATION WITHIN 48HRS OF ANESTHETIC Vital Signs in Normal Range: Yes Patient Participated in Evaluation: Yes Respiratory Function Stable: Yes Airway Patent: Yes Cardiovascular Function Stable: Yes Hydration Status Stable: Yes Pain Control Satisfactory: Yes (Pain well- controlled through night per patient. 09/02 now and due for meds.) Nausea and Vomiting Control Satisfactory: Yes (Taking PO well with no nausea/vomiting) Mental Status Recovered: Yes Vital Signs: Last Vital Signs Temp 36.7 C 10/24/19 07:22 Pulse 95 10/24/19 07:22 Resp 18 10/24/19 04:07 BP 116/81 10/24/19 07:22 Pulse Ox 95 10/24/19 07:22
[2019-10-24] MEDS: Potassium Chloride 20 MEQ Tab.ER PO SCH (08:19)
[2019-10-24] MEDS: FLUoxetine 20 MG Cap PO SCH (08:20)
[2019-10-24] MEDS ORDERED: Ondansetron 4 MG/2 ML SDV IVPUSH PRN (09:51)
[2019-10-24] MEDS ORDERED: HYDROmorphone 1 MG/ML Syringe IVPUSH PRN (13:31)
[2019-10-24] MEDS ORDERED: oxyCODONE 5 MG Tab PO PRN (13:31)
--- NOTE | 2019-10-24 14:22 | PCM.SURGPN ---
- General Info Date of Service: 10/24/19 Date of Surgery/Procedure: 10/23/19 POD#: 1 Functional Status: Reports: Other (Patient having headache this am which was causing nausea and vomiting. Pain along buttocks controlled with medication. WBC normal this am. Vitals stable. ) - Review of Systems HEENT: Reports: Headaches Pulmonary: Reports: No Symptoms Cardiovascular: Reports: No Symptoms Gastrointestinal: Reports: Nausea, Vomiting Genitourinary: Reports: No Symptoms Musculoskeletal: Reports: No Symptoms Skin: Reports: No Symptoms - Patient Data Vitals - Most Recent: Last Vital Signs Temp 36.3 C 10/24/19 12:22 Pulse 86 10/24/19 12:22 Resp 14 10/24/19 12:22 BP 104/65 10/24/19 12:22 Pulse Ox 95 10/24/19 12:22 Weight - Most Recent: 71.259 kg I&O - Last 24 Hours: Intake & Output 10/23/19 10/24/19 10/24/19 22:59 06:59 14:59 Intake Total 1000 800 Output Total 1051 3 Balance -51 797 Lab Results Last 24 Hrs: Laboratory Results - last 24 hr 10/23/19 10/23/19 10/23/19 Range/Units 14:25 17:15 22:10 WBC (4.0-11.0) K/uL RBC (4.30-5.90) M/uL Hgb (12.0-16.0) g/dL Hct (36.0-46.0) % MCV (80.0-98.0) fL MCH (27.0-32.0) pg MCHC (31.0-37.0) g/dL RDW Std Deviation (28.0-62.0) fl RDW Coeff of Yuni (11.0-15.0) % Plt Count (150-400) K/uL MPV (7.40-12.00) fL Neut % (Auto) (48.0-80.0) % Lymph % (Auto) (16.0-40.0) % Starr % (Auto) (0.0-15.0) % Eos % (Auto) (0.0-7.0) % Baso % (Auto) (0.0-1.5) % Neut # (Auto) (1.4-5.7) K/uL Lymph # (Auto) (0.6-2.4) K/uL Starr # (Auto) (0.0-0.8) K/uL Eos # (Auto) (0.0-0.7) K/uL Baso # (Auto) (0.0-0.1) K/uL Nucleated RBC % /100WBC Nucleated RBCs # K/uL Sodium (136-145) mmol/L Potassium (3.5-5.1) mmol/L Chloride (98-107) mmol/L Carbon Dioxide (21.0-32.0) mmol/L BUN (7.0-18.0) mg/dL Creatinine (0.6-1.0) mg/dL Est Cr Clr Drug Dosing mL/min Estimated GFR (MDRD) ml/min Glucose (74-106) mg/dL POC Glucose 178 H 238 H (60-110) mg/dL Calcium (8.5-10.1) mg/dL Vancomycin Trough 4.4 L (5.0-10.0) ug/mL 10/24/19 10/24/19 10/24/19 Range/Units 06:00 06:00 06:26 WBC 10.73 (4.0-11.0) K/uL RBC 3.16 L (4.30-5.90) M/uL Hgb 9.4 L (12.0-16.0) g/dL Hct 28.7 L (36.0-46.0) % MCV 90.8 (80.0-98.0) fL MCH 29.7 (27.0-32.0) pg MCHC 32.8 (31.0-37.0) g/dL RDW Std Deviation 42.4 (28.0-62.0) fl RDW Coeff of Yuni 13 (11.0-15.0) % Plt Count 455 H (150-400) K/uL MPV 9.10 (7.40-12.00) fL Neut % (Auto) 76.4 (48.0-80.0) % Lymph % (Auto) 12.8 L (16.0-40.0) % Starr % (Auto) 9.2 (0.0-15.0) % Eos % (Auto) 1.2 (0.0-7.0) % Baso % (Auto) 0.4 (0.0-1.5) % Neut # (Auto) 8.2 H (1.4-5.7) K/uL Lymph # (Auto) 1.4 (0.6-2.4) K/uL Starr # (Auto) 1.0 H (0.0-0.8) K/uL Eos # (Auto) 0.1 (0.0-0.7) K/uL Baso # (Auto) 0.0 (0.0-0.1) K/uL Nucleated RBC % 0.0 /100WBC Nucleated RBCs # 0 K/uL Sodium 140 (136-145) mmol/L Potassium 3.6 (3.5-5.1) mmol/L Chloride 106 (98-107) mmol/L Carbon Dioxide 25.0 (21.0-32.0) mmol/L BUN 8 (7.0-18.0) mg/dL Creatinine 0.7 (0.6-1.0) mg/dL Est Cr Clr Drug Dosing 113.16 mL/min Estimated GFR (MDRD) > 60.0 ml/min Glucose 280 H (74-106) mg/dL POC Glucose 248 H (60-110) mg/dL Calcium 8.2 L (8.5-10.1) mg/dL Vancomycin Trough (5.0-10.0) ug/mL 10/24/19 Range/Units 11:14 WBC (4.0-11.0) K/uL RBC (4.30-5.90) M/uL Hgb (12.0-16.0) g/dL Hct (36.0-46.0) % MCV (80.0-98.0) fL MCH (27.0-32.0) pg MCHC (31.0-37.0) g/dL RDW Std Deviation (28.0-62.0) fl RDW Coeff of Yuni (11.0-15.0) % Plt Count (150-400) K/uL MPV (7.40-12.00) fL Neut % (Auto) (48.0-80.0) % Lymph % (Auto) (16.0-40.0) % Starr % (Auto) (0.0-15.0) % Eos % (Auto) (0.0-7.0) % Baso % (Auto) (0.0-1.5) % Neut # (Auto) (1.4-5.7) K/uL Lymph # (Auto) (0.6-2.4) K/uL Starr # (Auto) (0.0-0.8) K/uL Eos # (Auto) (0.0-0.7) K/uL Baso # (Auto) (0.0-0.1) K/uL Nucleated RBC % /100WBC Nucleated RBCs # K/uL Sodium (136-145) mmol/L Potassium (3.5-5.1) mmol/L Chloride (98-107) mmol/L Carbon Dioxide (21.0-32.0) mmol/L BUN (7.0-18.0) mg/dL Creatinine (0.6-1.0) mg/dL Est Cr Clr Drug Dosing mL/min Estimated GFR (MDRD) ml/min Glucose (74-106) mg/dL POC Glucose 143 H (60-110) mg/dL Calcium (8.5-10.1) mg/dL Vancomycin Trough (5.0-10.0) ug/mL Javi Results Last 24 Hrs: Microbiology 10/20/19 01:45 Aerobic Blood Culture - Preliminary Blood NO GROWTH AFTER 4 DAYS Anaerobic Blood Culture - Preliminary NO GROWTH AFTER 4 DAYS 10/20/19 01:53 Aerobic Blood Culture - Preliminary Blood NO GROWTH AFTER 4 DAYS Anaerobic Blood Culture - Preliminary NO GROWTH AFTER 4 DAYS 10/23/19 08:40 Gram Stain - Preliminary Anus Med Orders - Current: Current Medications Hydrocodone Bitart/Acetaminophen ([place] 325-10 Mg) 2 tab PO Q4H PRN PRN Reason: Pain Last Admin: 10/24/19 12:20 Dose: 2 tab Documented by: Fluoxetine HCl (Prozac) 20 mg PO DAILY LOU Last Admin: 10/24/19 08:20 Dose: 20 mg Documented by: Hydromorphone HCl (Dilaudid) 0.5 mg IVPUSH Q4H PRN PRN Reason: Pain Piperacillin Sod/Tazobactam (Sod 3.375 gm/ Sodium Chloride) 50 mls @ 100 mls/hr IV Q6H LOU Last Admin: 10/24/19 13:20 Dose: 100 mls/hr Documented by: Vancomycin HCl 1.25 gm/ Sodium (Chloride) 250 mls @ 166.667 mls/hr IV Q8H [facility] Last Admin: 10/24/19 08:17 Dose: 166.667 mls/hr Documented by: Insulin Aspart (Novolog) 0 unit SUBCUT TIDAC [facility]; Protocol Last Admin: 10/24/19 12:22 Dose: Not Given Documented by: Insulin Detemir (Levemir) 14 unit SUBCUT BEDTIME [facility] Last Admin: 10/23/19 22:11 Dose: 14 units Documented by: Melatonin (Melatonin) 6 mg PO BEDTIME PRN PRN Reason: Insomnia Last Admin: 10/23/19 22:12 Dose: 6 mg Documented by: Ondansetron HCl (Zofran) 4 mg IVPUSH Q4H PRN PRN Reason: Nausea Last Admin: 10/24/19 12:20 Dose: 4 mg Documented by: Oxycodone HCl (Oxycodone) 5 mg PO Q4H PRN PRN Reason: Pain Potassium Chloride (Klor-Con M20) 40 meq PO DAILY [facility] Last Admin: 10/24/19 08:19 Dose: 40 meq Documented by: Vancomycin HCl (Pharmacy To Dose - Vancomycin) 1 dose .XX ASDIRECTED [facility] Discontinued Medications Acetaminophen (Tylenol) 650 mg PO Q6H PRN PRN Reason: Pain Last Admin: 10/20/19 15:00 Dose: 650 mg Documented by: Hydrocodone Bitart/Acetaminophen ([place] 325-5 Mg) 1 tab PO Q4H PRN PRN Reason: Pain Last Admin: 10/23/19 03:47 Dose: 1 tab Documented by: Bupivacaine HCl (Sensorcaine-Mpf 0.5%) Confirm Administered Dose 10 ml .ROUTE .STK-MED ONE Stop: 10/23/19 07:11 Fentanyl (Sublimaze) Confirm Administered Dose 100 mcg .ROUTE .STK-MED ONE Stop: 10/23/19 08:02 Fentanyl (Sublimaze) Confirm Administered Dose 100 mcg .ROUTE .STK-MED ONE Stop: 10/23/19 08:07 Fluoxetine HCl (Prozac) 25 mg PO DAILY [facility] Hydromorphone HCl (Dilaudid) 0.5 mg IVPUSH Q4H PRN PRN Reason: Pain Last Admin: 10/22/19 12:33 Dose: 0.5 mg Documented by: Hydromorphone HCl (Dilaudid) 1 mg IVPUSH Q4H PRN PRN Reason: Pain Hydromorphone HCl (Dilaudid) 1 mg IVPUSH Q3H PRN PRN Reason: Pain Last Admin: 10/23/19 06:06 Dose: 1 mg Documented by: Hydromorphone HCl (Dilaudid) Confirm Administered Dose 2 mg .ROUTE .STK-MED ONE Stop: 10/23/19 08:03 Hydromorphone HCl (Dilaudid) 1 mg IV ONETIME ONE Stop: 10/23/19 09:18 Last Admin: 10/23/19 09:20 Dose: 1 mg Documented by: Hydromorphone HCl (Dilaudid) Confirm Administered Dose 2 mg .ROUTE .STK-MED ONE Stop: 10/23/19 09:19 Last Admin: 10/23/19 10:32 Dose: Not Given Documented by: Hydromorphone HCl (Dilaudid) 0.5 mg IVPUSH Q1H PRN PRN Reason: Pain Last Admin: 10/24/19 10:39 Dose: 0.5 mg Documented by: Hydromorphone HCl (Dilaudid) Confirm Administered Dose 2 mg .ROUTE .STK-MED ONE Stop: 10/23/19 10:20 Last Admin: 10/23/19 09:20 Dose: Not Given Documented by: Lactated Ringer's (Ringers, Lactated) 1,000 mls @ 999 mls/hr IV .BOLUS ONE Stop: 10/20/19 00:08 Last Admin: 10/19/19 23:29 Dose: 999 mls/hr Documented by: Lactated Ringer's (Ringers, Lactated) 1,000 mls @ 999 mls/hr IV .BOLUS ONE Stop: 10/20/19 01:12 Last Admin: 10/20/19 00:40 Dose: 999 mls/hr Documented by: Piperacillin Sod/Tazobactam (Sod 3.375 gm/ Sodium Chloride) 50 mls @ 100 mls/hr IV ONETIME ONE Stop: 10/20/19 01:57 Last Admin: 10/20/19 03:47 Dose: 100 mls/hr Documented by: Vancomycin HCl 1 gm/ Sodium (Chloride) 250 mls @ 166 mls/hr IV ONETIME ONE Stop: 10/20/19 02:58 Last Admin: 10/20/19 01:44 Dose: 166 mls/hr Documented by: Lactated Ringer's (Ringers, Lactated) 1,000 mls @ 999 mls/hr IV .BOLUS ONE Stop: 10/20/19 02:40 Last Admin: 10/20/19 01:45 Dose: 999 mls/hr Documented by: Lactated Ringer's (Ringers, Lactated) 1,000 mls @ 125 mls/hr IV ASDIRECTED [facility] Last Admin: 10/23/19 03:44 Dose: 125 mls/hr Documented by: Vancomycin HCl 1 gm/ Sodium (Chloride) 250 mls @ 166 mls/hr IV Q12H [facility] Last Admin: 10/21/19 14:53 Dose: 166 mls/hr Documented by: Vancomycin HCl 1.25 gm/ Sodium (Chloride) 250 mls @ 166.667 mls/hr IV Q12H [facility] Last Admin: 10/23/19 19:16 Dose: Not Given Documented by: Sodium Chloride (Normal Saline) 1,000 mls @ 999 mls/hr IV .Bolus ONE Stop: 10/22/19 10:56 Last Admin: 10/22/19 10:37 Dose: 999 mls/hr Documented by: Ibuprofen (Motrin) 400 mg PO Q6H PRN PRN Reason: Pain Last Admin: 10/23/19 16:41 Dose: 400 mg Documented by: Insulin Aspart (Novolog) 0 unit SUBCUT TIDAC [facility]; Protocol Last Admin: 10/20/19 07:37 Dose: 6 units Documented by: Insulin Aspart (Novolog) 0 unit SUBCUT Q6H [facility]; Protocol Last Admin: 10/20/19 11:40 Dose: 9 units Documented by: Insulin Detemir (Levemir) 10 unit SUBCUT ONETIME ONE Stop: 10/20/19 19:16 Last Admin: 10/20/19 20:49 Dose: 10 units Documented by: Insulin Detemir (Levemir) 12 unit SUBCUT BEDTIME [facility] Last Admin: 10/21/19 22:16 Dose: Not Given Documented by: Insulin Detemir (Levemir) 12 unit SUBCUT BEDTIME [facility] Last Admin: 10/22/19 21:35 Dose: 12 units Documented by: Insulin Human Regular (Novolin R) 8 unit IVPUSH ONETIME ONE; Protocol Stop: 10/20/19 00:14 Last Admin: 10/20/19 00:41 Dose: 8 unit Documented by: Iopamidol (Isovue Multipack-370 (76%)) 75 ml IVPUSH ONETIME STA Stop: 10/20/19 00:39 Last Admin: 10/20/19 00:39 Dose: 75 ml Documented by: Iopamidol (Isovue Multipack-370 (76%)) 100 ml IVPUSH ONETIME ONE Stop: 10/22/19 12:24 Last Admin: 10/22/19 12:26 Dose: 100 ml Documented by: Ketorolac Tromethamine (Toradol) 15 mg IVPUSH ONETIME ONE Stop: 10/23/19 09:23 Last Admin: 10/23/19 09:25 Dose: 15 mg Documented by: Lidocaine (Xylocaine-Mpf 2%) Confirm Administered Dose 5 ml .ROUTE .STK-MED ONE Stop: 10/23/19 08:07 Midazolam HCl (Versed 1 Mg/Ml) Confirm Administered Dose 2 mg .ROUTE .STK-MED ONE Stop: 10/23/19 08:03 Morphine Sulfate (Morphine) 4 mg IVPUSH ONETIME ONE Stop: 10/19/19 23:09 Last Admin: 10/19/19 23:29 Dose: 4 mg Documented by: Morphine Sulfate (Morphine) 4 mg IVPUSH ONETIME ONE Stop: 10/20/19 02:30 Last Admin: 10/20/19 02:37 Dose: 4 mg Documented by: Morphine Sulfate (Morphine) 1 mg IVPUSH Q4H PRN PRN Reason: Chest Pain Last Admin: 10/20/19 07:36 Dose: 1 mg Documented by: Morphine Sulfate (Morphine) 2 mg IVPUSH Q4H PRN PRN Reason: Pain Morphine Sulfate (Morphine) 2 mg IVPUSH Q4H PRN PRN Reason: Pain Last Admin: 10/20/19 15:04 Dose: 2 mg Documented by: Ondansetron HCl (Zofran) 4 mg IVPUSH ONETIME ONE Stop: 10/20/19 02:30 Last Admin: 10/20/19 02:36 Dose: 4 mg Documented by: Ondansetron HCl (Zofran) Confirm Administered Dose 4 mg .ROUTE .STK-MED ONE Stop: 10/23/19 08:02 Ondansetron HCl (Zofran) 4 mg IVPUSH Q6H PRN PRN Reason: Nausea/Vomiting Last Admin: 10/24/19 04:06 Dose: 4 mg Documented by: Potassium Chloride (Klor-Con M20) 40 meq PO ONETIME ONE Stop: 10/21/19 07:31 Last Admin: 10/21/19 08:40 Dose: 40 meq Documented by: Potassium Chloride (Klor-Con M20) 40 meq PO ONETIME ONE Stop: 10/22/19 07:31 Last Admin: 10/22/19 08:21 Dose: 40 meq Documented by: Propofol (Diprivan 20 Ml) Confirm Administered Dose 200 mg .ROUTE .STK-MED ONE Stop: 10/23/19 08:02 - Exam Wound/Incisions: Other (Purulent drainage on dressings. These were removed. [place] in place. Erythema, swelling and tenderness greatly improved. ) General: Alert, Oriented, Cooperative, Mild Distress Lungs: Normal Respiratory Effort Cardiovascular: Regular Rate Sepsis Event Note - Evaluation Sepsis Screening Result: No Definite Risk - Focused Exam Vital Signs: Vital Signs Temp Pulse Resp BP Pulse Ox 10/24/19 12:22 36.3 C 86 14 104/65 95 10/24/19 07:22 36.7 C 95 116/81 95 10/24/19 04:07 36.7 C 86 18 107/71 97 - Problem List & Annotations (1) Abscess SNOMED Code(s): 008753544 Code(s): L02.91 - CUTANEOUS ABSCESS, UNSPECIFIED Status: Acute Current Visit: Yes (2) Perianal cellulitis SNOMED Code(s): 029968981 Code(s): K61.0 - ANAL ABSCESS Status: Acute Priority: Medium Current Visit: Yes - Problem List Review Problem List Initiated/Reviewed/Updated: Yes - My Orders Last 24 Hours: Active Orders 24 hr Category Date Time Status VANCOMYCIN TROUGH [CHEM] Routine Lab 10/24/19 15:30 Ordered HYDROmorphone [Dilaudid] Med 10/24/19 13:31 Active 0.5 mg IVPUSH Q4H PRN Insulin Detemir [Levemir] Med 10/23/19 21:00 Active 14 unit SUBCUT BEDTIME Ondansetron [Zofran] Med 10/24/19 09:51 Active 4 mg IVPUSH Q4H PRN Vancomycin 1.25 gm Med 10/23/19 16:00 Active Sodium Chloride 0.9% [Normal Saline (AdvBag)] 250 ml IV Q8H oxyCODONE Med 10/24/19 13:31 Active 5 mg PO Q4H PRN Medication Orders Hydrocodone Bitart/Acetaminophen ([place] 325-10 Mg) 2 tab PO Q4H PRN PRN Reason: Pain Last Admin: 10/24/19 12:20 Dose: 2 tab Documented by: Admin: 10/24/19 07:32 Dose: 2 tab Documented by: Admin: 10/23/19 21:48 Dose: 2 tab Documented by: Admin: 10/23/19 17:39 Dose: 2 tab Documented by: Admin: 10/23/19 10:05 Dose: 2 tab Documented by: REDDY Fluoxetine HCl (Prozac) 20 mg PO DAILY [facility] Last Admin: 10/24/19 08:20 Dose: 20 mg Documented by: Admin: 10/23/19 10:05 Dose: 20 mg Documented by: Admin: 10/22/19 08:57 Dose: 20 mg Documented by: Admin: 10/21/19 08:42 Dose: 20 mg Documented by: OSCAR Cosigned by: MICHELLE Admin: 10/20/19 09:53 Dose: 20 mg Documented by: MICHELLE Hydromorphone HCl (Dilaudid) 0.5 mg IVPUSH Q4H PRN PRN Reason: Pain Piperacillin Sod/Tazobactam (Sod 3.375 gm/ Sodium Chloride) 50 mls @ 100 mls/hr IV Q6H [facility] Last Admin: 10/24/19 13:20 Dose: 100 mls/hr Documented by: Infusion: 10/24/19 13:20 Dose: 100 mls/hr Documented by: Admin: 10/24/19 06:04 Dose: 100 mls/hr Documented by: Infusion: 10/23/19 22:45 Dose: 100 mls/hr Documented by: Admin: 10/23/19 22:15 Dose: 100 mls/hr Documented by: Infusion: 10/23/19 18:25 Dose: 100 mls/hr Documented by: Admin: 10/23/19 17:55 Dose: 100 mls/hr Documented by: Infusion: 10/23/19 11:25 Dose: 100 mls/hr Documented by: Admin: 10/23/19 10:55 Dose: 100 mls/hr Documented by: Infusion: 10/23/19 06:32 Dose: 100 mls/hr Documented by: Admin: 10/23/19 06:02 Dose: 100 mls/hr Documented by: Infusion: 10/22/19 23:12 Dose: 100 mls/hr Documented by: Admin: 10/22/19 22:42 Dose: 100 mls/hr Documented by: Infusion: 10/22/19 17:43 Dose: 100 mls/hr Documented by: Admin: 10/22/19 17:13 Dose: 100 mls/hr Documented by: Infusion: 10/22/19 13:07 Dose: 100 mls/hr Documented by: Admin: 10/22/19 12:37 Dose: 100 mls/hr Documented by: Infusion: 10/22/19 05:40 Dose: 100 mls/hr Documented by: Admin: 10/22/19 05:10 Dose: 100 mls/hr Documented by: Infusion: 10/21/19 23:30 Dose: 100 mls/hr Documented by: Admin: 10/21/19 23:00 Dose: 100 mls/hr Documented by: Infusion: 10/21/19 17:46 Dose: 100 mls/hr Documented by: Admin: 10/21/19 17:16 Dose: 100 mls/hr Documented by: Infusion: 10/21/19 12:00 Dose: 100 mls/hr Documented by: Admin: 10/21/19 11:30 Dose: 100 mls/hr Documented by: Infusion: 10/21/19 06:06 Dose: 100 mls/hr Documented by: Admin: 10/21/19 05:36 Dose: 100 mls/hr Documented by: Infusion: 10/20/19 23:30 Dose: 100 mls/hr Documented by: Admin: 10/20/19 23:00 Dose: 100 mls/hr Documented by: Infusion: 10/20/19 17:20 Dose: 100 mls/hr Documented by: Admin: 10/20/19 16:50 Dose: 100 mls/hr Documented by: Infusion: 10/20/19 12:00 Dose: 100 mls/hr Documented by: Admin: 10/20/19 11:30 Dose: 100 mls/hr Documented by: MICHELLE Vancomycin HCl 1.25 gm/ Sodium (Chloride) 250 mls @ 166.667 mls/hr IV Q8H [facility] Last Admin: 10/24/19 08:17 Dose: 166.667 mls/hr Documented by: Infusion: 10/24/19 01:24 Dose: 166.667 mls/hr Documented by: Admin: 10/23/19 23:54 Dose: 166.667 mls/hr Documented by: Infusion: 10/23/19 17:36 Dose: 166.667 mls/hr Documented by: Admin: 10/23/19 16:06 Dose: 166.667 mls/hr Documented by: REDDY [facility] Last Admin: 10/24/19 12:22 Dose: Not Given Documented by: Admin: 10/24/19 07:38 Dose: 6 units Documented by: Admin: 10/23/19 17:37 Dose: 3 units Documented by: Admin: 10/23/19 11:35 Dose: Not Given Documented by: Admin: 10/23/19 07:04 Dose: 6 units Documented by: Admin: 10/22/19 17:22 Dose: 6 units Documented by: Admin: 10/22/19 12:40 Dose: 12 units Documented by: Admin: 10/22/19 08:58 Dose: 3 units Documented by: Admin: 10/21/19 17:15 Dose: 3 units Documented by: Admin: 10/21/19 13:38 Dose: 9 units Documented by: Admin: 10/21/19 08:50 Dose: 6 units Documented by: OSCAR Cosigned by: MICHELLE Admin: 10/20/19 18:12 Dose: 6 units Documented by: MICHELLE Insulin Detemir (Levemir) 14 unit SUBCUT BEDTIME [facility] Last Admin: 10/23/19 22:11 Dose: 14 units Documented by: NAIN Melatonin (Melatonin) 6 mg PO BEDTIME PRN PRN Reason: Insomnia Last Admin: 10/23/19 22:12 Dose: 6 mg Documented by: Admin: 10/22/19 22:50 Dose: 6 mg Documented by: Admin: 10/21/19 23:00 Dose: 6 mg Documented by: Admin: 10/20/19 22:48 Dose: 6 mg Documented by: SOSA Ondansetron HCl (Zofran) 4 mg IVPUSH Q4H PRN PRN Reason: Nausea Last Admin: 10/24/19 12:20 Dose: 4 mg Documented by: JEFF Oxycodone HCl (Oxycodone) 5 mg PO Q4H PRN PRN Reason: Pain Potassium Chloride (Klor-Con M20) 40 meq PO DAILY [facility] Last Admin: 10/24/19 08:19 Dose: 40 meq Documented by: Admin: 10/23/19 12:00 Dose: 40 meq Documented by: REDDY Vancomycin HCl (Pharmacy To Dose - Vancomycin) 1 dose .XX ASDIRECTED [facility] - Plan Plan (Free Text/Narrative):: The patient's internal packing was removed this morning. The wound looks amazing. No need for any further internal packing. 4 x 4 gauze dressing on outside of wounds to catch drainage. Can change as often as needed to keep the area clean and dry. Ok to wear pad in underware for extra drainage. Raysa drains to stay in place. Will follow up with patient in clinic on Friday and remove dressings then. Would complete a 10 day course of antibiotics given her diabetes and the severity of the infection she had. Ok to discharge from a surgical standpoint.
--- NOTE | 2019-10-24 18:23 | PCM.DCSUM1 ---
<Bennett Young - Last Filed: 10/24/19 19:57> Discharge Summary - Hospital Course Free Text/Narrative:: 34-year-old female with past medical history of type 2 diabetes was admitted on 10-19 for an abscess formation on the right buttock. Patient initially though she was having a hemorrhoid but noticed that there was an area of swelling and redness. Patient attempted to open the abscess with a razor blade. Attempt to drain the abscess failed at which point the patient presented to the ED. Patient also has a significant type 2 diabetes history and stated that she was not taking her home metformin for days leading up to her admission. Patient was seen by general surgery during her admission and was decided that the patient would need an excisional debridement and drainage of a complex multiloculated abscess of the right buttock. Procedure was performed which was tolerated well by the farzaneh partida. Patient was discharged with instructions to follow up with Dr Marcelino on Friday and remove dressings then. Patient discharged home with Bactrim DS X 7 days, Levemir 10 units, Percocet 5mg/325mg Q6Hrs Pain, and will resume home medications including metformin. Patient was seen by medical educator who went over her diabetes management protocol including medication usage and glucose monitoring. Patient understands protocol on discharge and will follow up with medical educator and PCP with any further questions Patient advised to use OTC Laxative and stool softeners for constipation. - Discharge Data Discharge Date: 10/24/19 Discharge Disposition: Home, Self-Care 01 Condition: Fair - Referral to Home Health Primary Care Physician: PCP Not In Area - Patient Summary/Data Operative Procedure(s) Performed: Excision and debridement of right buttock abscess Consults: Consultations 10/20/19 12:18 Consult to Physician [CONS] Routine 10/21/19 07:33 Consult to Emergency Planning And Response Manager [Consult to Diabetic Nurse Specialist] [CONS] Routine - Patient Instructions Diet: Diabetic Diet Activity: As Tolerated Driving: Do Not Drive Showering/Bathing: May Shower Wound/Incision Care: Keep Operative Site/Wound Site Clean and Dry Notify Provider of: Fever, Increased Pain, Swelling and Redness, Drainage, Nausea and/or Vomiting - Discharge Plan *PRESCRIPTION DRUG MONITORING PROGRAM REVIEWED*: Not Applicable *COPY OF PRESCRIPTION DRUG MONITORING REPORT IN PATIENT LANG: Not Applicable Prescriptions/Med Rec: Sulfamethoxazole/Trimethoprim [Bactrim Ds Tablet] 1 each PO BID 7 Days #14 tablet Insulin Detemir [Levemir] 10 unit SUBCUT BEDTIME #1 pen oxyCODONE HCl/Acetaminophen [Percocet 5-325 mg Tablet] 1 each PO Q6HR PRN 4 Days #20 tablet PRN Reason: Pain Home Medications: Home Meds FLUoxetine [PROzac] 20 mg PO DAILY 10/19/19 [History] metFORMIN [Glucophage] 1,000 mg PO BIDMEALS 10/19/19 [History] Insulin Detemir [Levemir] 10 unit SUBCUT BEDTIME #1 pen 10/24/19 [Rx] Sulfamethoxazole/Trimethoprim [Bactrim Ds Tablet] 1 each PO BID 7 Days #14 tablet 10/24/19 [Rx] oxyCODONE HCl/Acetaminophen [Percocet 5-325 mg Tablet] 1 each PO Q6HR PRN 4 Days #20 tablet 10/24/19 [Rx] Patient Handouts: Type 2 Diabetes Mellitus, Diagnosis, Adult, Insulin Treatment for Diabetes Mellitus, Oxycodone tablets or capsules, Cellulitis, Adult, [id number], Incision and Drainage, Care After, Insulin Detemir injection, Sulfamethoxazole; Trimethoprim, SMX-TMP tablets Referrals: Nohemi Farrar NP [Nurse Practitioner] - 10/28/19 11:00 am (Please arrive 15mins early. Bring ID, insurance info and your own mask.) Hui Marcelino MD [Physician] - - Discharge Summary/Plan Comment DC Time >30 min.: No - General Info Functional Status: Reports: Tolerating Diet - Review of Systems General: Reports: Other (Patient states 5/10 pain in right buttock area). Denies: Fever, Weakness, Fatigue HEENT: Denies: Headaches Pulmonary: Denies: Shortness of Breath, Cough Cardiovascular: Denies: Chest Pain, Palpitations Gastrointestinal: Reports: Constipation. Denies: Abdominal Pain, Decreased Appetite Psychiatric: Denies: Confusion, Depression - Patient Data Vitals - Most Recent: Last Vital Signs Temp 97.3 F 10/24/19 12:22 Pulse 86 10/24/19 12:22 Resp 14 10/24/19 12:22 BP 104/65 10/24/19 12:22 Pulse Ox 95 10/24/19 12:22 Weight - Most Recent: 71.259 kg I&O - Last 24 hours: Intake & Output 10/24/19 10/24/19 10/24/19 06:59 14:59 22:59 Intake Total 800 350 Output Total 3 Balance 797 350 Lab Results - Last 24 hrs: Laboratory Results - last 24 hr 10/23/19 10/24/19 10/24/19 Range/Units 22:10 06:00 06:00 WBC 10.73 (4.0-11.0) K/uL RBC 3.16 L (4.30-5.90) M/uL Hgb 9.4 L (12.0-16.0) g/dL Hct 28.7 L (36.0-46.0) % MCV 90.8 (80.0-98.0) fL MCH 29.7 (27.0-32.0) pg MCHC 32.8 (31.0-37.0) g/dL RDW Std Deviation 42.4 (28.0-62.0) fl RDW Coeff of Yuni 13 (11.0-15.0) % Plt Count 455 H (150-400) K/uL MPV 9.10 (7.40-12.00) fL Neut % (Auto) 76.4 (48.0-80.0) % Lymph % (Auto) 12.8 L (16.0-40.0) % Mercer % (Auto) 9.2 (0.0-15.0) % Eos % (Auto) 1.2 (0.0-7.0) % Baso % (Auto) 0.4 (0.0-1.5) % Neut # (Auto) 8.2 H (1.4-5.7) K/uL Lymph # (Auto) 1.4 (0.6-2.4) K/uL Mercer # (Auto) 1.0 H (0.0-0.8) K/uL Eos # (Auto) 0.1 (0.0-0.7) K/uL Baso # (Auto) 0.0 (0.0-0.1) K/uL Nucleated RBC % 0.0 /100WBC Nucleated RBCs # 0 K/uL Sodium 140 (136-145) mmol/L Potassium 3.6 (3.5-5.1) mmol/L Chloride 106 (98-107) mmol/L Carbon Dioxide 25.0 (21.0-32.0) mmol/L BUN 8 (7.0-18.0) mg/dL Creatinine 0.7 (0.6-1.0) mg/dL Est Cr Clr Drug Dosing 113.16 mL/min Estimated GFR (MDRD) > 60.0 ml/min Glucose 280 H (74-106) mg/dL POC Glucose 238 H (60-110) mg/dL Calcium 8.2 L (8.5-10.1) mg/dL Vancomycin Trough (5.0-10.0) ug/mL 10/24/19 10/24/19 10/24/19 Range/Units 06:26 11:14 15:31 WBC (4.0-11.0) K/uL RBC (4.30-5.90) M/uL Hgb (12.0-16.0) g/dL Hct (36.0-46.0) % MCV (80.0-98.0) fL MCH (27.0-32.0) pg MCHC (31.0-37.0) g/dL RDW Std Deviation (28.0-62.0) fl RDW Coeff of Yuni (11.0-15.0) % Plt Count (150-400) K/uL MPV (7.40-12.00) fL Neut % (Auto) (48.0-80.0) % Lymph % (Auto) (16.0-40.0) % Mercer % (Auto) (0.0-15.0) % Eos % (Auto) (0.0-7.0) % Baso % (Auto) (0.0-1.5) % Neut # (Auto) (1.4-5.7) K/uL Lymph # (Auto) (0.6-2.4) K/uL Mercer # (Auto) (0.0-0.8) K/uL Eos # (Auto) (0.0-0.7) K/uL Baso # (Auto) (0.0-0.1) K/uL Nucleated RBC % /100WBC Nucleated RBCs # K/uL Sodium (136-145) mmol/L Potassium (3.5-5.1) mmol/L Chloride (98-107) mmol/L Carbon Dioxide (21.0-32.0) mmol/L BUN (7.0-18.0) mg/dL Creatinine (0.6-1.0) mg/dL Est Cr Clr Drug Dosing mL/min Estimated GFR (MDRD) ml/min Glucose (74-106) mg/dL POC Glucose 248 H 143 H (60-110) mg/dL Calcium (8.5-10.1) mg/dL Vancomycin Trough 17.2 H (5.0-10.0) ug/mL GAEL Results - Last 24 hrs: Microbiology 10/20/19 01:45 Aerobic Blood Culture - Preliminary Blood NO GROWTH AFTER 4 DAYS Anaerobic Blood Culture - Preliminary NO GROWTH AFTER 4 DAYS 10/20/19 01:53 Aerobic Blood Culture - Preliminary Blood NO GROWTH AFTER 4 DAYS Anaerobic Blood Culture - Preliminary NO GROWTH AFTER 4 DAYS Med Orders - Current: Current Medications Discontinued Medications Acetaminophen (Tylenol) 650 mg PO Q6H PRN PRN Reason: Pain Last Admin: 10/20/19 15:00 Dose: 650 mg Documented by: Hydrocodone Bitart/Acetaminophen ([place] 325-5 Mg) 1 tab PO Q4H PRN PRN Reason: Pain Last Admin: 10/23/19 03:47 Dose: 1 tab Documented by: Hydrocodone Bitart/Acetaminophen ([place] 325-10 Mg) 2 tab PO Q4H PRN PRN Reason: Pain Last Admin: 10/24/19 17:04 Dose: 2 tab Documented by: Bupivacaine HCl (Sensorcaine-Mpf 0.5%) Confirm Administered Dose 10 ml .ROUTE .STK-MED ONE Stop: 10/23/19 07:11 Fentanyl (Sublimaze) Confirm Administered Dose 100 mcg .ROUTE .STK-MED ONE Stop: 10/23/19 08:02 Fentanyl (Sublimaze) Confirm Administered Dose 100 mcg .ROUTE .STK-MED ONE Stop: 10/23/19 08:07 Fluoxetine HCl (Prozac) 25 mg PO DAILY LOU Fluoxetine HCl (Prozac) 20 mg PO DAILY LOU Last Admin: 10/24/19 08:20 Dose: 20 mg Documented by: Hydromorphone HCl (Dilaudid) 0.5 mg IVPUSH Q4H PRN PRN Reason: Pain Last Admin: 10/22/19 12:33 Dose: 0.5 mg Documented by: Hydromorphone HCl (Dilaudid) 1 mg IVPUSH Q4H PRN PRN Reason: Pain Hydromorphone HCl (Dilaudid) 1 mg IVPUSH Q3H PRN PRN Reason: Pain Last Admin: 10/23/19 06:06 Dose: 1 mg Documented by: Hydromorphone HCl (Dilaudid) Confirm Administered Dose 2 mg .ROUTE .STK-MED ONE Stop: 10/23/19 08:03 Hydromorphone HCl (Dilaudid) 1 mg IV ONETIME ONE Stop: 10/23/19 09:18 Last Admin: 10/23/19 09:20 Dose: 1 mg Documented by: Hydromorphone HCl (Dilaudid) Confirm Administered Dose 2 mg .ROUTE .STK-MED ONE Stop: 10/23/19 09:19 Last Admin: 10/23/19 10:32 Dose: Not Given Documented by: Hydromorphone HCl (Dilaudid) 0.5 mg IVPUSH Q1H PRN PRN Reason: Pain Last Admin: 10/24/19 10:39 Dose: 0.5 mg Documented by: Hydromorphone HCl (Dilaudid) Confirm Administered Dose 2 mg .ROUTE .STK-MED ONE Stop: 10/23/19 10:20 Last Admin: 10/23/19 09:20 Dose: Not Given Documented by: Hydromorphone HCl (Dilaudid) 0.5 mg IVPUSH Q4H PRN PRN Reason: Pain Lactated Ringer's (Ringers, Lactated) 1,000 mls @ 999 mls/hr IV .BOLUS ONE Stop: 10/20/19 00:08 Last Admin: 10/19/19 23:29 Dose: 999 mls/hr Documented by: Lactated Ringer's (Ringers, Lactated) 1,000 mls @ 999 mls/hr IV .BOLUS ONE Stop: 10/20/19 01:12 Last Admin: 10/20/19 00:40 Dose: 999 mls/hr Documented by: Piperacillin Sod/Tazobactam (Sod 3.375 gm/ Sodium Chloride) 50 mls @ 100 mls/hr IV ONETIME ONE Stop: 10/20/19 01:57 Last Admin: 10/20/19 03:47 Dose: 100 mls/hr Documented by: Vancomycin HCl 1 gm/ Sodium (Chloride) 250 mls @ 166 mls/hr IV ONETIME ONE Stop: 10/20/19 02:58 Last Admin: 10/20/19 01:44 Dose: 166 mls/hr Documented by: Lactated Ringer's (Ringers, Lactated) 1,000 mls @ 999 mls/hr IV .BOLUS ONE Stop: 10/20/19 02:40 Last Admin: 10/20/19 01:45 Dose: 999 mls/hr Documented by: Lactated Ringer's (Ringers, Lactated) 1,000 mls @ 125 mls/hr IV ASDIRECTED [facility] Last Admin: 10/23/19 03:44 Dose: 125 mls/hr Documented by: Vancomycin HCl 1 gm/ Sodium (Chloride) 250 mls @ 166 mls/hr IV Q12H [facility] Last Admin: 10/21/19 14:53 Dose: 166 mls/hr Documented by: Piperacillin Sod/Tazobactam (Sod 3.375 gm/ Sodium Chloride) 50 mls @ 100 mls/hr IV Q6H [facility] Last Admin: 10/24/19 13:20 Dose: 100 mls/hr Documented by: Vancomycin HCl 1.25 gm/ Sodium (Chloride) 250 mls @ 166.667 mls/hr IV Q12H [facility] Last Admin: 10/23/19 19:16 Dose: Not Given Documented by: Sodium Chloride (Normal Saline) 1,000 mls @ 999 mls/hr IV .Bolus ONE Stop: 10/22/19 10:56 Last Admin: 10/22/19 10:37 Dose: 999 mls/hr Documented by: Vancomycin HCl 1.25 gm/ Sodium (Chloride) 250 mls @ 166.667 mls/hr IV Q8H [facility] Last Admin: 10/24/19 16:26 Dose: Not Given Documented by: Vancomycin HCl 1 gm/ Sodium (Chloride) 250 mls @ 166 mls/hr IV Q8H [facility] Ibuprofen (Motrin) 400 mg PO Q6H PRN PRN Reason: Pain Last Admin: 10/23/19 16:41 Dose: 400 mg Documented by: Insulin Aspart (Novolog) 0 unit SUBCUT TIDAC [facility]; Protocol Last Admin: 10/20/19 07:37 Dose: 6 units Documented by: Insulin Aspart (Novolog) 0 unit SUBCUT Q6H [facility]; Protocol Last Admin: 10/20/19 11:40 Dose: 9 units Documented by: Insulin Aspart (Novolog) 0 unit SUBCUT TIDAC [facility]; Protocol Last Admin: 10/24/19 12:22 Dose: Not Given Documented by: Insulin Detemir (Levemir) 10 unit SUBCUT ONETIME ONE Stop: 10/20/19 19:16 Last Admin: 10/20/19 20:49 Dose: 10 units Documented by: Insulin Detemir (Levemir) 12 unit SUBCUT BEDTIME [facility] Last Admin: 10/21/19 22:16 Dose: Not Given Documented by: Insulin Detemir (Levemir) 12 unit SUBCUT BEDTIME [facility] Last Admin: 10/22/19 21:35 Dose: 12 units Documented by: Insulin Detemir (Levemir) 14 unit SUBCUT BEDTIME [facility] Last Admin: 10/23/19 22:11 Dose: 14 units Documented by: Insulin Human Regular (Novolin R) 8 unit IVPUSH ONETIME ONE; Protocol Stop: 10/20/19 00:14 Last Admin: 10/20/19 00:41 Dose: 8 unit Documented by: Iopamidol (Isovue Multipack-370 (76%)) 75 ml IVPUSH ONETIME STA Stop: 10/20/19 00:39 Last Admin: 10/20/19 00:39 Dose: 75 ml Documented by: Iopamidol (Isovue Multipack-370 (76%)) 100 ml IVPUSH ONETIME ONE Stop: 10/22/19 12:24 Last Admin: 10/22/19 12:26 Dose: 100 ml Documented by: Ketorolac Tromethamine (Toradol) 15 mg IVPUSH ONETIME ONE Stop: 10/23/19 09:23 Last Admin: 10/23/19 09:25 Dose: 15 mg Documented by: Lidocaine (Xylocaine-Mpf 2%) Confirm Administered Dose 5 ml .ROUTE .STK-MED ONE Stop: 10/23/19 08:07 Melatonin (Melatonin) 6 mg PO BEDTIME PRN PRN Reason: Insomnia Last Admin: 10/23/19 22:12 Dose: 6 mg Documented by: Midazolam HCl (Versed 1 Mg/Ml) Confirm Administered Dose 2 mg .ROUTE .STK-MED ONE Stop: 10/23/19 08:03 Morphine Sulfate (Morphine) 4 mg IVPUSH ONETIME ONE Stop: 10/19/19 23:09 Last Admin: 10/19/19 23:29 Dose: 4 mg Documented by: Morphine Sulfate (Morphine) 4 mg IVPUSH ONETIME ONE Stop: 10/20/19 02:30 Last Admin: 10/20/19 02:37 Dose: 4 mg Documented by: Morphine Sulfate (Morphine) 1 mg IVPUSH Q4H PRN PRN Reason: Chest Pain Last Admin: 10/20/19 07:36 Dose: 1 mg Documented by: Morphine Sulfate (Morphine) 2 mg IVPUSH Q4H PRN PRN Reason: Pain Morphine Sulfate (Morphine) 2 mg IVPUSH Q4H PRN PRN Reason: Pain Last Admin: 10/20/19 15:04 Dose: 2 mg Documented by: Ondansetron HCl (Zofran) 4 mg IVPUSH ONETIME ONE Stop: 10/20/19 02:30 Last Admin: 10/20/19 02:36 Dose: 4 mg Documented by: Ondansetron HCl (Zofran) Confirm Administered Dose 4 mg .ROUTE .STK-MED ONE Stop: 10/23/19 08:02 Ondansetron HCl (Zofran) 4 mg IVPUSH Q6H PRN PRN Reason: Nausea/Vomiting Last Admin: 10/24/19 04:06 Dose: 4 mg Documented by: Ondansetron HCl (Zofran) 4 mg IVPUSH Q4H PRN PRN Reason: Nausea Last Admin: 10/24/19 12:20 Dose: 4 mg Documented by: Oxycodone HCl (Oxycodone) 5 mg PO Q4H PRN PRN Reason: Pain Last Admin: 10/24/19 14:26 Dose: 5 mg Documented by: Potassium Chloride (Klor-Con M20) 40 meq PO ONETIME ONE Stop: 10/21/19 07:31 Last Admin: 10/21/19 08:40 Dose: 40 meq Documented by: Potassium Chloride (Klor-Con M20) 40 meq PO ONETIME ONE Stop: 10/22/19 07:31 Last Admin: 10/22/19 08:21 Dose: 40 meq Documented by: Potassium Chloride (Klor-Con M20) 40 meq PO DAILY [facility] Last Admin: 10/24/19 08:19 Dose: 40 meq Documented by: Propofol (Diprivan 20 Ml) Confirm Administered Dose 200 mg .ROUTE .STK-MED ONE Stop: 10/23/19 08:02 Vancomycin HCl (Pharmacy To Dose - Vancomycin) 1 dose .XX ASDIRECTED LOU - Exam General: Reports: Alert, Oriented, Cooperative HEENT: Reports: EOMI Neck: Reports: Trachea Midline Lungs: Reports: Clear to Auscultation, Normal Respiratory Effort Cardiovascular: Reports: Regular Rate, Regular Rhythm GI/Abdominal Exam: Normal Bowel Sounds, Non-Tender, No Distention Extremities: Normal Range of Motion, No Pedal Edema Skin: Reports: Warm, Dry Wound/Incisions: Reports: Healing Well, Drainage Psy/Mental Status: Reports: Alert <Raphael Levy - Last Filed: 10/24/19 22:31> Discharge Summary - Referral to Home Health Primary Care Physician: PCP Not In Area - Patient Summary/Data Consults: Consultations 10/20/19 12:18 Consult to Physician [CONS] Routine 10/21/19 07:33 Consult to Emergency Planning And Response Manager [Consult to Diabetic Nurse Specialist] [CONS] Routine - Patient Data Vitals - Most Recent: Last Vital Signs Temp 36.3 C 10/24/19 12:22 Pulse 86 10/24/19 12:22 Resp 14 10/24/19 12:22 BP 104/65 10/24/19 12:22 Pulse Ox 95 10/24/19 12:22 I&O - Last 24 hours: Intake & Output 10/24/19 10/24/19 10/24/19 06:59 14:59 22:59 Intake Total 800 350 Output Total 3 Balance 797 350 Lab Results - Last 24 hrs: Laboratory Results - last 24 hr 10/24/19 10/24/19 10/24/19 Range/Units 06:00 06:00 06:26 WBC 10.73 (4.0-11.0) K/uL RBC 3.16 L (4.30-5.90) M/uL Hgb 9.4 L (12.0-16.0) g/dL Hct 28.7 L (36.0-46.0) % MCV 90.8 (80.0-98.0) fL MCH 29.7 (27.0-32.0) pg MCHC 32.8 (31.0-37.0) g/dL RDW Std Deviation 42.4 (28.0-62.0) fl RDW Coeff of Yuni 13 (11.0-15.0) % Plt Count 455 H (150-400) K/uL MPV 9.10 (7.40-12.00) fL Neut % (Auto) 76.4 (48.0-80.0) % Lymph % (Auto) 12.8 L (16.0-40.0) % Mercer % (Auto) 9.2 (0.0-15.0) % Eos % (Auto) 1.2 (0.0-7.0) % Baso % (Auto) 0.4 (0.0-1.5) % Neut # (Auto) 8.2 H (1.4-5.7) K/uL Lymph # (Auto) 1.4 (0.6-2.4) K/uL Mercer # (Auto) 1.0 H (0.0-0.8) K/uL Eos # (Auto) 0.1 (0.0-0.7) K/uL Baso # (Auto) 0.0 (0.0-0.1) K/uL Nucleated RBC % 0.0 /100WBC Nucleated RBCs # 0 K/uL Sodium 140 (136-145) mmol/L Potassium 3.6 (3.5-5.1) mmol/L Chloride 106 (98-107) mmol/L Carbon Dioxide 25.0 (21.0-32.0) mmol/L BUN 8 (7.0-18.0) mg/dL Creatinine 0.7 (0.6-1.0) mg/dL Est Cr Clr Drug Dosing 113.16 mL/min Estimated GFR (MDRD) > 60.0 ml/min Glucose 280 H (74-106) mg/dL POC Glucose 248 H (60-110) mg/dL Calcium 8.2 L (8.5-10.1) mg/dL Vancomycin Trough (5.0-10.0) ug/mL 10/24/19 10/24/19 Range/Units 11:14 15:31 WBC (4.0-11.0) K/uL RBC (4.30-5.90) M/uL Hgb (12.0-16.0) g/dL Hct (36.0-46.0) % MCV (80.0-98.0) fL MCH (27.0-32.0) pg MCHC (31.0-37.0) g/dL RDW Std Deviation (28.0-62.0) fl RDW Coeff of Yuni (11.0-15.0) % Plt Count (150-400) K/uL MPV (7.40-12.00) fL Neut % (Auto) (48.0-80.0) % Lymph % (Auto) (16.0-40.0) % Mercer % (Auto) (0.0-15.0) % Eos % (Auto) (0.0-7.0) % Baso % (Auto) (0.0-1.5) % Neut # (Auto) (1.4-5.7) K/uL Lymph # (Auto) (0.6-2.4) K/uL Mercer # (Auto) (0.0-0.8) K/uL Eos # (Auto) (0.0-0.7) K/uL Baso # (Auto) (0.0-0.1) K/uL Nucleated RBC % /100WBC Nucleated RBCs # K/uL Sodium (136-145) mmol/L Potassium (3.5-5.1) mmol/L Chloride (98-107) mmol/L Carbon Dioxide (21.0-32.0) mmol/L BUN (7.0-18.0) mg/dL Creatinine (0.6-1.0) mg/dL Est Cr Clr Drug Dosing mL/min Estimated GFR (MDRD) ml/min Glucose (74-106) mg/dL POC Glucose 143 H (60-110) mg/dL Calcium (8.5-10.1) mg/dL Vancomycin Trough 17.2 H (5.0-10.0) ug/mL GAEL Results - Last 24 hrs: Microbiology 10/20/19 01:45 Aerobic Blood Culture - Preliminary Blood NO GROWTH AFTER 4 DAYS Anaerobic Blood Culture - Preliminary NO GROWTH AFTER 4 DAYS 10/20/19 01:53 Aerobic Blood Culture - Preliminary Blood NO GROWTH AFTER 4 DAYS Anaerobic Blood Culture - Preliminary NO GROWTH AFTER 4 DAYS Med Orders - Current: Current Medications Discontinued Medications Acetaminophen (Tylenol) 650 mg PO Q6H PRN PRN Reason: Pain Last Admin: 10/20/19 15:00 Dose: 650 mg Documented by: Hydrocodone Bitart/Acetaminophen ([place] 325-5 Mg) 1 tab PO Q4H PRN PRN Reason: Pain Last Admin: 10/23/19 03:47 Dose: 1 tab Documented by: Hydrocodone Bitart/Acetaminophen ([place] 325-10 Mg) 2 tab PO Q4H PRN PRN Reason: Pain Last Admin: 10/24/19 17:04 Dose: 2 tab Documented by: Bupivacaine HCl (Sensorcaine-Mpf 0.5%) Confirm Administered Dose 10 ml .ROUTE .STK-MED ONE Stop: 10/23/19 07:11 Fentanyl (Sublimaze) Confirm Administered Dose 100 mcg .ROUTE .STK-MED ONE Stop: 10/23/19 08:02 Fentanyl (Sublimaze) Confirm Administered Dose 100 mcg .ROUTE .STK-MED ONE Stop: 10/23/19 08:07 Fluoxetine HCl (Prozac) 25 mg PO DAILY LOU Fluoxetine HCl (Prozac) 20 mg PO DAILY LOU Last Admin: 10/24/19 08:20 Dose: 20 mg Documented by: Hydromorphone HCl (Dilaudid) 0.5 mg IVPUSH Q4H PRN PRN Reason: Pain Last Admin: 10/22/19 12:33 Dose: 0.5 mg Documented by: Hydromorphone HCl (Dilaudid) 1 mg IVPUSH Q4H PRN PRN Reason: Pain Hydromorphone HCl (Dilaudid) 1 mg IVPUSH Q3H PRN PRN Reason: Pain Last Admin: 10/23/19 06:06 Dose: 1 mg Documented by: Hydromorphone HCl (Dilaudid) Confirm Administered Dose 2 mg .ROUTE .STK-MED ONE Stop: 10/23/19 08:03 Hydromorphone HCl (Dilaudid) 1 mg IV ONETIME ONE Stop: 10/23/19 09:18 Last Admin: 10/23/19 09:20 Dose: 1 mg Documented by: Hydromorphone HCl (Dilaudid) Confirm Administered Dose 2 mg .ROUTE .STK-MED ONE Stop: 10/23/19 09:19 Last Admin: 10/23/19 10:32 Dose: Not Given Documented by: Hydromorphone HCl (Dilaudid) 0.5 mg IVPUSH Q1H PRN PRN Reason: Pain Last Admin: 10/24/19 10:39 Dose: 0.5 mg Documented by: Hydromorphone HCl (Dilaudid) Confirm Administered Dose 2 mg .ROUTE .STK-MED ONE Stop: 10/23/19 10:20 Last Admin: 10/23/19 09:20 Dose: Not Given Documented by: Hydromorphone HCl (Dilaudid) 0.5 mg IVPUSH Q4H PRN PRN Reason: Pain Lactated Ringer's (Ringers, Lactated) 1,000 mls @ 999 mls/hr IV .BOLUS ONE Stop: 10/20/19 00:08 Last Admin: 10/19/19 23:29 Dose: 999 mls/hr Documented by: Lactated Ringer's (Ringers, Lactated) 1,000 mls @ 999 mls/hr IV .BOLUS ONE Stop: 10/20/19 01:12 Last Admin: 10/20/19 00:40 Dose: 999 mls/hr Documented by: Piperacillin Sod/Tazobactam (Sod 3.375 gm/ Sodium Chloride) 50 mls @ 100 mls/hr IV ONETIME ONE Stop: 10/20/19 01:57 Last Admin: 10/20/19 03:47 Dose: 100 mls/hr Documented by: Vancomycin HCl 1 gm/ Sodium (Chloride) 250 mls @ 166 mls/hr IV ONETIME ONE Stop: 10/20/19 02:58 Last Admin: 10/20/19 01:44 Dose: 166 mls/hr Documented by: Lactated Ringer's (Ringers, Lactated) 1,000 mls @ 999 mls/hr IV .BOLUS ONE Stop: 10/20/19 02:40 Last Admin: 10/20/19 01:45 Dose: 999 mls/hr Documented by: Lactated Ringer's (Ringers, Lactated) 1,000 mls @ 125 mls/hr IV ASDIRECTED [facility] Last Admin: 10/23/19 03:44 Dose: 125 mls/hr Documented by: Vancomycin HCl 1 gm/ Sodium (Chloride) 250 mls @ 166 mls/hr IV Q12H [facility] Last Admin: 10/21/19 14:53 Dose: 166 mls/hr Documented by: Piperacillin Sod/Tazobactam (Sod 3.375 gm/ Sodium Chloride) 50 mls @ 100 mls/hr IV Q6H [facility] Last Admin: 10/24/19 13:20 Dose: 100 mls/hr Documented by: Vancomycin HCl 1.25 gm/ Sodium (Chloride) 250 mls @ 166.667 mls/hr IV Q12H [facility] Last Admin: 10/23/19 19:16 Dose: Not Given Documented by: Sodium Chloride (Normal Saline) 1,000 mls @ 999 mls/hr IV .Bolus ONE Stop: 10/22/19 10:56 Last Admin: 10/22/19 10:37 Dose: 999 mls/hr Documented by: Vancomycin HCl 1.25 gm/ Sodium (Chloride) 250 mls @ 166.667 mls/hr IV Q8H [facility] Last Admin: 10/24/19 16:26 Dose: Not Given Documented by: Vancomycin HCl 1 gm/ Sodium (Chloride) 250 mls @ 166 mls/hr IV Q8H [facility] Ibuprofen (Motrin) 400 mg PO Q6H PRN PRN Reason: Pain Last Admin: 10/23/19 16:41 Dose: 400 mg Documented by: Insulin Aspart (Novolog) 0 unit SUBCUT TIDAC [facility]; Protocol Last Admin: 10/20/19 07:37 Dose: 6 units Documented by: Insulin Aspart (Novolog) 0 unit SUBCUT Q6H [facility]; Protocol Last Admin: 10/20/19 11:40 Dose: 9 units Documented by: Insulin Aspart (Novolog) 0 unit SUBCUT TIDAC [facility]; Protocol Last Admin: 10/24/19 12:22 Dose: Not Given Documented by: Insulin Detemir (Levemir) 10 unit SUBCUT ONETIME ONE Stop: 10/20/19 19:16 Last Admin: 10/20/19 20:49 Dose: 10 units Documented by: Insulin Detemir (Levemir) 12 unit SUBCUT BEDTIME [facility] Last Admin: 10/21/19 22:16 Dose: Not Given Documented by: Insulin Detemir (Levemir) 12 unit SUBCUT BEDTIME [facility] Last Admin: 10/22/19 21:35 Dose: 12 units Documented by: Insulin Detemir (Levemir) 14 unit SUBCUT BEDTIME [facility] Last Admin: 10/23/19 22:11 Dose: 14 units Documented by: Insulin Human Regular (Novolin R) 8 unit IVPUSH ONETIME ONE; Protocol Stop: 10/20/19 00:14 Last Admin: 10/20/19 00:41 Dose: 8 unit Documented by: Iopamidol (Isovue Multipack-370 (76%)) 75 ml IVPUSH ONETIME STA Stop: 10/20/19 00:39 Last Admin: 10/20/19 00:39 Dose: 75 ml Documented by: Iopamidol (Isovue Multipack-370 (76%)) 100 ml IVPUSH ONETIME ONE Stop: 10/22/19 12:24 Last Admin: 10/22/19 12:26 Dose: 100 ml Documented by: Ketorolac Tromethamine (Toradol) 15 mg IVPUSH ONETIME ONE Stop: 10/23/19 09:23 Last Admin: 10/23/19 09:25 Dose: 15 mg Documented by: Lidocaine (Xylocaine-Mpf 2%) Confirm Administered Dose 5 ml .ROUTE .STK-MED ONE Stop: 10/23/19 08:07 Melatonin (Melatonin) 6 mg PO BEDTIME PRN PRN Reason: Insomnia Last Admin: 10/23/19 22:12 Dose: 6 mg Documented by: Midazolam HCl (Versed 1 Mg/Ml) Confirm Administered Dose 2 mg .ROUTE .STK-MED ONE Stop: 10/23/19 08:03 Morphine Sulfate (Morphine) 4 mg IVPUSH ONETIME ONE Stop: 10/19/19 23:09 Last Admin: 10/19/19 23:29 Dose: 4 mg Documented by: Morphine Sulfate (Morphine) 4 mg IVPUSH ONETIME ONE Stop: 10/20/19 02:30 Last Admin: 10/20/19 02:37 Dose: 4 mg Documented by: Morphine Sulfate (Morphine) 1 mg IVPUSH Q4H PRN PRN Reason: Chest Pain Last Admin: 10/20/19 07:36 Dose: 1 mg Documented by: Morphine Sulfate (Morphine) 2 mg IVPUSH Q4H PRN PRN Reason: Pain Morphine Sulfate (Morphine) 2 mg IVPUSH Q4H PRN PRN Reason: Pain Last Admin: 10/20/19 15:04 Dose: 2 mg Documented by: Ondansetron HCl (Zofran) 4 mg IVPUSH ONETIME ONE Stop: 10/20/19 02:30 Last Admin: 10/20/19 02:36 Dose: 4 mg Documented by: Ondansetron HCl (Zofran) Confirm Administered Dose 4 mg .ROUTE .STK-MED ONE Stop: 10/23/19 08:02 Ondansetron HCl (Zofran) 4 mg IVPUSH Q6H PRN PRN Reason: Nausea/Vomiting Last Admin: 10/24/19 04:06 Dose: 4 mg Documented by: Ondansetron HCl (Zofran) 4 mg IVPUSH Q4H PRN PRN Reason: Nausea Last Admin: 10/24/19 12:20 Dose: 4 mg Documented by: Oxycodone HCl (Oxycodone) 5 mg PO Q4H PRN PRN Reason: Pain Last Admin: 10/24/19 14:26 Dose: 5 mg Documented by: Potassium Chloride (Klor-Con M20) 40 meq PO ONETIME ONE Stop: 10/21/19 07:31 Last Admin: 10/21/19 08:40 Dose: 40 meq Documented by: Potassium Chloride (Klor-Con M20) 40 meq PO ONETIME ONE Stop: 10/22/19 07:31 Last Admin: 10/22/19 08:21 Dose: 40 meq Documented by: Potassium Chloride (Klor-Con M20) 40 meq PO DAILY LOU Last Admin: 10/24/19 08:19 Dose: 40 meq Documented by: Propofol (Diprivan 20 Ml) Confirm Administered Dose 200 mg .ROUTE .STK-MED ONE Stop: 10/23/19 08:02 Vancomycin HCl (Pharmacy To Dose - Vancomycin) 1 dose .XX ASDIRECTED LOU - Free Text/Narrative Note: I have seen and evaluated the patient. I have discussed findings and treatment plan with resident. I agree with the assessment and plan as outlined in the following note.
== END 2019-10-24 17:05 | disposition home or self-care (01) | DRG 383 ==
LOC: MW.ED 22:20 → MW.MS 10-20 01:37 → OBSVTOIN 10-21 10:26 → MW.MS 10-21 11:24
PROVIDERS: ADMIT Student in an Organized Health Care Education/Training Program; ATTEND Student in an Organized Health Care Education/Training Program
PROC: 0JB90ZZ Excision of Buttock Subcutaneous Tissue and Fascia, Open Approach (ICD-10-PCS; principal; 2019-10-23)
DX: L02.31 Cutaneous abscess of buttock (principal); E11.9 Type 2 diabetes mellitus without complications; Z79.4 Long term (current) use of insulin; F41.9 Anxiety disorder, unspecified; F32.9 Major depressive disorder, single episode, unspecified; F17.210 Nicotine dependence, cigarettes, uncomplicated; K61.0 Anal abscess; E87.1 Hypo-osmolality and hyponatremia; E87.6 Hypokalemia; Z20.828 Contact with and (suspected) exposure to other viral communicable diseases
CPT/HCPCS: 00902; 36415; 72193; 72193-26; 74177; 74177-26; 80048; 80053; 80202; 81001; 82009; 82272; 82962; 83036; 83605; 84703; 85025; 85730; 87040; 87070; 87075; 87205; 96361; 96365; 96366; 96367; 96375; 96376; 99219; 99231; 99232; 99238; 99285-25; 99291; A9270-GY; G0378; J1170; J1815-GY; J1885; J2001; J2250; J2270; J2405; J2543; J2704; J3010; J3370; J3490; J7030; J7050; J7120; Q9967; U0002